=== PATIENT | female | born 1955 | race Caucasian/White ===

== ENCOUNTER 2023-04-29 16:21 | Outpatient (AMB) | payer OTHER, SELFPAY ==
[2023-04-29 16:23] VITALS: BP 112/80; PULSE 81; O2SAT 100; BMI 28.8
--- NOTE | 2023-04-29 16:23 | A.OFFPC_ITS ---
Vital Signs 04/29/23 16:23 Height 5 ft 5 in Weight 173 lb BMI 28.8 BP 112/80 Blood Pressure Location Lt brachial Position Sitting Pulse 81 Pulse Source Pulse Oximeter Temp Source Skin Pulse Oximetry (%) 100 Oxygen Delivery Method Room Air Intake Visit Reasons: PE Photograph Enlarger Required: No Allergies No Known Allergies Allergy (Verified 04/29/23 16:36) Medication List - Last Reconciled 04/29/23 by EAGLE Richardson aspirin 81 mg PO DAILY atorvastatin 40 mg PO DAILY hydroxyzine HCl 25 mg PO Q12H PRN lisinopril 30 mg PO DAILY triamcinolone acetonide 0.1% 1 appl topical BID PRN zolpidem 5 mg PO BEDTIME PRN Tobacco use date assessed: 04/29/23 Fall risk assessment: No Falls in past year Last assessed Fall Risk: 04/29/23 Dental Screening Dental Screen Date: 04/29/23 Did you have a dental visit in the last 12 months?: Yes Did you have a dental problem in the last 6 months where you did not have access to dental care?: No Was dental information given to patient?: Patient has dentist HPI PE HPI Details Patient is a 68-year-old female presents today for physical exam. Medical history significant for hypertension, hypercholesterolemia, insomnia, anxiety. Patient reports last colonoscopy in 2017 which was normal and was done at [facility], she is due for colonoscopy every 5 years, she will call for a colonoscopy. Patient reports that she received a letter for mammogram from [facility], she will make an appointment, she will also make an appointment for bone density screen. Patient reports that hydroxyzine is not helping with anxiety, she is interested in sertraline. She will be seeing therapist. Patient reports intermittent urinary incontinence, reports history of right total knee replacement couple months ago and followed by [facility], reports that urinary incontinence might be due to her not getting on time to the bathroom. She will speak with her gynecology in regards to this. Up-to-date with immunizations. 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 1. Little interest or pleasure in doing things: not at all 2. Feeling down, depressed, or hopeless: not at all 3. Trouble falling or staying asleep, or sleeping too much: not at all 4. Feeling tired or having little energy: not at all 5. Poor appetite or overeating: not at all 6. Feeling bad about yourself - or that you are a failure or have let yourself or your family down: not at all 7. Trouble concentrating on things, such as reading the newspaper or watching television: not at all 8. Moving or speaking so slowly that other people could have noticed. Or the opposite - being so fidgety or restless that you have been moving around a lot more than usual: not at all 9. Thoughts that you would be better off or of hurting yourself in some way: not at all Total score: 0 Depression Screening Interpretation: Negative 10078 - PHQ-9 Billing: Yes Source: Developed by Drs. Andrea Jerry, Aliza Banegas, Sarthak Campbell and colleagues, with an educational gucci from [employer]. Thrive Questionnaire Date Thrive assessed: 04/29/23 I am a: Patient What is your living situation today?: I have a steady place to live Within the past 12 months, did the food you bought not last and you didn't have the money to get more?: Never true Within the past 12 months, did you worry whether your food would run out before you got money to buy more?: Never true Do you have trouble paying for medicines?: No Do you have trouble getting transportation to medical appointments?: No Do you have trouble paying your heating and electricity bill?: No Do you have trouble taking care of your child, family member or friend?: No Do you have trouble with day-to-day activities such as bathing, preparing meals, shopping, managing finances, etc.?: No Are you currently unemployed and looking for a job?: No Are you interested in more education?: No Currently or been in a relationship where the following occur: no concerns reported AUDIT C Alcohol Use Questionnaire (AUDIT-C) 1. How often do you have a drink containing alcohol?: 4 or more times a week (wine ) 2. How many drinks containing alcohol do you have on a typical day when you are drinking?: 1 or 2 3. How often do you have six or more drinks on one occasion?: Never Total Score: 4 Score Reviewed/Action Taken: Yes EPIFANIO-7 AMB Questionnaire EPIFANIO-7 Date EPIFANIO - 7 assessed: 04/29/23 Feeling nervous, anxious, or on edge: 1 = Several days Not being able to stop or control worryin = Not at all Worrying too much about different things: 0 = Not at all Trouble relaxin = Not at all Being so restless that it is hard to sit still: 0 = Not at all Becoming easily annoyed or irritable: 0 = Not at all Feeling afraid as if something awful might happen: 0 = Not at all Total EPIFANIO-7 score (0-4 normal; 5-9 mild; 10-14 moderate; 15-21 severe): 1 Source: Developed by Drs. Andrea Jerry, Aliza Banegas, Sarthak Campbell and colleagues, with an educational gucci from [employer]. EPIFANIO-7 Assessment Billing EPIFANIO-7 Assessment Tool: EPIFANIO-7 Assessment 54056 Review of Systems Const Denies body aches, Denies chills, Denies fever(s) and Denies headache(s) Eyes Denies change in vision ENT Denies dizziness, Denies otalgia, Denies headache(s), Denies nasal discharge, Denies sinus pain and Denies sore throat Card Denies chest pain, Denies edema, Denies lightheadedness and Denies dyspnea Resp Denies chest congestion, Denies cough and Denies dyspnea GI Denies abdominal pain, Reports constipation (Intermittent), Denies diarrhea, Denies nausea and Denies vomiting Reports as per HPI and Denies dysuria Musc Denies myalgias Skin/Breast Denies lesions and Denies rash Neuro Denies dizziness and Denies headache(s) Physical exam (Primary Care) Vital Signs: Last Vital Signs Pulse 81 04/29/23 16:23 BP 112/80 04/29/23 16:23 Pulse Ox 100 04/29/23 16:23 Oxygen Delivery Method Room Air 04/29/23 16:23 BMI result Body Mass Index 28.8 Tobacco/Smoking Status: Tobacco use Status Tobacco use date assessed 04/29/23 04/29/23 16:31 Patient Tobacco Use Status Former Tobacco user 04/29/23 16:31 e-Cigarette/Vaping Use Never Used 04/29/23 16:31 PHQ-9: PHQ-9 Score PHQ-9: Total score 0 04/29/23 16:31 Depression Screening Interpretation: Negative Thrive Assessment: Date of Thrive Assessment Date Thrive assessed 04/29/23 04/29/23 16:31 Currently or been in a relationship where the following occur: no concerns reported Const General: cooperative and no acute distress Orientation/consciousness: patient oriented x3 HENMT Head: Yes normocephalic and Yes atraumatic Ears: TM's normal bilaterally Face and sinus: Yes sinuses nontender Mouth: oropharynx normal and moist mucous membranes Throat: Yes posterior oropharynx normal Eyes General: appearance normal, both eyes and all related structures Pupils: Equal, round and reactive pupils present EOM: EOMs intact bilaterally Neck Neck: Yes normal visual inspection, Yes full ROM and Yes no lymphadenopathy Thyroid: Thyroid normal Resp Effort & Inspection: normal respiratory effort and able to speak in complete sentences Auscultation: clear to auscultation bilaterally, no crackles, no rales, no rhonchi and no wheezes Cardio Rate: regular rate Rhythm: regular rhythm Heart sounds: S1 normal heart sound present, S2 normal heart sound present and no murmurs GI Palpation (GI): Soft to palpation, not firm, nontender, no guarding, not rigid and no hepatosplenomegaly Auscultation: normal bowel sounds Skin General skin exam: no rashes or lesions noted Neuro General: patient oriented x3 Cranial nerves: Yes Equal, round and reactive pupils present Gait exam (Neuro): Normal gait present Extrem General: Yes full ROM and No edema Assessment and Plan Assessment & Plan (1) Anxiety: Code(s): F41.9 - Anxiety disorder, unspecified Plan: Start sertraline 25 mg daily - adverse reactions reviewed with the patient and discussed when notify provider or go to the emergency department Patient agreed with the plan Follow-up in 6 weeks (2) Insomnia: Code(s): G47.00 - Insomnia, unspecified Plan: Zolpidem 5 mg at bedtime p.r.n. Sleep hygiene (3) Hypercholesterolemia: Code(s): E78.00 - Pure hypercholesterolemia, unspecified Plan: LDL 107 07/2022 Atorvastatin 40 mg daily Low-cholesterol diet (4) Essential hypertension: Code(s): I10 - Essential (primary) hypertension Plan: Goal BP equal or less than 140/90 Lisinopril 30 mg daily Low-sodium diet and healthy food choices (5) Physical exam: Comment: Reports due for colonoscopy this 2021. Due every 5 years d/t father hx of colon cancer. Last pap with Dr. Bell[facility] [place]. UTD with eye exam. Reports UTD COVID IZs, shingrix X2, flu. Code(s): Z00.00 - Encounter for general adult medical examination without abnormal findings (6) Screening for breast cancer: Code(s): Z12.39 - Encounter for other screening for malignant neoplasm of breast Plan: Patient received a letter from [facility] for a mammogram, she will call to make an appointment (7) Screening for colon cancer: Code(s): Z12.11 - Encounter for screening for malignant neoplasm of colon Plan: Patient will call [facility] for a colonoscopy-reports she has a phone number (8) Post-menopausal: Code(s): Z78.0 - Asymptomatic menopausal state Plan: Patient will call [facility] for bone density screen Orders: Orders Vitamin B12 and Folate Today Z00.00 - Encounter for general adult medical examination without abnormal findings Comprehensive [place]. Panel Fast Today I10 - Essential (primary) hypertension Lipid Panel Today E78.00 - Pure hypercholesterolemia, unspecified TSH reflex Free T4 Today I10 - Essential (primary) hypertension Vitamin D 25-OH Total Today Z00.00 - Encounter for general adult medical examination without abnormal findings Complete Blood Count Auto Diff Today I10 - Essential (primary) hypertension Medications: New sertraline 25 mg PO DAILY 30 tabs 2RF F41.9 - Anxiety disorder, unspecified Refilled zolpidem 5 mg PO BEDTIME PRN 30 tabs 0RF insomnia G47.00 - Insomnia, unspecified Discontinued hydroxyzine HCl Discontinued Reason: Patient no longer taking 25 mg PO Q12H PRN 14 tabs 0RF anxiety F41.9 - Anxiety disorder, unspecified Coding Level of Care Code Est Pt Prev Care >65y(92465) Diagnoses Anxiety F41.9 Insomnia G47.00 Hypercholesterolemia E78.00 Essential hypertension I10 Physical exam Z00.00 Screening for breast cancer Z12.39 Screening for colon cancer Z12.11 Post-menopausal Z78.0 Additional Codes EPIFANIO-7 Assessment Billing - EPIFANIO-7 Assessment Tool: EPIFANIO-7 Assessment 84744 ([id number])
== END 2023-04-29 17:07 | disposition home or self-care (01) ==
PROVIDERS: PCP Nurse Practitioner Family; Visit Provider Nurse Practitioner Family
DX: Z00.00 Encounter for general adult medical examination without abnormal findings (principal); F41.9 Anxiety disorder, unspecified; G47.00 Insomnia, unspecified; I10 Essential (primary) hypertension; E78.00 Pure hypercholesterolemia, unspecified; Z12.39 Encounter for other screening for malignant neoplasm of breast; Z12.11 Encounter for screening for malignant neoplasm of colon; Z78.0 Asymptomatic menopausal state
CPT/HCPCS: 99397

== ENCOUNTER 2023-06-08 16:46 | Outpatient (AMB) | payer OTHER, SELFPAY ==
--- NOTE | 2023-06-08 16:49 | A.OFFPC_ITS ---
Vital Signs 06/08/23 16:50 Height 5 ft 5 in Weight 177 lb BMI 29.5 BP 152/70 H Blood Pressure Location Lt brachial Position Sitting Pulse 65 Pulse Source Pulse Oximeter Pulse Oximetry (%) 100 Oxygen Delivery Method Room Air Intake Visit Reasons: F/u anxiety Allergies No Known Allergies Allergy (Verified 06/08/23 16:55) Medication List - Last Reconciled 06/08/23 by EAGLE Richardson aspirin 81 mg PO DAILY atorvastatin 40 mg PO DAILY lisinopril 30 mg PO DAILY sertraline 50 mg PO DAILY triamcinolone acetonide 0.1% 1 appl topical BID PRN zolpidem 5 mg PO BEDTIME PRN Tobacco use date assessed: 06/08/23 Fall risk assessment: No Falls in past year Last assessed Fall Risk: 06/08/23 Dental Screening Dental Screen Date: 06/08/23 Did you have a dental visit in the last 12 months?: Yes Did you have a dental problem in the last 6 months where you did not have access to dental care?: No Was dental information given to patient?: Patient has dentist HPI F/u anxiety HPI Details Patient is a 68-year-old female who presents today to follow-up on anxiety. Medical history significant for hypertension, hypercholesterolemia, vitamin-D deficiency, insomnia. At the last office visit patient was started on sertraline 25 mg daily, then she was seen by Psychiatry and sertraline was increased to 50 mg last week and she reports it will be increased to 100 mg in 2 weeks. Patient reports some improvement in her anxiety. Patient is followed by Psychiatry Dr. Cho. Patient reports that she will be seen therapist. Recent blood work results reviewed with the patient from 05/2023, vitamin-D 25.2, encouraged patient to start vitamin-D3 1000 units daily, she reports she has vitamin-D at home. In addition, patient reports left hip lump that she noticed 4 weeks ago, would like evaluation for this. 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 1. Little interest or pleasure in doing things: not at all 2. Feeling down, depressed, or hopeless: not at all 3. Trouble falling or staying asleep, or sleeping too much: not at all 4. Feeling tired or having little energy: not at all 5. Poor appetite or overeating: not at all 6. Feeling bad about yourself - or that you are a failure or have let yourself or your family down: not at all 7. Trouble concentrating on things, such as reading the newspaper or watching television: not at all 8. Moving or speaking so slowly that other people could have noticed. Or the op posite - being so fidgety or restless that you have been moving around a lot more than usual: not at all 9. Thoughts that you would be better off or of hurting yourself in some way: not at all Total score: 0 Depression Screening Interpretation: Negative 70688 - PHQ-9 Billing: Yes Source: Developed by Drs. Andrea Jerry, Aliza Banegas, Sarthak Campbell and colleagues, with an educational gucci from [employer]. Thrive Questionnaire Date Thrive assessed: 04/29/23 I am a: Patient What is your living situation today?: I have a steady place to live Within the past 12 months, did the food you bought not last and you didn't have the money to get more?: Never true Within the past 12 months, did you worry whether your food would run out before you got money to buy more?: Never true Do you have trouble paying for medicines?: No Do you have trouble getting transportation to medical appointments?: No Do you have trouble paying your heating and electricity bill?: No Do you have trouble taking care of your child, family member or friend?: No Do you have trouble with day-to-day activities such as bathing, preparing meals, shopping, managing finances, etc.?: No Are you currently unemployed and looking for a job?: No Are you interested in more education?: No Currently or been in a relationship where the following occur: no concerns reported EPIFANIO-7 AMB Questionnaire EPIFANIO-7 Date EPIFANIO - 7 assessed: 04/29/23 Feeling nervous, anxious, or on edge: 1 = Several days Not being able to stop or control worryin = Not at all Worrying too much about different things: 0 = Not at all Trouble relaxin = Not at all Being so restless that it is hard to sit still: 0 = Not at all Becoming easily annoyed or irritable: 0 = Not at all Feeling afraid as if something awful might happen: 0 = Not at all Total EPIFANIO-7 score (0-4 normal; 5-9 mild; 10-14 moderate; 15-21 severe): 1 Source: Developed by Drs. Andrea Jerry, Aliza Banegas, Sarthak Campbell and colleagues, with an educational gucci from [employer]. EPIFANIO-7 Assessment Billing EPIFANIO-7 Assessment Tool: EPIFANIO-7 Assessment 63758 Review of Systems Const Denies body aches, Denies chills, Denies fever(s) and Denies headache(s) Eyes Denies change in vision ENT Denies dizziness, Denies otalgia, Denies headache(s), Denies nasal discharge, Denies sinus pain and Denies sore throat Card Denies chest pain, Denies edema, Denies lightheadedness and Denies dyspnea Resp Denies cough, Denies dyspnea and Denies wheezing GI Denies abdominal pain Denies dysuria Musc Denies myalgias Skin/Breast Reports as per HPI and Denies rash Neuro Denies dizziness and Denies headache(s) Aller/Immun Denies wheezing Physical exam (Primary Care) Vital Signs: Last Vital Signs Pulse 65 06/08/23 16:50 BP 152/70 H 06/08/23 16:50 Pulse Ox 100 06/08/23 16:50 Oxygen Delivery Method Room Air 06/08/23 16:50 BMI result Body Mass Index 29.5 Tobacco/Smoking Status: Tobacco use Status Tobacco use date assessed 06/08/23 06/08/23 16:54 Patient Tobacco Use Status Former Tobacco user 06/08/23 16:54 e-Cigarette/Vaping Use Never Used 06/08/23 16:54 PHQ-9: PHQ-9 Score PHQ-9: Total score 0 06/08/23 16:54 Depression Screening Interpretation: Negative Thrive Assessment: Date of Thrive Assessment Date Thrive assessed 04/29/23 06/08/23 16:54 Currently or been in a relationship where the following occur: no concerns repo rted Const General: cooperative and no acute distress Orientation/consciousness: patient oriented x3 HENMT Head: Yes normocephalic and Yes atraumatic Eyes General: appearance normal, both eyes and all related structures Neck Neck: Yes normal visual inspection and Yes full ROM Resp Effort & Inspection: normal respiratory effort and able to speak in complete sentences Auscultation: clear to auscultation bilaterally, no crackles, no rales, no rhonchi and no wheezes Cardio Rate: regular rate Rhythm: regular rhythm Heart sounds: S1 normal heart sound present, S2 normal heart sound present and no murmurs GI Auscultation: normal bowel sounds Skin General skin exam: no rashes or lesions noted Full body images: 1. Left anterior hip nontender round lump about 1 cm hard to touch, skin is intact Neuro General: patient oriented x3 Gait exam (Neuro): Normal gait present Extrem General: Yes full ROM Assessment and Plan Assessment & Plan (1) Skin lump of leg: Code(s): R22.40 - Localized swelling, mass and lump, unspecified lower limb Plan: Left anterior hip nontender round lump about 1 cm hard to touch, skin is intact Will obtain ultrasound (2) Anxiety: Code(s): F41.9 - Anxiety disorder, unspecified Plan: Continue to follow-up with Psychiatry Dr. Cho Patient reports that she will be seeing therapist as well Currently on sertraline 50 mg daily, she reports that this will be increased to 100 mg in 2 weeks (3) Vitamin D deficiency: Code(s): E55.9 - Vitamin D deficiency, unspecified Plan: Vitamin-D 25.2 05/2023 Patient will start vitamin-D3 1000 units daily, she reports she has vitamin-D at home Plan Follow-up in 4 months or sooner as needed Orders: Orders US extremity nonvascular garcía Today R22.40 - Localized swelling, mass and lump, unspecified lower limb Medications: Changed From sertraline 25 mg PO DAILY 30 tabs 2RF F41.9 - Anxiety disorder, unspecified To sertraline 50 mg PO DAILY F41.9 - Anxiety disorder, unspecified Coding Level of Care Code Est Pt Level 3 (48616) Diagnoses Skin lump of leg R22.40 Anxiety F41.9 Vitamin D deficiency E55.9 Additional Codes EPIFANIO-7 Assessment Billing - EPIFANIO-7 Assessment Tool: EPIFANIO-7 Assessment 77039 ([id number])
[2023-06-08 16:50] VITALS: BP 152/70; PULSE 65; O2SAT 100; BMI 29.5
== END 2023-06-08 17:09 | disposition home or self-care (01) ==
PROVIDERS: PCP Nurse Practitioner Family; Visit Provider Nurse Practitioner Family
DX: R22.40 Localized swelling, mass and lump, unspecified lower limb (principal); F41.9 Anxiety disorder, unspecified; E55.9 Vitamin D deficiency, unspecified
CPT/HCPCS: 99213

== ENCOUNTER 2023-06-24 15:41 | Outpatient (REF) | payer OTHER, SELFPAY ==
--- NOTE | ~2023-06-24 | US_ITS ---
EXAMINATION: US EXTREMITY NONVASCULAR, SOFT TISSUES HIP, LEFT CLINICAL INFORMATION: Nontender, palpable lump at the anterolateral left hip. COMPARISON: None. TECHNIQUE: Using a linear transducer with grayscale and color modalities, ultrasound examination is performed of the anterolateral left hip soft tissues. FINDINGS: The cutaneous, subcutaneous, muscular and fascial planes are unremarkable. Corresponding with the palpable finding at the area of clinical concern, a 1.0 x 0.8 x 0.9 cm subdermal mixed echotexture, circumscribed collection is seen. This shows no associated color Doppler flow. No focal draining sinus tract is seen. No solid mass is seen. No foreign body is seen. There is no definite lymphadenopathy. US/US extremity nonvascular garcía IMPRESSION: A 1.0 cm subdermal complex cyst is seen in the anterolateral left hip soft tissues, corresponding with the palpable finding. The possibility of a sebaceous cyst is raised; the exact etiology is indeterminate. Recommend management on a clinical basis.
== END 2023-06-24 15:42 | disposition home or self-care (01) ==
LOC: HO.US 15:41
PROVIDERS: PCP Nurse Practitioner Family; Visit Provider Nurse Practitioner Family
DX: R22.40 Localized swelling, mass and lump, unspecified lower limb (principal)
CPT/HCPCS: 76882

== ENCOUNTER 2023-08-02 12:48 | Outpatient (REF) | payer OTHER, SELFPAY | END 2023-08-02 12:49 | disposition home or self-care (01) | LOC: HO.SH 12:48 | PROVIDERS: Visit Provider Nurse Practitioner Family | DX: Z01.118 Encounter for examination of ears and hearing with other abnormal findings (principal); H90.3 Sensorineural hearing loss, bilateral | CPT/HCPCS: 92557 ==

== ENCOUNTER 2023-09-28 16:35 | Outpatient (AMB) | payer OTHER, SELFPAY ==
[2023-09-28 16:39] VITALS: BP 158/84; PULSE 69; O2SAT 100; BMI 31.1
--- NOTE | 2023-09-28 16:39 | A.OFFPC_ITS ---
Vital Signs 09/28/23 16:39 09/28/23 17:11 Height 5 ft 5 in Weight 187 lb BMI 31.1 BP 158/84 H 150/78 H Blood Pressure Location Lt brachial Lt brachial Position Sitting Sitting Pulse 69 Pulse Source Pulse Oximeter Pulse Oximetry (%) 100 Oxygen Delivery Method Room Air Intake Visit Reasons: F/U on HTN, HLD Front Office Medical Assistant Required: No Orthotic And Prosthetic Technician: Not Required per policy Accompanied by: Self / Same As Patient Allergies No Known Allergies Allergy (Verified 09/28/23 17:03) Medication List - Last Reconciled 09/28/23 by EAGLE Richardson aspirin 81 mg PO DAILY atorvastatin 40 mg PO DAILY fluoxetine 20 mg PO DAILY lisinopril 30 mg PO DAILY triamcinolone acetonide 0.1% 1 appl topical BID PRN zolpidem 5 mg PO BEDTIME PRN Tobacco use date assessed: 06/08/23 Fall risk assessment: No Falls in past year Last assessed Fall Risk: 09/28/23 Dental Screening Dental Screen Date: 09/28/23 Did you have a dental visit in the last 12 months?: Yes Did you have a dental problem in the last 6 months where you did not have access to dental care?: No Was dental information given to patient?: Patient has dentist HPI F/U on HTN, HLD HPI Details Patient is a 68-year-old female who presents today for a routine follow-up. Medical history significant for hypertension, hypercholesterolemia, vitamin-D deficiency, insomnia. Patient reports that she is compliant with medications and denies side effects. Reports her left eye is red for the past 2 days, after shower started with red eye, no irritation, no pain, no discharge, no burning sensation, no vision changes. No shortness of breath or chest pain. 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 Andrea Jerry, Aliza Banegas, Sarthak Campbell and colleagues, with an educational gucci from [employer]. Review of Systems Const Denies body aches, Denies chills, Denies fever(s) and Denies headache(s) Eyes Reports as per HPI and Denies change in vision ENT Denies dizziness, Denies otalgia, Denies headache(s), Denies nasal discharge, Denies sinus pain and Denies sore throat Card Denies chest pain, Denies edema, Denies lightheadedness and Denies dyspnea Resp Denies cough, Denies dyspnea and Denies wheezing GI Denies abdominal pain Denies dysuria Musc Denies myalgias Skin/Breast Denies rash Neuro Denies dizziness and Denies headache(s) Aller/Immun Denies wheezing Physical exam (Primary Care) Vital Signs: Last Vital Signs Pulse 69 09/28/23 16:39 BP 150/78 H 09/28/23 17:11 Pulse Ox 100 09/28/23 16:39 Oxygen Delivery Method Room Air 09/28/23 16:39 BMI result Body Mass Index 31.1 Tobacco/Smoking Status: Tobacco use Status Tobacco use date assessed 06/08/23 09/28/23 16:40 Patient Tobacco Use Status Former Tobacco user 09/28/23 16:40 e-Cigarette/Vaping Use Never Used 09/28/23 16:40 Thrive Assessment: Date of Thrive Assessment Date Thrive assessed 04/29/23 09/28/23 16:40 Const General: cooperative and no acute distress Orientation/consciousness: patient oriented x3 HENMT Head: Yes normocephalic and Yes atraumatic Face and sinus: Yes sinuses nontender Mouth: oropharynx normal and moist mucous membranes Throat: Yes posterior oropharynx normal Eyes Other: Left conjunctival medial erythema, no discharge General: appearance normal, both eyes and all related structures Pupils: Equal, round and reactive pupils present EOM: EOMs intact bilaterally Neck Neck: Yes normal visual inspection and Yes full ROM Resp Effort & Inspection: normal respiratory effort and able to speak in complete sentences Auscultation: clear to auscultation bilaterally, no crackles, no rales, no rhonchi and no wheezes Cardio Rate: regular rate Rhythm: regular rhythm Heart sounds: S1 normal heart sound present and S2 normal heart sound present GI Auscultation: normal bowel sounds Skin General skin exam: no rashes or lesions noted Neuro General: patient oriented x3 Cranial nerves: Yes Equal, round and reactive pupils present Gait exam (Neuro): Normal gait present Extrem General: Yes full ROM and No edema Assessment and Plan Assessment & Plan (1) Anxiety: Code(s): F41.9 - Anxiety disorder, unspecified Plan: Continue to follow-up with Psychiatry Dr. Cho Continue fluoxetine (2) Insomnia: Code(s): G47.00 - Insomnia, unspecified Plan: Zolpidem 5 mg at bedtime p.r.n. Sleep hygiene (3) Hypercholesterolemia: Code(s): E78.00 - Pure hypercholesterolemia, unspecified Plan: LDL 113 05/2023 Atorvastatin 40 mg daily Low-cholesterol diet (4) Essential hypertension: Code(s): I10 - Essential (primary) hypertension Plan: Goal BP equal or less than 140/90 Lisinopril 30 mg daily Low-sodium diet and healthy food choices Encouraged patient to monitor blood pressures at home (5) Subconjunctival hemorrhage of left eye: Code(s): H11.32 - Conjunctival hemorrhage, left eye Plan: Suspect subconjunctival hemorrhage of left eye, will resolve on its own in couple weeks Signs and symptoms reviewed when to notify provider or go to the emergency department Patient agreed with the plan Plan Keep appointment as scheduled Orders: Orders Lipid Panel 09/28/23 E78.00 - Pure hypercholesterolemia, unspecified Vitamin B12 and Folate 09/28/23 E78.00 - Pure hypercholesterolemia, unspecified Comprehensive [place]. Panel Fast 09/28/23 E78.00 - Pure hypercholesterolemia, unspecified Coding Level of Care Code Est Pt Level 4 (10536) Diagnoses Anxiety F41.9 Insomnia G47.00 Hypercholesterolemia E78.00 Essential hypertension I10 Subconjunctival hemorrhage of left eye H11.32
[2023-09-28 17:11] VITALS: BP 150/78
== END 2023-09-28 17:19 | disposition home or self-care (01) ==
PROVIDERS: PCP Nurse Practitioner Family; Visit Provider Nurse Practitioner Family
DX: F41.9 Anxiety disorder, unspecified (principal); G47.00 Insomnia, unspecified; E78.00 Pure hypercholesterolemia, unspecified; I10 Essential (primary) hypertension; H11.32 Conjunctival hemorrhage, left eye
CPT/HCPCS: 99214

== ENCOUNTER 2023-12-07 07:56 | Outpatient (AMB) | payer OTHER, SELFPAY ==
--- NOTE | 2023-12-07 08:04 | A.OFFPC_ITS ---
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 [place] Allergies No Known Allergies Allergy (Verified 12/07/23 08:12) Medication List - Last Reconciled 12/07/23 by BRANDYN Boyce atorvastatin 40 mg PO DAILY cholecalciferol (vitamin D3) 50 mcg PO DAILY lisinopril 40 mg PO DAILY 14 days mecobalamin (vitamin B12) 1,000 mcg sublingual BEDTIME multivitamin 1 tab PO DAILY triamcinolone acetonide 0.1% 1 appl topical BID PRN venlafaxine ER 75 mg PO BEDTIME venlafaxine ER 37.5 mg PO BEDTIME zolpidem 5 mg PO BEDTIME PRN Tobacco use date assessed: 06/08/23 HPI HPI Comments History of Present Illness Details 68-year-old female with anxiety, vitami n-D deficiency, hyperlipidemia, hypertension, insomnia, rosacea, former smoker, urinary incontinence, B12 deficiency, sensorineural hearing loss bilat, PVD s/p R TKR 2022 Specialist Orthopedics GI Counselor/Psychiatry Dr Demetris Hernandez Child Nutrition Director Health maintenance Pap smear 01/15/2021 at [facility] within normal limits Colonoscopy due in 2021, Q 5 years positive family history of colon cancer in dad, scheduled December 2023 [facility] Vaccines up-to-date on shingles DEXA 06/30/2023 normal repeat June of 2025 Mammogram 06/30/2023 [facility] Here today to est care. Feels great Now on Effexor - managed by outside prescriber. Insomnia is also managed by outside prescriber Cont active w/ Ortho. s/p R TKR. Now having Left hip pain. Getting cortisone shots. Will start PT end of this month. Tolerate noncompliant of blood pressure medications as well as cholesterol medications Taking B12 and vitamin-D supplements as directed Hearing exam done. Has hearing aids ordered she just needs to pick them up [facility] Medical History (Updated 12/07/23 @ 08:49 by BRANDYN Boyce) COVID Encounter to establish care Surgical History History of total knee replacement (TKR) History of left hip replacement History of dental surgery History of back surgery History of hip replacement, total Social History Housing: House Alcohol intake: current Alcohol intake frequency: 0-2 drinks per day Alcohol type: wine Patient Tobacco Use Status: Former Tobacco user e-Cigarette/Vaping Use: Never Used Second Hand Smoke Exposure: No service: No Current occupational status: employed 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 1. Little interest or pleasure in doing things: not at all 2. Feeling down, depressed, or hopeless: not at all 3. Trouble falling or staying asleep, or sleeping too much: not at all 4. Feeling tired or having little energy: not at all 5. Poor appetite or overeating: not at all 6. Feeling bad about yourself - or that you are a failure or have let yourself or your family down: not at all 7. Trouble concentrating on things, such as reading the newspaper or watching television: not at all 8. Moving or speaking so slowly that other people could have noticed. Or the opposite - being so fidgety or restless that you have been moving around a lot more than usual: not at all 9. Thoughts that you would be better off or of hurting yourself in some way: not at all Total score: 0 Depression Screening Interpretation: Negative Depression Screening Done: Yes 68858 - PHQ-9 Billing: Yes Source: Developed by Drs. Andrea Jerry, Aliza Banegas, Sarthak Campbell and colleagues, with an educational gucci from [employer]. Thrive Questionnaire Date Thrive assessed: 04/29/23 I am a: Patient What is your living situation today?: I have a steady place to live Within the past 12 months, did the food you bought not last and you didn't have the money to get more?: Never true Within the past 12 months, did you worry whether your food would run out before you got money to buy more?: Never true Do you have trouble paying for medicines?: No Do you have trouble getting transportation to medical appointments?: No Do you have trouble paying your heating and electricity bill?: No Do you have trouble taking care of your child, family member or friend?: No Do you have trouble with day-to-day activities such as bathing, preparing meals, shopping, managing finances, etc.?: No Are you currently unemployed and looking for a job?: No Are you interested in more education?: No Please select the resources that you would like help with: None Currently or been in a relationship where the following occur: no concerns reported THRIVE Score: 0 AUDIT C Alcohol Use Questionnaire (AUDIT-C) 1. How often do you have a drink containing alcohol?: 4 or more times a week 2. How many drinks containing alcohol do you have on a typical day when you are drinking?: 1 or 2 3. How often do you have six or more drinks on one occasion?: Never Total Score: 4 Score Reviewed/Action Taken: Yes EPIFANIO-7 AMB Questionnaire EPIFANIO-7 Date EPIFANIO - 7 assessed: 04/29/23 Feeling nervous, anxious, or on edge: 0 = Not at all Not being able to stop or control worryin = Not at all Worrying too much about different things: 0 = Not at all Trouble relaxin = Not at all Being so restless that it is hard to sit still: 0 = Not at all Becoming easily annoyed or irritable: 0 = Not at all Feeling afraid as if something awful might happen: 0 = Not at all Total EPIFANIO-7 score (0-4 normal; 5-9 mild; 10-14 moderate; 15-21 severe): 0 Source: Developed by Drs. Andrea Jerry, Aliza Banegas, Sarthak Campbell and colleagues, with an educational gucci from [employer]. EPIFANIO-7 Assessment Billing EPIFANIO-7 Assessment Tool: EPIFANIO-7 Assessment 09713 Review of Systems Const All systems reviewed & are unremarkable except as noted in HPI and below Physical exam (Primary Care) Tobacco/Smoking Status: Tobacco use Status Tobacco use date assessed 06/08/23 09/28/23 16:40 Patient Tobacco Use Status Former Tobacco user 09/28/23 16:40 e-Cigarette/Vaping Use Never Used 09/28/23 16:40 Depression Screening Interpretation: Negative Thrive Assessment: Date of Thrive Assessment Date Thrive assessed 04/29/23 09/28/23 16:40 Currently or been in a relationship where the following occur: no concerns reported Const Other: Awake alert oriented Sclera is nonicteric bilat Mucous membranes moist No carotid bruit bilat Regular rate and rhythm Lung sounds clear to auscultation bilat Abdomen soft nontender, no hepatomegaly No edema bilateral lower extremities, decreased pedal pulses bilat, skin intact, hairless Mood and affect appropriate Assessment and Plan Assessment & Plan (1) EPIFANIO (generalized anxiety disorder): Comment: Managed well by outside prescriber. On Effexor. Code(s): F41.1 - Generalized anxiety disorder (2) Former smoker: Code(s): Z87.891 - Personal history of nicotine dependence (3) B12 deficiency: Comment: On sublingual B12 supplement. We will check labs today. Code(s): E53.8 - Deficiency of other specified B group vitamins (4) Urinary incontinence: Code(s): R32 - Unspecified urinary incontinence Qualifiers: Urinary Incontinence type: mixed stress and urge incontinence Qualified Code(s): N39.46 - Mixed incontinence (5) Sensorineural hearing loss: Comment: Audiogram done. Hearing aids ordered. 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 DEXA done June of 2023 and within normal limits. Repeat bone density every 2 years, next due June of 2025 Code(s): Z78.0 - Asymptomatic menopausal state (7) Insomnia: Comment: Managed by outside prescriber. On Ambien. Code(s): G47.00 - Insomnia, unspecified Qualifiers: Insomnia type: due to other mental disorder Qualified Code(s): F51.05 - Insomnia due to other mental disorder; F99 - Mental disorder, not otherwise specified (8) Vitamin D deficiency: Comment: On vitamin-D supplementation. We will check vitamin-D level today Code(s): E55.9 - Vitamin D deficiency, unspecified (9) Hypercholesterolemia: Comment: On atorvastatin 40. Managing well without side effects. Lipid panel ordered today. LDL goal less than 70 Code(s): E78.00 - Pure hypercholesterolemia, unspecified (10) Essential hypertension: Comment: Blood pressure at target of less than 130/80 on lisinopril 40 mg continue Code(s): I10 - Essential (primary) hypertension (11) PVD (peripheral vascular disease): Comment: Of bilateral lower extremities based on physical exam of decreased pedal pulses, hairless skin. On statin. Was on aspirin for greater than 10 years. Discussion had today and shared decision-making to discontinue after she completes her medication that she has on hand. Code(s): I73.9 - Peripheral vascular disease, unspecified Plan Total time spent caring for the patient today was 60 minutes. This includes time spent before the visit reviewing the chart, time spent during the visit, and time spent after the visit on documentation This note is constructed using voice recognition software. While every effort has been made to ensure accuracy in algebra teacher, still errors may have been included Sometimes, these errors may affect the content or meaning of the given sentence . Orders: Orders Lipid Panel Today E53.8 - Deficiency of other specified B group vitamins, E55.9 - Vitamin D deficiency, unspecified, E78.00 - Pure hypercholesterolemia, unspecified, I10 - Essential (primary) hypertension, Z78.0 - Asymptomatic menopausal state Vitamin B12 and Folate Today E53.8 - Deficiency of other specified B group vitamins, E55.9 - Vitamin D deficiency, unspecified, E78.00 - Pure hypercholesterolemia, unspecified, I10 - Essential (primary) hypertension, Z78.0 - Asymptomatic menopausal state Comprehensive [place]. Panel Fast Today E53.8 - Deficiency of other specified B group vitamins, E55.9 - Vitamin D deficiency, unspecified, E78.00 - Pure hypercholesterolemia, unspecified, I10 - Essential (primary) hypertension, Z78.0 - Asymptomatic menopausal state Microalbumin, Random (w Creat) Today E53.8 - Deficiency of other specified B group vitamins, E55.9 - Vitamin D deficiency, unspecified, E78.00 - Pure hypercholesterolemia, unspecified, I10 - Essential (primary) hypertension, Z78.0 - Asymptomatic menopausal state TSH reflex Free T4 Today E53.8 - Deficiency of other specified B group vitamins, E55.9 - Vitamin D deficiency, unspecified, E78.00 - Pure hypercholesterolemia, unspecified, I10 - Essential (primary) hypertension, Z78.0 - Asymptomatic menopausal state Vitamin D 1,25 dihydroxy Today E53.8 - Deficiency of other specified B group vitamins, E55.9 - Vitamin D deficiency, unspecified, E78.00 - Pure hypercholesterolemia, unspecified, I10 - Essential (primary) hypertension, Z78.0 - Asymptomatic menopausal state Coding Level of Care Code Est Pt Level 5 (46592) Diagnoses EPIFANIO (generalized anxiety disorder) F41.1 Former smoker Z87.891 B12 deficiency E53.8 Mixed stress and urge urinary incontinence N39.46 Urinary Incontinence type: mixed stress and urge incontinence Sensorineural hearing loss (SNHL) of both ears H90.3 Laterality: bilateral Post-menopausal Z78.0 Insomnia due to other mental disorder F51.05; F99 Insomnia type: due to other mental disorder Vitamin D deficiency E55.9 Hypercholesterolemia E78.00 Essential hypertension I10 PVD (peripheral vascular disease) I73.9 Additional Codes EPIFANIO-7 Assessment Billing - EPIFANIO-7 Assessment Tool: EPIFANIO-7 Assessment [id number] ([id number])
[2023-12-07 08:10] VITALS: BP 128/68; PULSE 72; O2SAT 99; BMI 30.2
== END 2023-12-07 08:51 | disposition home or self-care (01) ==
PROVIDERS: PCP Nurse Practitioner Family; Visit Provider Nurse Practitioner Family
DX: I73.9 Peripheral vascular disease, unspecified (principal); F41.1 Generalized anxiety disorder; Z87.891 Personal history of nicotine dependence; E53.8 Deficiency of other specified B group vitamins; N39.46 Mixed incontinence; H90.3 Sensorineural hearing loss, bilateral; Z78.0 Asymptomatic menopausal state; F51.05 Insomnia due to other mental disorder; F99 Mental disorder, not otherwise specified; E55.9 Vitamin D deficiency, unspecified; E78.00 Pure hypercholesterolemia, unspecified; I10 Essential (primary) hypertension
CPT/HCPCS: 99215

== ENCOUNTER 2023-12-07 08:45 | Outpatient (REF) | payer OTHER, SELFPAY ==
[2023-12-07 12:01] LABS: Cholesterol 207 mg/dL (<200); HDL Cholesterol 60 mg/dL (>40); LDL Cholesterol Calculated 121 mg/dL (<100); Triglycerides 130 mg/dL (<150)
[2023-12-07 12:16] LABS: Vitamin B12 591 pg/mL (200-900)
== END 2023-12-07 08:46 | disposition home or self-care (01) ==
LOC: HO.WFDLDS 08:45
PROVIDERS: Visit Provider Nurse Practitioner Family
DX: E53.8 Deficiency of other specified B group vitamins (principal); E55.9 Vitamin D deficiency, unspecified; I10 Essential (primary) hypertension; E78.00 Pure hypercholesterolemia, unspecified; Z78.0 Asymptomatic menopausal state
CPT/HCPCS: 36415; 80061; 82607; 82746

== ENCOUNTER 2024-01-14 07:31 | Day surgery (SDC) | payer OTHER, SELFPAY ==
--- NOTE | 2024-01-13 09:43 | P.CONAN_ITS ---
Documented by User: Azalia Brannon NP 01/13/24 09:44 HPI - Anesthesia Eval Consult details Narrative: 68yo F for Colonoscopy PMFSH Active Problems Active Problems: All Active Problems (Updated 12/07/23 @ 08:49 by EAGLE Boyce-) PVD (peripheral vascular disease) (Acute) Sensorineural hearing loss (Acute) Urinary incontinence (Acute) B12 deficiency (Acute) Former smoker (Acute) EPIFANIO (generalized anxiety disorder) (Acute) Post-menopausal (Acute) Screening for colon cancer (Acute) Screening for breast cancer (Acute) Physical exam (Acute) Pityriasis rosea (Acute) Insomnia (Acute) Vitamin D deficiency (Acute) Hypercholesterolemia (Acute) Essential hypertension (Acute) Past Medical History Medical History (Updated 01/13/24 @ 09:43 by Azalia Brannon NP) PVD (peripheral vascular disease) EPIFANIO (generalized anxiety disorder) Hypercholesterolemia Essential hypertension COVID Encounter to establish care Surgical History Surgical History History of total knee replacement (TKR) History of left hip replacement History of dental surgery History of back surgery History of hip replacement, total Social History Social History Housing: House Alcohol intake: current Alcohol intake frequency: 0-2 drinks per day Alcohol type: wine Patient Tobacco Use Status: Former Tobacco user e-Cigarette/Vaping Use: Never Used Second Hand Smoke Exposure: No Are you DNR?: No Advance Directives: No Advance Directives Information Provided: Yes service: No Current occupational status: employed 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 Cognitive needs: No Hearing needs: No Vision needs: Yes (glasses) Meds Allergies Allergy/AdvReac Type Severity Reaction Status Date / Time No Known Allergies Allergy Verified 12/07/23 08:12 Home Medications Medication Instructions Recorded Confirmed Last Taken Type cholecalciferol (vitamin D3) 50 50 mcg PO DAILY 12/07/23 12/07/23 Unknown History mcg (2,000 unit) capsule mecobalamin (vitamin B12) 1,000 1,000 mcg sublingual BEDTIME 12/07/23 12/07/23 Unknown History mcg disintegrating tablet,sublingual multivitamin 1 tab PO DAILY 12/07/23 12/07/23 Unknown History venlafaxine 37.5 mg 37.5 mg PO BEDTIME 12/07/23 12/07/23 Unknown History capsule,extended release 24 hr venlafaxine 75 mg capsule,extended 75 mg PO BEDTIME 12/07/23 12/07/23 Unknown History release 24 hr Assessment and Plan Assessment Anesthesia Assessment: Chart Reviewed Documented by User: Sloane Murdock MD 01/14/24 09:38 [facility] Past Medical History Medical History (Updated 01/13/24 @ 09:43 by Azalia Brannon NP) PVD (peripheral vascular disease) EPIFANIO (generalized anxiety disorder) Hypercholesterolemia Essential hypertension COVID Encounter to establish care Family History Family history of problems with anesthesia: No Surgical History Surgical History History of total knee replacement (TKR) History of left hip replacement History of dental surgery History of back surgery History of hip replacement, total History of Problems with Anesthesia: No Social History Social History Housing: House Alcohol intake: current Alcohol intake frequency: 0-2 drinks per day Alcohol type: wine Patient Tobacco Use Status: Former Tobacco user e-Cigarette/Vaping Use: Never Used Second Hand Smoke Exposure: No Are you DNR?: No Advance Directives: No Advance Directives Information Provided: Yes service: No Current occupational status: employed 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 Cognitive needs: No Hearing needs: No Vision needs: Yes (glasses) Meds Allergies Allergy/AdvReac Type Severity Reaction Status Date / Time No Known Allergies Allergy Verified 12/07/23 08:12 Home Medications Medication Instructions Recorded Confirmed Last Taken Type cholecalciferol (vitamin D3) 50 50 mcg PO DAILY 12/07/23 12/07/23 Unknown History mcg (2,000 unit) capsule mecobalamin (vitamin B12) 1,000 1,000 mcg sublingual BEDTIME 12/07/23 12/07/23 Unknown History mcg disintegrating tablet,sublingual multivitamin 1 tab PO DAILY 12/07/23 12/07/23 Unknown History venlafaxine 37.5 mg 37.5 mg PO BEDTIME 12/07/23 12/07/23 Unknown History capsule,extended release 24 hr venlafaxine 75 mg capsule,extended 75 mg PO BEDTIME 12/07/23 12/07/23 Unknown History release 24 hr Exam Airway Mallampati Class: II (implant front top left ) TM Dist: >3cm Neck ROM: Full Heart: rrr Lungs: cta Assessment and Plan Assessment Anesthesia Assessment: Anesthesia Plan Discussed Final Anesthetic Review Family History of Problems with Anesthesia: No History of Problems with Anesthesia: No NPO: Yes ASA Class: II Final Preanesthetic Review: No Changes in Pt Med Stat, Meds/Allgs Chart Reviewed and Consent Obtained/Reviewed Patient Risk: Low Procedure Risk: Low Anesthetic Plan Anesthetic Plan: MAC: Disposition: Standard PACU
[2024-01-14 08:00] VITALS: BP 148/60; PULSE 69; RESP 16; TEMP 36.5; O2SAT 99; BMI 30.3
[2024-01-14] MEDS: Lactated Ringers 1,000 ML 100 ML IVCONT (08:40)
--- NOTE | 2024-01-14 08:41 | MHC.SHP ---
Pre-Procedural Eval Section A - 24 Hr Update-Section A only Date of Service: 01/14/24 The patient is an INPATIENT: No The patient has been examined within 24 hours of the surgical procedure. The History & Physical has been completed within 30 days and I have reviewed it.: No Section B - Complete if H&P > 30 days Chief Complaint: Surveillance for colon polyps, FH of colon cancer Details of Present Illness: Pt denies recent change in bowel habits or rectal bleeding Relevant Family History (Specify if Yes): Yes Relevant Social History: Tobacco Use (former smoker) Present Medications: see Short Stay Collaborative assessment Medical History: Significant History (PVD, hypertension, generalized anxiety disorder) History of Previous Operations: Relevant previous surgery/procedure and date(s) (History of total knee replacement (TKR) History of left hip replacement History of dental surgery History of back surgery History of hip replacement, total) Allergies: Allergies Allergy/AdvReac Type Severity Reaction Status Date / Time No Known Allergies Allergy Verified 12/07/23 08:12 Review of Systems Sugical H&P ROS: Negative: Constitution, Cardiovascular, Respiratory and Gastrointestinal Exam Surgical H&P Exam: Normal: Heart, Normal: Lungs, Normal: Extremities and Normal: Abdomen Plan Diagnosis/Plan: Change (proceed with direct access colonoscopy) I have reviewed the history and physical and performed a pertinent physical examination on my patient. No changes have occurred unless specified. Time Spent With Patient Time: Total time managing care of this patient today ____ minutes.
--- NOTE | 2024-01-14 08:43 | W.PM.OPN ---
Operative Note Operative Note Date of Service: 01/14/24 Narrative: COLONOSCOPY TILL CECUM WITH BIOPSIES AND SNARE POLYPECTOMY Pre-op diagnosis: Direct access colonoscopy for surveillance for colon polyps (pt reports polyps were removed during her 1st colonoscopy 18 yrs ago and none since. Dad had colon cancer in his 60's). Post-op diagnosis:? Colon polyps, Diverticulosis, hemorrhoids Endoscopist:? Steve Frye MD Anesthesia:?MAC Consent: Indications for the procedure and potential complications of bleeding, perforation, reaction to medications and missed diagnosis were discussed with the patient and informed consent was obtained. Instrument: Olympus PCF H 190 L variable stiffness pediatric colonoscope Monitoring: Vital signs and clinical assessment, intermittent blood pressure monitoring, continuous EKG monitoring, Pulse oximetry and Carbon Dioxide monitoring were done throughout the procedure. Please see anesthesia flowsheet. Colon withdrawl time was 23 minutes. Procedure: The patient was placed in the left lateral decubitis position and pre-procedure medications were administered. After a digital rectal examination of the ano-rectum, the video colonoscope was inserted into the rectum and advanced through the colon to the cecum. The colonoscope was slowly withdrawn in a retrograde panoramic fashion and the colon mucosa was carefully examined including a retroflexed view of the rectum. Findings and interventions are described below. Procedure Difficulty: without difficulty, there was some spasm in the colon Findings: Terminal Ileum: Not evaluated Cecum: A 7-8 mm sessile polyp - removed with a cold snare Ascending Colon: A 4-5 mm sessile polyp - removed with a cold biopsy Transverse Colon: Normal Descending Colon: Moderate diverticulosis Sigmoid Colon: Severe diverticulosis with luminal narrowing Rectum: Normal Ano-rectum: Small internal hemorrhoids Colon preparation: Good after copious irrigation. [place] Bowel Preparation Scale Right colon; 2 Transverse colon: 2 Left colon; 2 (0 = Unprepared colon segment with mucosa not seen due to solid stool that cannot be cleared. 1 = Portion of mucosa of the colon segment seen, but other areas of the colon segment not well seen due to staining, residual stool and/or opaque liquid. 2 = Minor amount of residual staining, small fragments of stool and/or opaque liquid, but mucosa of colon segment seen well. 3 = Entire mucosa of colon segment seen well with no residual staining, small fragments of stool or opaque liquid) Impression and Post Procedure Diagnosis: Colonoscopy Findings: Two small polyps were removed Moderate to severe diverticulosis seen in the left colon Small hemorrhoids on retroflexed exam. Plan: I will send a letter with pathology results Repeat Colonoscopy in 5 years if polyps are adenomatous and 10 year if polyps are hyperplastic. Above findings were reviewed with the patient and relevant handouts were given and the discharge area.
[2024-01-14 10:23] VITALS: BP 137/63; PULSE 75; RESP 16; TEMP 37.1; O2SAT 100
[2024-01-14 10:38] VITALS: BP 163/68; PULSE 68; RESP 16; TEMP 36.4; O2SAT 99
== END 2024-01-14 11:10 | disposition home or self-care (01) ==
PROVIDERS: PCP Nurse Practitioner Family; Visit Provider Internal Medicine Gastroenterology
PROC: 0DJD8ZZ Inspection of Lower Intestinal Tract, Via Natural or Artificial Opening Endoscopic (ICD-10-PCS; CPT 45378; principal; 2024-01-14 09:40)
DX: Z12.11 Encounter for screening for malignant neoplasm of colon (principal); Z86.010 Personal history of colon polyps; Z80.0 Family history of malignant neoplasm of digestive organs; D12.0 Benign neoplasm of cecum; K63.5 Polyp of colon; K57.30 Diverticulosis of large intestine without perforation or abscess without bleeding; K64.8 Other hemorrhoids; I10 Essential (primary) hypertension; E78.00 Pure hypercholesterolemia, unspecified; I73.9 Peripheral vascular disease, unspecified; F41.9 Anxiety disorder, unspecified; E55.9 Vitamin D deficiency, unspecified; Z79.899 Other long term (current) drug therapy; Z98.890 Other specified postprocedural states; Z87.891 Personal history of nicotine dependence
CPT/HCPCS: 45385; 45380; 88305; J2704

== ENCOUNTER → 2024-01-14 07:31 | Outpatient (BNV) | payer OTHER, SELFPAY | PROVIDERS: PCP Nurse Practitioner Family; Visit Provider Internal Medicine Gastroenterology | DX: Z12.11 Encounter for screening for malignant neoplasm of colon (principal); Z86.010 Personal history of colon polyps; Z80.0 Family history of malignant neoplasm of digestive organs; D12.0 Benign neoplasm of cecum; K63.5 Polyp of colon; K57.30 Diverticulosis of large intestine without perforation or abscess without bleeding; K64.8 Other hemorrhoids | CPT/HCPCS: 45380; 45385 ==

== ENCOUNTER 2024-02-02 07:57 | Outpatient (AMB) | payer OTHER, SELFPAY ==
[2024-02-02 08:03] VITALS: BP 126/64; PULSE 78; O2SAT 99; BMI 30.8
--- NOTE | 2024-02-02 08:03 | A.OFFPC_ITS ---
Vital Signs 3 02/02/24 08:03 Height 5 ft 5 in Weight 185 lb BMI 30.8 BP 126/64 Blood Pressure Location Lt brachial Position Sitting Pulse 78 Pulse Source Pulse Oximeter Pulse Oximetry (%) 99 Oxygen Delivery Method Room Air Intake Visit Reasons: ? LUMP Allergies No Known Allergies Allergy (Verified 02/02/24 08:06) Medication List - Last Reconciled 02/02/24 by BRANDYN Boyce atorvastatin 40 mg PO DAILY cholecalciferol (vitamin D3) 50 mcg PO DAILY lisinopril 40 mg PO DAILY 90 days mecobalamin (vitamin B12) 1,000 mcg sublingual BEDTIME multivitamin 1 tab PO DAILY triamcinolone acetonide 0.1% 1 appl topical BID PRN venlafaxine ER 75 mg PO BEDTIME venlafaxine ER 37.5 mg PO BEDTIME zolpidem 5 mg PO BEDTIME PRN Tobacco use date assessed: 06/08/23 Dental Screening Dental Screen Date: 09/28/23 HPI HPI Comments 2 History of Present Illness0 Details 68-year-old female with anxiety, vitami n-D deficiency, hyperlipidemia, hypertension, insomnia, rosacea, former smoker, urinary incontinence, B12 deficiency, sensorineural hearing loss bilat, diverticulosis 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 States she is currently in PT for back pain. Therapist noted this lump. She has felt this prior. It has been there for some time. It is not painful. Unsure if it's changed. mentions: Bruising to RLE, saw Derm yesterday, told Minocycline (used for rosacea) was causing this; advised to stop. [facility] Medical History (Updated 02/02/24 @ 09:25 by BRANDYN Boyce) PVD (peripheral vascular disease) EPIFANIO (generalized anxiety disorder) Hypercholesterolemia Essential hypertension COVID Encounter to establish care Surgical History History of total knee replacement (TKR) History of left hip replacement History of dental surgery History of back surgery History of hip replacement, total Social History Housing: House Alcohol intake: current Alcohol intake frequency: 0-2 drinks per day Alcohol type: wine Patient Tobacco Use Status: Former Tobacco user e-Cigarette/Vaping Use: Never Used Second Hand Smoke Exposure: No service: No Current occupational status: employed 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 Andrea Jerry, Aliza Banegas, Sarthak Campbell and colleagues, with an educational gucci from [employer]. Review of Systems Const All systems reviewed & are unremarkable except as noted in HPI and below Physical exam (Primary Care) Vital Signs: Last Vital Signs Pulse 78 02/02/24 08:03 BP 126/64 02/02/24 08:03 Pulse Ox 99 02/02/24 08:03 Oxygen Delivery Method Room Air 02/02/24 08:03 Tobacco/Smoking Status: Tobacco use Status Tobacco use date assessed 06/08/23 02/02/24 08:06 Patient Tobacco Use Status Former Tobacco user 02/02/24 08:06 e-Cigarette/Vaping Use Never Used 02/02/24 08:06 Thrive Assessment: Date of Thrive Assessment Date Thrive assessed 04/29/23 02/02/24 08:06 Back/Spine/Pelvis Back/spine/pelvis image: 2 1. Round, mobile, nontender mass about the size of a golf ball. Overlying skin intact. 2. oval mobile mass, nontender, overlying skin intact and clear Assessment and Plan Assessment & Plan (1) Mass of buttock: Comment: bilat, R>L Plan: check US imaging & fu with results. Code(s): R22.2 - Localized swelling, mass and lump, trunk Plan Total time spent caring for the patient today was 30 minutes. This includes time spent before the visit reviewing the chart, time spent during the visit, and time spent after the visit on documentation This note is constructed using voice recognition software. While every effort has been made to ensure accuracy in compliance professional, still errors may have been included Sometimes, these errors may affect the content or meaning of the given sentence . Orders: Orders 2 US soft tiss head and/or neck Today R22.2 - Localized swelling, mass and lump, trunk Coding Level of Care Code Est Pt Level 4 (81872) Diagnoses Mass of buttock R22.2
== END 2024-02-02 08:19 | disposition home or self-care (01) ==
PROVIDERS: PCP Nurse Practitioner Family; Visit Provider Nurse Practitioner Family
DX: R22.2 Localized swelling, mass and lump, trunk (principal)
CPT/HCPCS: 99214

== ENCOUNTER 2024-02-25 09:43 | Outpatient (AMB) | payer OTHER, SELFPAY ==
[2024-02-25 09:54] VITALS: BP 128/74; PULSE 87; RESP 13; TEMP 36.6; O2SAT 97; BMI 31.2
--- NOTE | 2024-02-25 09:54 | MHC.PC.OV ---
Vital Signs 02/25/24 09:54 Height 5 ft 5 in Weight 187 lb 8 oz BMI 31.2 BP 128/74 Blood Pressure Location Rt brachial Position Sitting Respiration 13 Pulse 87 Pulse Source Pulse Oximeter Temp 97.8 F Temp Source Temporal Artery Scan Pulse Oximetry (%) 97 Oxygen Delivery Method Room Air Intake Visit Reasons: ozempic disc, bruising rt ankle and below knee Ortho Nurse Required: No Accompanied by: Self / Same As Patient Allergies No Known Allergies Allergy (Verified 02/25/24 09:59) Tobacco use date assessed: 02/25/24 Fall risk assessment: No Falls in past year Last assessed Fall Risk: 02/25/24 Dental Screening Dental Screen Date: 02/25/24 Did you have a dental visit in the last 12 months?: Yes Did you have a dental problem in the last 6 months where you did not have access to dental care?: No Was dental information given to patient?: Patient has dentist HPI HPI Comments History of Present Illness Details HERE TODAY TO FOLLOW UP ON DISCOLORATION OF RIGHT ANTERIOR LOWER EXTREMITY. IT STARTED AFTER USING A TOPICAL CREAM PRESCRIBED BY DERMATOLOGY. SHE WAS ADVISED TO STOP THIS. SHE DOES ADMIT THAT THE DISCOLORATION IS IMPROVED HOWEVER IT REMAINS AND SHE IS WORRIED BECAUSE SHE IS FLYING ON A PLANE TO [place] NEXT WEEK. SHE DENIES ANY VASCULAR SYMPTOMS. ALSO WONDERS ABOUT MEDICATION TO HELP HER LOSE WEIGHT. REPORTS THAT HER JOINTS ACHE AND THEREFORE SHE CAN NOT BE PHYSICALLY ACTIVE SHE WANTS TO. SHE ALSO STATES THAT HER JOINTS ACHE DUE TO EXCESSIVE WEIGHT. SHE DOES HER BEST TO WATCH HER DIET. [facility] Medical History (Updated 02/25/24 @ 16:[address] [facility]) PVD (peripheral vascular disease) EPIFANIO (generalized anxiety disorder) Hypercholesterolemia Essential hypertension COVID Encounter to establish care Surgical History History of total knee replacement (TKR) History of left hip replacement History of dental surgery History of back surgery History of hip replacement, total Social History Household Members: Spouse and Family Housing: House Are you a primary physician primary care sports medicine to a significant other at home: No Do you presently have visiting nurse or other home services: No Alcohol intake: current Alcohol intake frequency: 0-2 drinks per day Alcohol type: wine Patient Tobacco Use Status: Former Tobacco user e-Cigarette/Vaping Use: Never Used Second Hand Smoke Exposure: No service: No Current occupational status: employed 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 Andrea Jerry, Aliza Banegas, Sarthak Campbell and colleagues, with an educational gucci from [employer]. Review of Systems Const All systems reviewed & are unremarkable except as noted in HPI and below Physical exam (Primary Care) Vital Signs: Last Vital Signs Temp 97.8 F 02/25/24 09:54 Pulse 87 02/25/24 09:54 Resp 13 02/25/24 09:54 BP 128/74 02/25/24 09:54 Pulse Ox 97 02/25/24 09:54 Oxygen Delivery Method Room Air 02/25/24 09:54 BMI result Body Mass Index 31.2 BMI Assessment/Plan discussion: High BMI High, discussed plan: weight reduction Tobacco/Smoking Status: Tobacco use Status Tobacco use date assessed 02/25/24 02/25/24 10:03 Patient Tobacco Use Status Former Tobacco user 02/25/24 10:03 e-Cigarette/Vaping Use Never Used 02/25/24 10:03 Thrive Assessment: Date of Thrive Assessment Date Thrive assessed 04/29/23 02/25/24 10:03 Const Other: AWAKE ALERT ORIENTED NEUROVASCULARLY INTACT ANTERIOR RIGHT LOWER EXTREMITY WITH A VERY FAINT DISCOLORATION FROM HER ANKLE TO MID SOLANO. POSITIVE PEDAL PULSES POSITIVE CMS Assessment and Plan Assessment & Plan (1) Dusky discoloration of skin: Comment: WHICH WAS CAUSED FROM A TOPICAL CREAM. IT IS IMPROVING HOWEVER GIVEN SHE IS GOING TO GET ON AN AIRPLANE AN ULTRASOUND TO RULE OUT DVT WAS PERFORMED. THE ULTRASOUND WAS NEGATIVE FOR DVT. REASSURANCE AND EDUCATION WAS PROVIDED. NO FURTHER TREATMENT IS NECESSARY. Code(s): R23.8 - Other skin changes (2) Right leg swelling: Code(s): M79.89 - Other specified soft tissue disorders (3) Class 1 obesity with alveolar hypoventilation, serious comorbidity, and body mass index (BMI) of 31.0 to 31.9 in adult: Comment: BMI > 31 WITH HYPERTENSION AND HYPERLIPIDEMIA. START RYBELSUS 4 MG P.O. DAILY ADVISED TO TAKE WITH A SIP OF WATER 1ST THING IN THE MORNING. NO FOOD OR DRINK FOR 30 MINUTES AFTER TAKING MEDICATION. TITRATE TO EFFECT. PATIENT'S HISTORY WAS REVIEWED PRIOR TO STARTING A GLP 1. PATIENT DOES NOT HAVE MEDULLARY THYROID CARCINOMA, DOES NOT HAVE A FAMILY HISTORY OR PERSONAL HISTORY OF MULTIPLE ENDOCRINE NEOPLASIA SYNDROME TYPE 2. PATIENT IS AWARE THERE IS A DOSE RELATED AND DURATION DEPENDENT INCREASE IN THYROID C-CELL TUMOR INCIDENCE BASED ON RODENTS, BUT HUMAN RELEVANCE IS UNKNOWN. PATIENT WAS ADVISED OF POTENTIAL MEDULLARY THYROID CARCINOMA RISK AND THYROID TUMOR SYMPTOMS SUCH NECK MASS, DYSPHAGIA, DYSPNEA, PERSISTENT HOARSENESS. PATIENT CONSENTS TO KNOWLEDGE OF THE ABOVE AND WISHES TO PROCEED. Code(s): E66.2 - Morbid (severe) obesity with alveolar hypoventilation; Z68.31 - Body mass index [BMI] 31.0-31.9, adult Plan THIS NOTE IS CONSTRUCTED USING VOICE RECOGNITION SOFTWARE. WHILE EVERY EFFORT HAS BEEN MADE TO ENSURE ACCURACY IN FIELD ADJUSTER, STILL ERRORS MAY HAVE BEEN INCLUDED SOMETIMES, THESE ERRORS MAY AFFECT THE CONTENT OR MEANING OF THE GIVEN SENTENCE . TOTAL TIME SPENT CARING FOR THE PATIENT TODAY WAS 45 MINUTES. THIS INCLUDES TIME SPENT BEFORE THE VISIT REVIEWING THE CHART, TIME SPENT DURING THE VISIT, AND TIME SPENT AFTER THE VISIT ON DOCUMENTATION Orders: Orders US venous duplex LE RT Today M79.89 - Other specified soft tissue disorders, R23.8 - Other skin changes Medications: New semaglutide (Rybelsus) 3 mg PO DAILY 90 tabs 0RF 90 days Patient Instructions: RETURN TO OFFICE SCHEDULED TO FOLLOW UP ON ROUTINE CONDITIONS WELL WEIGHT LOSS USING RYBELSUS, SOONER IF NEEDED Coding Level of Care Code Est Pt Level 4 (49300) Complex EM visit Add On G2211 Diagnoses Dusky discoloration of skin R23.8 Right leg swelling M79.89 Class 1 obesity with alveolar hypoventilation, serious comorbidity, and body mass index (BMI) of 31.0 to 31.9 in adult E66.2; Z68.31
== END 2024-02-25 10:24 | disposition home or self-care (01) ==
PROVIDERS: PCP Nurse Practitioner Family; Visit Provider Nurse Practitioner Family
DX: R23.8 Other skin changes (principal); M79.89 Other specified soft tissue disorders; E66.2 Morbid (severe) obesity with alveolar hypoventilation; Z68.31 Body mass index [BMI] 31.0-31.9, adult
CPT/HCPCS: 99214; G2211

== ENCOUNTER 2024-02-25 13:21 | Outpatient (REF) | payer OTHER, SELFPAY ==
--- NOTE | ~2024-02-25 | US_ITS ---
EXAMINATION: US VENOUS ULTRASOUND WITH DOPPLER LOWER EXTREMITY, RIGHT CLINICAL INFORMATION: Edema. COMPARISON: None available. TECHNIQUE: Ultrasound of the deep veins is performed from the hip to the calf with compression sonography and color and pulse Doppler assessment. Spectral analysis with color-flow imaging is performed. FINDINGS: There is normal venous compression and respiratory variation and augmented flow. The visualized common femoral vein, superficial femoral vein, profunda femoral vein, popliteal vein, and the trifurcation region shows no evidence of deep venous thrombosis. There is no significant popliteal fossa cyst. If the patient's symptoms persist, followup ultrasound in 5 days 7 days might be of value to exclude proximal propagation from a non-visualized calf vein. US/US venous duplex LE RT IMPRESSION: No DVT demonstrated in the right lower extremity.
== END 2024-02-25 13:22 | disposition home or self-care (01) ==
LOC: HO.US 13:21
PROVIDERS: PCP Nurse Practitioner Family; Visit Provider Nurse Practitioner Family
DX: R23.8 Other skin changes (principal); M79.89 Other specified soft tissue disorders
CPT/HCPCS: 93971

== ENCOUNTER 2024-03-21 08:35 | Outpatient (AMB) | payer OTHER, SELFPAY ==
--- NOTE | 2024-03-21 08:37 | AM.OFFWIN_ITS ---
Intake Vital Signs 03/21/24 08:50 Height 5 ft 5 in Weight 186 lb 6 oz BMI 31.0 BP 98/64 Blood Pressure Location Rt brachial Position Sitting Respiration 14 Pulse 87 Pulse Source Pulse Oximeter Temp 98 F Temp Source Oral Pulse Oximetry (%) 96 Oxygen Delivery Method Room Air Intake Visit Reasons: congestion Intake Note: Congestion, left ear pain, throat scratchy Patient Tobacco Use Status: Former Tobacco user Allergies No Known Allergies Allergy (Verified 03/21/24 09:05) Medication List - Last Reconciled 03/21/24 by BRANDYN Boyce atorvastatin 40 mg PO DAILY cholecalciferol (vitamin D3) 50 mcg PO DAILY ivermectin 5 tabs every month lisinopril 40 mg PO DAILY 90 days mecobalamin (vitamin B12) 1,000 mcg sublingual BEDTIME multivitamin 1 tab PO DAILY ofloxacin 0.3% drps otic (ears) venlafaxine ER 75 mg PO BEDTIME venlafaxine ER 37.5 mg PO BEDTIME zolpidem 5 mg PO BEDTIME PRN Do you need a note to return to daycare/school/sports/work: No HPI HPI Comments History of Present Illness Details Here today with c/o URI sx: 03/04/24 stuffy nose and mild cold like s x while away. Traveled home via plane . now having left ear feeling blocked, cough, sore throat and head feels blocked Went Wednesday to walk in - told ear infection in L ear and given drops but not getting any better Also taking antihistamins BID which does not seem to be helping Denies fever, chills. Other notes Rybelsus denied by insurance wants something to aide in wt loss Micah trial wellbutrin xl 150mg po QD [facility] Medical History (Updated 03/21/24 @ 09:18 by BRANDYN Boyce) PVD (peripheral vascular disease) EPIFANIO (generalized anxiety disorder) Hypercholesterolemia Essential hypertension COVID Encounter to establish care Surgical History History of total knee replacement (TKR) History of left hip replacement History of dental surgery History of back surgery History of hip replacement, total Social History Household Members: Spouse and Family Both parents involved: No Caregiver staying overnight: No Housing: House Are you a primary care assistant to a significant other at home: No Do you presently have visiting nurse or other home services: No 75 years or older and lives alone: No Alcohol intake: current Alcohol intake frequency: 0-2 drinks per day Alcohol type: wine Patient Tobacco Use Status: Former Tobacco user e-Cigarette/Vaping Use: Never Used Second Hand Smoke Exposure: No service: No Current occupational status: employed 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 Cognitive needs: No Hearing needs: No Vision needs: Yes (glasses) Review of Systems Const All systems reviewed & are unremarkable except as noted in HPI and below Physical Exam Vital Signs: Last Vital Signs Temp 98 F 03/21/24 08:50 Pulse 87 03/21/24 08:50 Resp 14 03/21/24 08:50 BP 98/64 03/21/24 08:50 Pulse Ox 96 03/21/24 08:50 Oxygen Delivery Method Room Air 03/21/24 08:50 BMI result Body Mass Index 31.0 HEENT Other: Awake alert NAD Sclera and conjunctiva clear bilat Nares patent, turbinates within normal limits, no sinus tenderness with palpation bilat TM intact with fluid behind TM on the right, erythematous, bulging with loss of landmarks on the left MMM, pharynx WNL RRR LS CTAB Assessment & Plan Assessment & Plan (1) Otitis media: Code(s): H66.90 - Otitis media, unspecified, unspecified ear Qualifiers: Otitis media type: suppurative Chronicity: acute Laterality: left Spontaneous tympanic membrane rupture: without spontaneous rupture Recurrence: non-recurrent Qualified Code(s): H66.002 - Acute suppurative otitis media without spontaneous rupture of ear drum, left ear (2) Class 1 obesity with alveolar hypoventilation, serious comorbidity, and body mass index (BMI) of 31.0 to 31.9 in adult: Comment: BMI > 31 WITH HYPERTENSION AND HYPERLIPIDEMIA. Code(s): E66.2 - Morbid (severe) obesity with alveolar hypoventilation; Z68.31 - Body mass index [BMI] 31.0-31.9, adult Plan This note is constructed using voice recognition software. While every effort has been made to ensure accuracy in terminal makeup operator, still errors may have been included Sometimes, these errors may affect the content or meaning of the given sentence . Total time spent caring for the patient today was 30 minutes. This includes time spent before the visit reviewing the chart, time spent during the visit, and time spent after the visit on documentation Medications: New bupropion HCl XL (Wellbutrin XL) 150 mg PO QAM 90 tabs 0RF amoxicillin-pot clavulanate 875-125 mg 1 tab PO BID 7 days 14 tabs 0RF Patient Instructions: Use a nasal steroid spray (Flonase or Nasonex) NO nasal decongestant (Afrin or Sudafed or Vicks) Start Wellbutrin for wt loss when you are feeling better STOP taking ear drops, not needed Ok to cont antihistamines twice per day Coding Level of Care Code Est Pt Level 4 (44054) Diagnoses Non-recurrent acute suppurative otitis media of left ear without spontaneous rupture of tympanic membrane H66.002 Otitis media type: suppurative Chronicity: acute Laterality: left Spontaneous tympanic membrane rupture: without spontaneous rupture Recurrence: non-recurrent Class 1 obesity with alveolar hypoventilation, serious comorbidity, and body mass index (BMI) of 31.0 to 31.9 in adult E66.2; Z68.31
[2024-03-21 08:50] VITALS: BP 98/64; PULSE 87; RESP 14; TEMP 36.6; O2SAT 96; BMI 31.0
== END 2024-03-21 11:58 | disposition home or self-care (01) ==
PROVIDERS: PCP Nurse Practitioner Family; Visit Provider Nurse Practitioner Family
DX: H66.002 Acute suppurative otitis media without spontaneous rupture of ear drum, left ear (principal); E66.2 Morbid (severe) obesity with alveolar hypoventilation; Z68.31 Body mass index [BMI] 31.0-31.9, adult
CPT/HCPCS: 99214

== ENCOUNTER 2024-03-21 15:12 | Outpatient (REF) | payer OTHER, SELFPAY ==
--- NOTE | ~2024-03-21 | US_ITS ---
EXAMINATION: US PELVIS, LIMITED/FOLLOW UP CLINICAL INFORMATION: Soft tissue mass bilateral buttocks. COMPARISON: None available. TECHNIQUE: High frequency linear ultrasound transducer was used to examine the area of clinical concern. FINDINGS: There is a focal hypoechoic structure seen in the right upper buttock which is avascular measuring 1.0 x 0.3 x 0.6 cm. It has fairly similar echogenic characteristics when comparison is made to the surrounding fat. No abscess or fluid collection is seen. US/US pelvic limited IMPRESSION: Probable small lipoma.
== END 2024-03-21 15:13 | disposition home or self-care (01) ==
LOC: HO.US 15:12
PROVIDERS: PCP Nurse Practitioner Family; Visit Provider Nurse Practitioner Family
DX: R22.2 Localized swelling, mass and lump, trunk (principal)
CPT/HCPCS: 76857

== ENCOUNTER 2024-03-31 08:56 | Outpatient (AMB) | payer OTHER, SELFPAY ==
--- OUTSIDE RECORDS SUMMARY | 2024-03-31 08:57 | XMS_ITS | Continuity of Care Document ---
Author Organization [facility] Address [address] [place] [address]- Care Team Providers Care Consulting Hr Professional Name Role Phone Anthony VALENCIA, Brenna Berrios Primary Care Physician [place] [facility] [place] 04/15/23 - 05/15/[address] [id number] Attending Physician: Cipriano Burns Admitting Physician: Cipriano Burns Referring Physician: Admtr, Ar8 Allergies, Adverse Reactions, Alerts No Known Medication Allergies Immunizations Given and Recorded Vaccine Date Status Refusal Reason Influenza Vaccine (oldterm) 10/05/12 Given Medications acetaminophen 325 mg oral tablet 650 mg, By Mouth, Every 6 hours, May take OTC not to exceed 3000 mg/day, Refills 0, Maintenance, 01/30/22 8:50:00 EDT, Partial fill upon patient request if the prescription is for a schedule II opioid drug. Start Date: 01/30/22 Status: Ordered Aspirin Tablet 325 mg, By Mouth, 2 times a day, Refills 0, Maintenance, 01/30/22 8:50:00 EDT, Partial fill upon patient request if the prescription is for a schedule II opioid drug. Start Date: 01/30/22 Status: Ordered atorvastatin 40 mg oral tablet 1 tablet = 40 mg, By Mouth, Daily, NEEDS TO MAKE APPT FOR FURTHER REFILLS, # 30 tablet, 0 Refills, Maintenance, 12/19/13 10:19:22, Tablet, 1 tablet By Mouth Daily,Instr:NEEDS TO MAKE APPT FOR FURTHERREFILLS Start Date: 12/19/13 Status: Ordered celecoxib 200 mg oral capsule 1 capsule = 200 mg, By Mouth, Daily in AM, 0 Refills, Maintenance, 01/30/22 8:50:00 EDT, Capsule, Partial fill upon patient request if the prescription is for a schedule II opioid drug. Start Date: 01/30/22 Status: Ordered Colace Capsule 100 mg, 1, capsule, By Mouth, 2 times a day, Hold for loose stools, Refills 0, Maintenance, 01/30/22 8:50:00 EDT, Partial fill upon patient request if the prescription is for a schedule II opioid drug. Start Date: 01/30/22 Status: Ordered lisinopril 10 mg oral tablet 30 mg, 3, tablet, By Mouth, Daily, # 90 tablet, Refills 0, Maintenance, 01/29/22 9:29:00 EDT, Partial fill upon patient request if the prescription is for a schedule II opioid drug. Start Date: 01/29/22 Status: Ordered Maalox Plus Liquid 30 mL, By Mouth, Every 4 hours, PRN Other, Heartburn, 0 Refills, Maintenance, 01/30/22 8:50:00 EDT,Suspension, Partial fill upon patient request if the prescription is for a schedule II opioid drug. Start Date: 01/30/22 Status: Ordered minocycline 100 mg oral capsule 1 capsule = 100 mg, By Mouth, 2 times a day, # 30 capsule, 0 Refills, Maintenance, 01/16/22 9:16:00EDT, Capsule, Partial fill upon patient request if the prescription is for a schedule II opioid drug. Start Date: 01/16/22 Status: Ordered MiraLax Powder 1 pack/packet = 17 Gm, By Mouth, Daily, PRN Constipation, 0 Refills, Maintenance, 01/30/22 8:51:00 EDT, Powder, Partial fill upon patient request if the prescription is for a schedule II opioid drug. Start Date: 01/30/22 Status: Ordered MOM Liquid 30 mL, By Mouth, Daily, PRN Constipation, 0 Refills, Maintenance, 01/30/22 8:51:00 EDT, Suspension,Partial fill upon patient request if the prescription is for a schedule II opioid drug. Start Date: 01/30/22 Status: Ordered pantoprazole 40 mg oral delayed release tablet = 40 mg, By Mouth, Daily in AM, 0 Refills, Maintenance, 01/30/22 8:51:00 EDT, EC Tablet Start Date: 01/30/22 Status: Ordered senna 187 mg oral tablet 1 tablet = 8.6 mg, By Mouth, Daily at bedtime, PRN as needed for constipation, 0 Refills, Maintenance, 01/30/22 8:51:00 EDT, Tablet, Partial fill upon patient request if the prescription is for a schedule II opioid drug. Start Date: 01/30/22 Status: Ordered zolpidem 5 mg oral tablet 1 tablet = 5 mg, By Mouth, Daily at bedtime, 0 Refills, Maintenance, 04/03/16 12:41:04 Start Date: 04/03/16 Status: Ordered Problem List Condition Confirmation Course Effective Dates Status Health St atus Informant Adjustment insomnia Confirmed Active Anxiety Confirmed Active Arthritis Confirmed Active Dyslipidemia Confirmed Active Murmur Confirmed Active Hypertension Confirmed Active Depression with anxiety Confirmed Active Obese class I Confirmed Active Social History Social History Type Response Smoking Status Former smoker; Type: Cigarettes entered on: 08/08/15 Sex Patient Care team information Care Team Personnel Name: Omayra Rhodes RN Position: [facility] RN Member Role: Primary Care Nurse Name: Azalia Mann RN Position: S RN Member Role: Primary Care Nurse Name: Brenna Cruz NP Position: [facility] Outreach Member Role: PCP Address: Address: [address] [place] [address]- Name: Radha Renteria RN Position: [facility] RN Member Role: Primary Care Nurse Care Team Related Persons Name: STACIA CABELLO Address: home [address] [place] [address]
--- OUTSIDE RECORDS SUMMARY | 2024-03-31 08:57 | XMS_ITS | Continuity of Care Document ---
Author Organization [facility] Address [address] [place] [address]- Care Team Providers Care Banking Manager Name Role Phone Anthony VALENCIA, Brenna Berrios Primary Care Physician [place] [facility] [place] 12/11/22 - 01/15/[address] [address] Attending Physician: Brenna Cruz NP Admitting Physician: Anthony VALENCIA, Brenna Berrios Referring Physician: Raul Arevalo MD Allergies, Adverse Reactions, Alerts No Known Medication [...] Team Personnel Name: Omayra Rhodes RN Position: [facility] RN Member Role: Primary Care Nurse Name: Azalia Mann RN Position: [facility] RN Member Role: Primary Care Nurse Name: Brenna Cruz NP Position: [facility] Outreach Member Role: PCP Address: Address: [address] [place] [address]- Name: Radha Renteria RN Position: [facility] RN Member Role: Primary Care Nurse Care Team Related Persons Name: STACIA CABELLO Address: home [address] [place] [address]
--- OUTSIDE RECORDS SUMMARY | 2024-03-31 08:57 | XMS_ITS | Continuity of Care Document ---
Author Organization [facility] Address [address] [place] [address]- Care Team Providers Care Site Engineer Name Role Phone Anthony VALENCIA, Brenna Berrios Primary Care Physician [place] [facility] [place] 03/25/[address] [address] Attending Physician: Cipriano Burns Admitting Physician: Cipriano [...] Team Personnel Name: Omayra Rhodes RN Position: [facility] RN Member Role: Primary Care Nurse Name: Azalia Mann RN Position: S RN Member Role: Primary Care Nurse Name: Brenna Cruz NP Position: [facility] Outreach Member Role: PCP Address: Address: [address] [place] [address]- Name: Radha Renteria RN Position: [facility] RN Member Role: Primary Care Nurse Care Team Related Persons Name: STACIA CABELLO Address: home [address] [place] [id number]
--- OUTSIDE RECORDS SUMMARY | 2024-03-31 08:57 | XMS_ITS | Continuity of Care Document ---
Author Organization [facility] Address [address] [place] [address]- Care Team Providers Care Packing Room Inspector Name Role Phone Anthony VALENCIA, Brenna Berrios Primary Care Physician [place] [facility] [place] 07/02/22 - 08/01/[address] [address] Attending Physician: Cipriano Burns Admitting Physician: Cipriano Burns Referring Physician: AdmtrCipriano Allergies, Adverse Reactions, Alerts No Known Medication [...] Confirmation Course Effective Dates Status Health St at Informant Adjustment insomnia Confirmed Active Anxiety Confirmed Active Arthritis Confirmed Active Dyslipidemia Confirmed Active Murmur Confirmed Active Hypertension Confirmed Active Depression with anxiety Confirmed Active Obese class I Confirmed Active Social History Social History Type Response Smoking Status Former smoker; Type: Cigarettes entered on: 08/08/15 Sex Patient Care team information Personnel Name: Brenna Cruz NP Address: Address: [address] [place] [address]
--- OUTSIDE RECORDS SUMMARY | 2024-03-31 08:57 | XMS_ITS | Continuity of Care Document ---
Author Organization [facility] Address [address] [place] [address]- Care Team Providers Care Veneer Stock Grader Name Role Phone Anthony VALENCIA, Brenna Berrios Primary Care Physician Encounter [facility] [place] Date(s): 01/16/22 - 02/15/22 [facility] [address] [place], [place] [address] Attending Physician: Cipriano Burns Admitting Physician: Cipriano Burns Referring Physician: [id number] Allergies, Adverse Reactions, Alerts No Known Medication [...] Date: 04/03/16 Status: Ordered Problem List Condition Effective Dates Status Health Status Inform ant Adjustment insomnia(Confirmed) Active Anxiety(Confirmed) Active Arthritis(Confirmed) Active Dyslipidemia(Confirmed) Active Murmur(Confirmed) Active Hypertension(Confirmed) Active Depression with anxiety(Confirmed) Active Obese class I(Confirmed) Active Social History Social History Type Response Smoking Status Former smoker; Type: Cigarettes entered on: 08/08/15 Sex
--- OUTSIDE RECORDS SUMMARY | 2024-03-31 08:57 | XMS_ITS | Continuity of Care Document ---
Author Organization [facility] Address [address] [place] [address]- Care Team Providers Care Janitorial Tech Name Role Phone Anthony VALENCIA, Brenna Berrios Primary Care Physician [place] [facility] [place] 10/27/22 - 11/26/22 [facility] [address] [place], [place] [address] Attending Physician: Cipriano Burns Admitting Physician: [...] Care team information Care Team Personnel Name: Azalia Mann RN Position: [facility] RN Member Role: Primary Care Nurse Name: Brenna Cruz NP Position: [facility] Outreach Member Role: PCP Address: Address: [address] [place] [address]- Care Team Related Persons Name: STACIA CABELLO Address: home [address] [place] [phone]
--- OUTSIDE RECORDS SUMMARY | 2024-03-31 08:57 | XMS_ITS | Continuity of Care Document ---
Author Organization [facility] Address [address] [place] [address]- Care Team Providers Care Helper Electrical Name Role Phone Anthony VALENCIA, Brenna Berrios Primary Care Physician [id number] Date(s): 12/21/22 - 01/23/[address] [address] Attending Physician: Brenna Cruz NP Admitting Physician: [...] Team Personnel Name: Omayra Rhodes RN Position: S RN Member Role: Primary Care Nurse Name: Azalia Mann RN Position: S RN Member Role: Primary Care Nurse Name: Brenna Cruz NP Position: [facility] Outreach Member Role: PCP Address: Address: [address] [place] [address]- Name: Radha Renteria RN Position: S RN Member Role: Primary Care Nurse Care Team Related Persons Name: STACIA CABELLO Address: home [address] [place] [address]
--- OUTSIDE RECORDS SUMMARY | 2024-03-31 08:57 | XMS_ITS | Continuity of Care Document ---
Author Organization [facility] ter Address [address] [place] [address]- Care Team Providers Care Seedling Puller Name Role Phone Anthony VALENCIA, Brenna Berrios Primary Care Physician Encounter [facility] [place] Date(s): 01/29/22 - 02/28/[address] [address] Attending Physician: Not on Staff, Attending MD Admitting Physician: Not on Staff, Admitting MD Referring Physician: Not on Staff, Referring MD Allergies, Adverse Reactions, Alerts No Known [...]
--- OUTSIDE RECORDS SUMMARY | 2024-03-31 08:58 | XMS_ITS | Continuity of Care Document ---
Author Organization [facility] ter Address [address] [place] [address]- Care Team Providers Care Pond Scaler Name Role Phone Anthony VALENCIA, Brenna Berrios Primary Care Physician [place] [facility] [place] - 01/30/[address] [address] Discharge Disposition: A-Transfer VNA/Home Health Attending Physician: Raul Arevalo MD Admitting Physician: Raul Arevalo MD Referring Physician: Raul Arevalo MD Allergies, Adverse [...] opioid drug. Start Date: 01/30/22 Status: Ordered Acetaminophen Tablet 650 mg, Tablet, By Mouth, 01/30/22 13:08:00 EDT Start Date: 01/30/22 Stop Date: 01/30/22 Status: Completed Aspirin Tablet 325 mg, By Mouth, 2 [...] opioid drug. Start Date: 01/30/22 Status: Ordered oxyCODONE 5 mg oral tablet See Instructions, PRN, Take 1-2 tablets every 4 hours as needed for moderate to severe pain., # 60 tablet, Refills 0, Tot. Refills 0, Acute 02/04/22 8:00:00 EDT, Pain , Moderate, 01/30/22 8:49:00 EDT, Instructions Replace Required Details, Route to Ph... Start Date: 01/30/22 Stop Date: 02/04/22 Status: Ordered OxyCODONE IR Tablet 10 mg, Tablet, By Mouth, Every 4 hours, PRN for Pain , Moderate, Routine, 01/29/22 13:10:00 EDT Start Date: 01/29/22 Stop Date: 01/30/22 Status: Discontinued pantoprazole 40 mg oral delayed release tablet [...] opioid drug. Start Date: 01/30/22 Status: Ordered traMADol 50 mg oral tablet See Instructions, PRN Pain , Mild, Take 1-2 tablets every 6 hours as needed for mild pain. not to exceed 400 mg/day, # 56 tablet, 0 Refills, Acute 02/06/22 8:00:00 EDT, 01/30/22 8:48:00 EDT, Tablet, [facility], Partial fill upon patien... Start Date: 01/30/22 Stop Date: 02/06/22 Status: Ordered zolpidem 5 mg oral tablet 1 tablet = 5 mg, By Mouth, Daily at bedtime, 0 Refills, Maintenance, 04/03/16 12:41:04 Start Date: 04/03/16 Status: Ordered Problem List Condition Effective Dates Status Health Status Inform ant Adjustment insomnia(Confirmed) Active Anxiety(Confirmed) Active Arthritis(Confirmed) Active Dyslipidemia(Confirmed) Active Murmur(Confirmed) Active Hypertension(Confirmed) Active Depression with anxiety(Confirmed) Active Obese class I(Confirmed) Active Results Radiology Reports * Exam Date Time Procedure Performing Provider Status 01/29/22 11:03 PM Pelvis 1 or 2 Views Rebecca Manning h (Verified) Notes: (Pelvis 1 or 2 Views) Reason For Exam: Postop Prosthesis;Postop Prosthesis RESULT: Pelvis 1 or 2 Views Pelvis 1 or 2 Views Reason: Postop Prosthesis; Clinical Question(s): Status of Hip Prosthesis; Special Instructions: LEFT Hip - Do today at 2200 COMPARISON: 03/26/2012 FINDINGS: Status post bilateral hip arthroplasty. No radiographic evidence of complication. Postsurgical findings noted around the left hip. IMPRESSION: See above. WSN: [id number] Ordering Physician: Laine Salinas Dictated By: Deejay Field MD Dictated Date/Time: 01/29/22 11:09 p Reviewed By: Deejay Field MD Signed By: Deejay Field MD Signed Date/Time: 01/29/22 11:09 pm Transcribed By: NINA Transcribed Date/Time: 01/29/22 11:08 pm * Exam Date Time Procedure Performing Provider Status 01/29/22 1:54 PM C-Arm < 1 Hour Stacy Cook; Christie th (Verified) Notes: (C-Arm < 1 Hour) Reason For Exam: lt total hip replacement RESULT: C-Arm < 1 Hour AP pelvis 18 intraprocedural fluoroscopic images performed portably in the operating room on January 29, 2022 at 1600 hours. Comparison films are from March 26, 2012. HISTORY: Left hip replacement. FINDINGS: Intraprocedural fluoroscopy was utilized. The technologist time was less than 1 hour. Thefluoroscopic time was 10 seconds. Intraprocedural imaging shows placement of a total hip arthroplasty on the left. Alignment is anatomic. IMPRESSION: Status post left hip replacement with anatomic alignment. Examination [id number]. Thank you for allowing me to participate in the care of this patient. WSN: [id number] Ordering Physician: Raul Arevalo Dictated By: Mak Pham MD Dictated Date/Time: 01/29/22 4:02 pm Reviewed By: Mak Pham MD Signed By: Mak Pham MD Signed Date/Time: 01/29/22 4:02 pm Transcribed By: NINA Transcribed Date/Time: 01/29/22 4:02 pm * Exam Date Time Procedure Performing Provider Status 01/29/22 1:54 PM Pelvis 1 or 2 Views Quintinhuang Kasey h; Nay (Verified) Notes: (Pelvis 1 or 2 Views) Reason For Exam: arthroplasty left hip total anterior RESULT: Pelvis 1 or 2 Views AP pelvis 18 intraprocedural fluoroscopic images performed portably in the operating room on January 29, 2022 at 1600 hours. Comparison films are from March 26, 2012. HISTORY: Left hip replacement. FINDINGS: Intraprocedural fluoroscopy was utilized. The technologist time was less than 1 hour. Thefluoroscopic time was 10 seconds. Intraprocedural imaging shows placement of a total hip arthroplasty on the left. Alignment is anatomic. IMPRESSION: Status post left hip replacement with anatomic alignment. Examination [id number]. Thank you for allowing me to participate in the care of this patient. WSN: [id number] Ordering Physician: Raul Arevalo Dictated By: Mak Pham MD Dictated Date/Time: 01/29/22 4:02 pm Reviewed By: Mak Pham MD Signed By: Mak Pham MD Signed Date/Time: 01/29/22 4:02 pm Transcribed By: NINA Transcribed Date/Time: 01/29/22 4:02 pm Vital Signs Most recent to oldest [Reference Range]: 1 2 3 Height 165 cm (01/30/22 10:48 AM) 165 cm (01/30/22 6:48 AM) 165 cm (01/30/22 3:52 AM) Weight 87.6 kg (01/29/22 11:23 AM) 87.6 kg (01/29/22 8:38 AM) Oxygen Saturation [94-100 %] 98 % (01/30/22 10:48 AM) 97 % (01/30/22 6:48 AM) 100 % (01/30/22 3:52 AM) Pulse Rate [55-90 bpm] 67 bpm (01/30/22 10:48 AM) 68 bpm (01/30/22 6:48 AM) 71 bpm (01/30/22 3:52 AM) Body Mass Index [18.5-24.99] 32.18 *>HHI* (01/29/22 11:23 AM) 32.18 *>HHI* (01/29/22 8:38 AM) Blood Pressure [90-138/55-84 mm Hg] 104/48mm Hg (01/30/22 10:48 AM) 105/47mm Hg (01/30/22 6:48 AM) 109/58mm Hg (01/30/22 3:52 AM) Respiratory Rate [16-30 br/min] 18 br/min (01/30/22 2:09 PM) 18 br/min (01/30/22 2:09 PM) 16 br/min (01/30/22 1:09 PM) Temperature [96.8-100.4 DegF] 98.2 DegF (01/30/22 10:48 AM) 97.8 DegF (01/30/22 6:48 AM) 98 DegF (01/30/22 3:52 AM) Liters per Minute 3 L/min (01/29/22 5:34 PM) 3 L/min (01/29/22 4:45 PM) 2 L/min (01/29/22 4:15 PM) Mode of Delivery (Oxygen) Room air (01/30/22 10:48 AM) Room air (01/30/22 6:48 AM) Room air (01/30/22 3:52 AM) Blood pressure sites Arm, left (01/30/22 10:48 AM) Arm, left (01/30/22 6:48 AM) Arm, left (01/30/22 3:52 AM) Temperature Route Oral (01/30/22 10:48 AM) Oral (01/30/22 6:48 AM) Oral (01/30/22 3:52 AM) Dry Weight 87.6 kg (01/29/22 8:38 AM) Social History Social History Type Response Smoking Status Former smoker; Type: Cigarettes entered on: 08/08/15 Sex
--- OUTSIDE RECORDS SUMMARY | 2024-03-31 08:58 | XMS_ITS | Continuity of Care Document ---
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 Start Date: 01/30/22 Status: Ordered ondansetron 4 mg oral tablet, disintegrating = 4 mg, By Mouth, Every 6 hours, PRN Nausea & Vomiting, for 7 days, # 28 tablet, 0 Refills, Acute 12/11/22 9:24:00 EST, 12/04/22 9:24:00 EST, Tablet, [facility], Partial fill upon patient request if the prescription is for a schedule II... Start Date: 12/04/22 Stop Date: 12/11/22 Status: Ordered oxyCODONE 5 mg oral tablet See Instructions, PRN, Take 1-2 tablets every 4 hours as needed for moderate to severe pain., # 60 tablet, Refills 0, Tot. Refills 0, Acute 12/09/22 8:00:00 EST, Pain , Moderate, 12/04/22 9:33:00 EST, Instructions Replace Required Details, Route to Ph... Start Date: 12/04/22 Stop Date: 12/09/22 Status: Ordered pantoprazole 40 mg oral delayed [...] opioid drug. Start Date: 01/30/22 Status: Ordered Toradol Inj 15 mg, Injection, IV Push Slowly, Once, Routine, 12/04/22 11:00:00 EST, Stop date 12/04/22 11:00:00EST Start Date: 12/04/22 Stop Date: 12/04/22 Status: Completed traMADol 50 mg oral tablet See Instructions, PRN Pain , Mild, Take 1-2 tablets every 6 hours as needed for mild pain. not to exceed 400 mg/day, # 56 tablet, 0 Refills, Acute 12/11/22 8:00:00 EST, 12/04/22 9:33:00 EST, Tablet, [facility], Partial fill upon patien... Start Date: 12/04/22 Stop Date: 12/11/22 Status: Ordered Tramadol Tablet 50 mg, Tablet, By Mouth, Every 6 hours, PRN for Pain , Mild, Routine, 12/03/22 11:27:00 EST Start Date: 12/03/22 Stop Date: 12/05/22 Status: Discontinued zolpidem 5 mg oral tablet 1 tablet [...] Confirmed Active Obese class I Confirmed Active Results Radiology Reports * Exam Date Time Procedure Performing Provider Status 12/04/22 9:07 AM Knee 1 or 2 Views Right Harish Maxim e; Auth (Verified) Notes: (Knee 1 or 2 Views Right) Reason For Exam: Postop RESULT: Knee 1 or 2 Views Right Knee 1 or 2 Views Right, 2 views INDICATION: Postop right knee replacement. COMPARISON: None. FINDINGS: Right knee replacement with no evidence of hardware malfunction or malalignment. Mild degenerative changes of the femur and tibia. Moderate joint effusion, likely from recent surgery. Mild subcutaneous emphysema, consistent with recent surgery. IMPRESSION: Status post right knee replacement with mild subcutaneous emphysema and moderate joint effusion. Noevidence of hardware malfunction or malalignment. I have personally reviewed the images and I agree with this report. WSN: [id number] Ordering Physician: Sheri Tripp Dictated By: Dalton Mancera MD Dictated Date/Time: 12/04/22 10:17 a Reviewed By: Eben Malhotra MD, V Signed By: Eben Malhotra MD, V Signed Date/Time: 12/04/22 10:22 am Transcribed By: NINA Transcribed Date/Time: 12/04/22 10:10 am Vital Signs Most recent to oldest [Reference Range]: 1 2 3 Height 163 cm (12/04/22 11:09 AM) 163 cm (12/04/22 6:40 AM) 163 cm (12/04/22 3:52 AM) Weight 82 kg (12/03/22 9:18 AM) 82 kg (12/03/22 7:12 AM) Oxygen Saturation [94-100 %] 99 % (12/04/22 11:09 AM) 98 % (12/04/22 6:40 AM) 99 % (12/04/22 3:52 AM) Pulse Rate [55-90 bpm] 51 bpm *L* (12/04/22 11:09 AM) 65 bpm (12/04/22 6:40 AM) 74 bpm (12/04/22 3:52 AM) Body Mass Index [18.5-24.99 kg/m2] 30.86 kg/m2 *>HHI* (12/03/22 9:18 AM) 30.86 kg/m2 *>HHI* (12/03/22 7:12 AM) Blood Pressure [90-138/55-84 mm Hg] 120/70mm Hg (12/04/22 11:09 AM) 110/61mm Hg (12/04/22 6:40 AM) 116/53mm Hg (12/04/22 3:52 AM) Respiratory Rate [16-30 br/min] 18 br/min (12/04/22 1:27 PM) 16 br/min (12/04/22 11:09 AM) 18 br/min (12/04/22 11:08 AM) Temperature [96.8-100.4 DegF] 97.6 DegF (12/04/22 11:09 AM) 97.6 DegF (12/04/22 6:40 AM) 98.2 DegF (12/04/22 3:52 AM) Liters per Minute 2 L/min (12/03/22 12:15 PM) 6 L/min (12/03/22 12:00 PM) Mode of Delivery (Oxygen) Room air (12/04/22 11:09 AM) Room air (12/04/22 6:40 AM) Room air (12/04/22 3:52 AM) Blood pressure sites Arm, right (12/04/22 11:09 AM) Arm, left (12/04/22 6:40 AM) Arm, right (12/04/22 3:52 AM) Temperature Route Oral (12/04/22 11:09 AM) Oral (12/04/22 6:40 AM) Oral (12/04/22 3:52 AM) Dry Weight 83.5 kg (12/03/22 9:18 AM) 55 kg (12/03/22 7:12 AM) Dry Weight Obtained Via Standing scale (12/03/22 9:18 AM) Social History Social History Type Response Smoking Status Former smoker; Type: Cigarettes entered on: 08/08/15 Sex History and physical note * Event Display: History and Physical Hospital Authored Date: Note * Event Display: Adult Preadmission Health Questionnaire Authored Date: * Event Display: Cardiac Rhythm Strips Authored Date: * Re Garcia RN: PERFORM Event Display: Discharge/Transfer Note Hospital Authored Date: [id number] Nursing Discharge Note Entered On: 12/04/2022 14:57 EST Performed On: 12/04/2022 14:56 EST by Re Garcia RN Nursing Discharge Note 2 Discharge Time : 12/04/2022 14:58 EST Discharge Level of Care at Discharge : Homehealth/VNA Patient Left Unit Via : Wheelchair Patient Accompanied Off Unit with : Significant other DC Instructions Provided & Signed by Pt : Yes Patient Understands D/C Instructions : Yes Patient Instructions Discharge Signed : Yes Did Pt have Specialty Bed or Wound Vac : No Re Garcia RN - 12/04/2022 14:56 EST * Pauline Miles NP: SIGN, VERIFY, PERFORM Event Display: Discharge/Transfer Note Hospital Authored Date: [id number] Patient: GEORGI PHELPS Age: 67 years Sex: Female : 1955 Associated Diagnoses: None Author: Pauline Miles NP Discharge Summary Admission Date: December 03, 2022 Discharge Date: December 04, 2022 Admitting Diagnosis: Right knee osteoarthritis Discharge Diagnosis: Right knee osteoarthritis Final Diagnosis : Right knee osteoarthritis Procedure: Right total knee arthroplasty Surgeon: Dr. Raul Arevalo Past Medical History: 1. Osteoarthritis. 2. Insomnia. 3. Anxiety. 4. Depression. 5. Dyslipidemia. 6. Hypertension. 7. Obesity with a BMI of 31. 8. Rosacea. 9. Heart murmur. PAST SURGICAL HISTORY: 1. Left hip replacement in 01/[address] Arevalo. 2. [place] laminectomy [place] [address] Graves. 3. Right total hip arthroplasty [place] [address] Hanna at [facility]. 4. A back surgery at the age of 29. Orthopedics: The patient is status post right total knee arthroplasty. It is anticipated that she will be discharged home today pending PT, OT clearance. The patient is doing well from a surgical standpoint. Her incision is healing well. Neurovascular status is intact. Calves are supple and nontender. Making good progress with Physical Therapy and Occupational therapy. Supervision with ambulationwalking 30 feet , ambulating with a walker. ROM pending. Pain is well controlled on her current regimen, Acetaminophen 650 mg every 6 hours, Celebrex 200 mg daily, tramadol for mild pain, and oxycodone as needed for severe pain. Patient is tolerating this well. She will be sent home with a prescription for this medication. Prescription: Tramadol 50 mg tablet. Take 1-2 tablets every 6 hours as needed for pain x 7 days. # 56 tablet. Oxycodone IR 5mg tablet. Take 1-2 tablets every 4 hours as needed for pain x 5 days. # 60 tablet. Hospital course: Relatively uneventful medically. The patient had a little nausea overnight, but is feeling better this am. She will be sent home with Demetrius. Pain is controlled now. Patient is voiding spontaneously.+ bowel sounds. No other issues. No calf tenderness. Current Medication List: Acetaminophen: 650 mg, By Mouth, Every 6 hours, May take OTC not to exceed 3000 mg/day Al Hydroxide/Mg Hydroxide/Simethicone: 30 mL, By Mouth, Every 4 hours, PRN (Other), Heartburn Aspirin: 325 mg, By Mouth, 2 times a day Atorvastatin: 40 mg = 1 tablet, By Mouth, Daily, NEEDS TO MAKE APPT FOR FURTHER REFILLS Celecoxib: 200 mg = 1 capsule, By Mouth, Daily in AM Docusate: 100 mg = 1 capsule, By Mouth, 2 times a day, Hold for loose stools Lisinopril: 30 mg = 3 tablet, By Mouth, Daily Milk of Magnesia: 30 mL, By Mouth, Daily, PRN (Constipation) Minocycline: 100 mg = 1 capsule, By Mouth, 2 times a day Ondansetron: 4 mg, By Mouth, Every 6 hours, PRN (Nausea & Vomiting) Oxycodone: See Instructions, PRN (Pain , Moderate), Take 1-2 tablets every 4 hours as needed for moderate to severe pain. Pantoprazole: 40 mg, By Mouth, Daily in AM Polyethylene Glycol 3350: 17 Gm = 1 pack/packet, By Mouth, Daily, PRN (Constipation) Senna: 8.6 mg = 1 tablet, By Mouth, Daily at bedtime, PRN (as needed for constipation) Tramadol: See Instructions, PRN (Pain , Mild), Take 1-2 tablets every 6 hours as needed for mild pain. not to exceed 400 mg/day Zolpidem: 5 mg = 1 tablet, By Mouth, Daily at bedtime Allergies: Allergies (Active and Proposed Allergies Only) No Known Medication Allergies (Severity: Unknown severity, Onset: Unknown) Current Labs: Last 24 Hours Basic Metabolic Panel: Hematology: Sodium: 139 mmol/L (12/04/22) Hgb: 10.9 Gm/dL (12/04/22) Potassium (POC): 4.7 mmol/L (12/04/22) Hemoglobin A1C (Monitoring): ------ Phosphorus: ------ WBC: 10.1 k/mm3 (12/04/22) Magnesium: ------ Platelets: 179 k/mm3 (12/04/22) BUN (POC) POC Cartridge: 14 mg/dL (12/04/22) INR Level: ------ Creatinine-Blood: 0.6 mg/dL (12/04/22) Creatinine Clearance: ------ Additional - Last 24 Hours Abs. NRBC: 0.0 k/mm3 (12/04/22) Anion Gap: 11 (12/04/22) Bicarbonate Level: 25 mmol/L (12/04/22) BUN: BUN (12/04/22) Chloride: 103 mmol/L (12/04/22) Creatinine, Blood: Creatinine, Blood (12/04/22) Estimated GFR Creatinine: 99 ML/MIN/1.73 M2 (12/04/22) Hct: 33.5 % (12/04/22) MCH: 30.5 pg (12/04/22) MCHC: 32.5 g/dL (12/04/22) MCV: 93.8 femtoliters (12/04/22) MPV: 9.8 femtoliters (12/04/22) Nucleated RBC (Automated): 0.0 #/100 WBC'S (12/04/22) RBC: 3.57 m/mm3 (12/04/22) RDW-SD: 45.1 femtoliters (12/04/22) DVT prophylaxis ASA EC 325 mg p o bid x 30 days Disposition: Anticipates being discharged today to home. Follow up at [facility] on 12/16/2022 at 1:15pm , patient is aware of this. The patient has an Aquacel dressing in place. She may shower with it and the dressing can be discontinued on POD 14. Discharge Information Admission Date: 12/03/2022 Principal Discharge Diagnosis Discharge Plan Discharge Disposition Discharge: home with VNA. Home Health Face to Face I certify that this patient is under my care and that I or an allowed non- physician practitioner working with me, had a [id number] encounter with the patient on this date: 12/04/2022. The encounter with the patient was in whole, or in part, for the following medical condition, whichis the primary reason for home health care: Osteoarthritis of right knee. Physical Therapy: Functional mobility training, Home exercise program to strengthen, increase ROM, Falls prevention training. Homebound due to: Inability to leave home without assistance/supervision, Inability to ambulate without assistance, Pain, decreased strength, and endurance. Physician Signature: Mickey HOWARD, Raul Krishnamurthy * Radha BECERRA, Re A: PERFORM Event Display: Patient Education/Instruction Authored Date: [id number] Inpatient Adult Discharge Instructions [place] [id number] Name: GEORGI PHELPS : 1955 Visit: 12/03/2022 06:58:00 Current Date: 12/04/2022 12:34 Account: [id number] Inpatient Adult Discharge Instructions We would like to thank you for allowing us to assist you with your healthcare needs. The following includes patient education materials and information regarding your injury/illness. Our entire staffstrives to provide an excellent experience for our patients and their families. PLEASE ENSURE YOU FOLLOW-UP PER THE INSTRUCTIONS BELOW! ?? YOUR OPINION IS IMPORTANT TO US! Please complete the survey you may receive by mail or email. Your feedback will be used to make improvements to the healthcare experiences of our patients and their families. Surveys are administered by [employer] ?? If further treatment with your primary care physician or another doctor is recommended, it is important for you to keep the appointment. Call your primary care physician or return to the Emergency Department immediately if your condition worsens, fails to improve, or new symptoms develop. If you need to find a doctor, you can call [facility] for a referral at [phone] or toll free at [phone] or log in to [email or web address].. ?? You can view and manage your care through the patient portal or by using a health care layne of your choosing. [employer] is a website that allows you to securely view your medical information including your hospital discharge summary, office visit summaries, medications and follow-up visits. You can also request appointments, renew medications, and request access to your medical information using a health care layne of your choosing, or just ask a question. You can enroll at [email or web address] or register during your next office visit. You have been discharged from [facility], Patient Care Unit: SW7. If you have any questions regarding these instructions after you leave, please call us and we will be happy to assist you. [facility] Your Care Team Attending Physician Raul Arevalo MD Discharging Providers Pauline Miles NP Reason for Admission OA RIGHT KNEE 23OVN Your Diagnosis Osteoarthritis of right knee Tests Performed Below is a partial list of the tests performed during your hospitalization. You may have had other tests and procedures not included in this list. Please discuss all test results with your provider. XR Knee 1 or 2 Views Right Primary Care Provider Brenna Cruz NP Advance Directive Health Care Proxy on File Yes - Health Care Proxy Discharge Vitals Temperature: 97.6 DegF Height: 163 cm Pulse Rate:??51 bpm??Low Weight: 82 kg Respiratory Rate: 16 br/min Body Mass Index:??30.86 kg/m2??Critical Systolic Blood Pressure: 120 mm Hg Body surface area: 1.93 Diastolic Blood Pressure: 70 mm Hg ?? Oxygen Saturation: 99 % ?? Studies Pending All tests and labs ordered during this hospital stay have been completed unless listed below. Please discuss all pending results with your provider listed above in these instructions. ?? BUN CBC Creatinine Electrolytes What to do next Instructions From Your Doctor Discharge Orders You Need to Schedule the Following Appointments Follow Up with??Raul Brothers When?? Why: Appointments at [facility]: ?? December 16, 2022 at 1:15pm ?? January 15, 2023 at 2:00PM Where: [address] [facility] [place] [address]- Business (1) Follow Up with??Brenna Cruz When??In 0 days Where: [address] [place] [address]- Business (1) Follow Up with??[facility] When??Within 1 to 2 weeks Where: Discharge Medications GEORGI PHELPS :1955 Visit Date:12/03/2022 Medications: Please continue your medications until treatment is completed or stopped by your provider. Medications not listed below should be discontinued. Discuss any questions related to medications with your provider. What How Much When Instructions Next Dose New Ondansetron (ondansetron 4 mg oral tablet, disintegrating) 4 Milligram Oral Every 6 hours as needed for Nausea & Vomiting Duration: 7 Days Pickup at [facility] 3 You may take if nauseated New Oxycodone (oxyCODONE 5 mg oral tablet) See instructions Take 1-2 tablets every 4 hours as needed for moderate to severe pain. ?? Pickup at [facility] 3 You may take for moderate to severe pain but do NOT take if taking tramadol New Tramadol (traMADol 50 mg oral tablet) See instructions Take 1-2 tablets every 6 hours as needed for mild pain. not to exceed 400 mg/ day ?? Pickup at [facility] 3 12/04/22 at 6:00PM if needed for mild to moderate pain.?? Do NOT take if taking oxycodone. Unchanged Acetaminophen (acetaminophen 325 mg oral tablet) 650 Milligram Oral Every 6 hours May take OTC not to exceed 3000 mg/ day ?? (you may take OTC for pain) 12/04/22 at 6:00PM Unchanged Aspirin (Aspirin Tablet) 325 Milligram Oral Twice a day (take twice a day for 30 days to prevent blood clots) 12/04 at 8:00PM Unchanged Atorvastatin (atorvastatin 40 mg oral tablet) 1 tab(s) Oral Daily NEEDS TO MAKE APPT FOR FURTHER REFILLS ?? 12/05/22 as usual. Unchanged Celecoxib (celecoxib 200 mg oral capsule) 1 capsule Oral Daily in the morning 12/05/22 at 9:00AM Unchanged Docusate (Colace Capsule) 100 Milligram Oral Twice a day Hold for loose stools ?? (stool softner) 12/04/22 at 8:00PM Unchanged Lisinopril (lisinopril 10 mg oral tablet) 3 tab(s) Oral Daily 12/05/22 as usual. Unchanged Milk of Magnesia (MOM Liquid) 30 Milliliter Oral Daily as needed for Constipation may take OTC if needed for constipation. Unchanged Minocycline (minocycline 100 mg oral capsule) 1 capsule Oral Twice a day 12/05/22 as usual Unchanged Pantoprazole (pantoprazole 40 mg oral delayed release tablet) 40 Milligram Oral Daily in the morning (to prevent gastric reflux) 12/05 at 9:00AM Unchanged Polyethylene Glycol 3350 (MiraLax Powder) 17 gram Oral Daily as needed for Constipation may take OTC if needed Unchanged Senna (senna 187 mg oral tablet) 1 tab(s) Oral Daily at Bedtime as needed for as needed for constipation may take OTC if needed Unchanged Zolpidem (zolpidem 5 mg oral tablet) 1 tab(s) Oral Daily at Bedtime Pharmacy Information [facility]: [address], [place] [id number] [phone] Test Results Below is a partial list of the most recent Laboratory test results done prior to this discharge. You may have had other tests and procedures not included in this list. Please discuss all test resultswith your provider. Allergies (NKA means No Known Allergies) No Known Medication Allergies Problems Active Problems??(8) Adjustment insomnia?? Anxiety?? Arthritis?? Depression with anxiety?? Dyslipidemia?? Hypertension?? Murmur?? Obese class I?? Education Materials Below is the list of Educational Leaflet Providered with your Discharge Instructions. Total Knee Replacement Discharge Instructions?? Valuables and Belongings I fully understand and agree that [facility] accepts no responsibility for all my personal property including clothing, toilet articles, radios, jewelry, dentures, hearing aids, rings, money, or any other property that is in my possession or is brought to me after admission. I understand certain valuables may be placed in a hospital safe for a short period of time. I understand that the hospital is not liable for loss or damage due to accident, fire, or other natural occurrence while said property is in the safe. I accept full responsibility for any personal property that I keep with me, and will not hold the hospital responsible in case of loss or disappearance. I acknowledge that i have been encouraged to send valuables and belongings home. ?? Review of Valuable and Belonging List: With patient Date for Pt to Sign Valuables/Belongings: 12/03/22 07:24:00 ?? Other Discharge Information ? Case Management Discharge Plan?? Discharge Plan?? Discharge Agency Information?? Discharge Level of Care at Discharge: Homehealth/VNA Name of Agency #1: [facility] ?? Agency Dispute Resolution Specialist #1: [phone] ?? Service Categories #1: Physical Therapy ?? Service Comments #1: [facility] will contact you to set up a visit time after discharge. Please call [phone] if you don't hear from them. ?? Pulmonary Rehab Status?? Pulmonary Rehab Discharge Status?? Respiratory Rate: 16 br/min ? Common Emergency Awareness Tips IS IT A STROKE? Act FAST and Check for these signs: FACE Does the face look uneven? ARM Does one arm drift down? SPEECH Does their speech sound strange? TIME Call at any sign of stroke ?? Heart Attack Signs Chest discomfort: Most heart attacks involve discomfort in the center of the chest and lasts more than a few minutes, or goes away and comes back. It can feel like uncomfortable pressure, squeezing, fullness or pain. Discomfort in upper body: Symptoms can include pain or discomfort in one or both arms, back, neck, jaw or stomach. Shortness of breath: With or without discomfort. Other signs: Breaking out in a cold sweat, nausea, or lightheaded. Remember, MINUTES DO MATTER. If you experience any of these heart attack warning signs, call to get immediate medical attention! ?? Smoking can increase your chances of developing chronic health problems and can cause harmful effects to other family members in your house. If you smoke, you are strongly encouraged to quit. Please call [facility] at [phone] or [phone]™ Audio ([phone]) or log in to [email or web address] for referrals to smoking cessation programs. ?? The National Suicide Prevention Hotline is available 10/05 if you or someone you know needs to find a reason to keep living. By calling 1-096-074[employer] (4934) you'll be connected to a skilled, trained counselor at a crisis center in your area. INPATIENT DISCHARGE INSTRUCTIONS SIGNATURE PAGE [facility]:[id number] Location:[facility] Registration Date and Time:12/03/2022 06:58 EST Primary Care Physician: Anthony VALENCIA, Brnena Berrios, I GEORGI PHELPS, have received the above patient education materials/instructions and have verbalized understanding. If ambulance or transport services are being used I further acknowledge being givena choice of service. ?? If you need to contact me, please call me at this number: . Patient/Indigo Mixer Name: Patient/Indigo Mixer Signature: Relationship to Patient: Witness Name/Signature: Date: * Re Garcia RN: PERFORM, SIGN, VERIFY Event Display: Patient Education Handout Authored Date: * Re Garcia RN: PERFORM Event Display: Patient Education Leaflets Authored Date: Total Knee Replacement Discharge Instructions ?? 667 Total Knee Replacement Discharge Instructions ??? Please read and review your Total Knee Replacement Book for detailed information ??? Your appetite may be decreased but try to maintain a good balanced diet ?? Ice and elevation ?Ice is important to help keep swelling down. ?Keep elevated as much as possible. ?Ice the knee 4 times a day for 20 minutes each time. Be sure not to put the ice/ice pack directly on your skin. Use a dish towel or something similar between the ice and your skin. ??? Moving ? Get up and walk frequently. ??? Do 20 ankle pumps every hour. ??? Complete your exercises 4times a day, bending and straightening your knee ??? Begin exercises the evening you go home ??? Moving is especially important. This helps to prevent blood clots. Take short frequent walks. ? Wear your knee brace when walking until your surgeon or physical therapist tells you to stop. ??? You may sleep with or without the brace and sleep anyway you are comfortable. ??? Place a pillow underthe ankle/lower leg when lying down to help with extension of your knee. ??? Do not put a pillow under your knee ??? Continue to move your foot up and down, this exercise helps to prevent blood clotsand to help reduce swelling in your knee ??? No driving until approved by your surgeon ?? Incision ?Your incision is closed with absorbable stitches and surgical glue. ?The dressing iswaterproof. You may shower the next day. ??? You may develop some discoloration around your incision (yellowish or bruising) ??? Your dressing will stay on for 1-2 weeks ?You cannot go in a bath, pool, ocean, pond, medeiros or jacuzzi for 6 weeks. This is to reduce your risk of infection ? You may have some numbness around the incision. This is normal and will improve with time. Some patients have numbness that does not completely go away. ?? When to call the Surgeon?CALL [phone] ?If you have shortness of breath or chest pain, call 911 or go to the nearest emergency department. ??? If you have drainage and/or redness around your wound. ?If you have a fever greater than 101.5 (38.5 degrees Celsius). ?If you have persistent calf pain or swelling (This couldbe a blood clot). ??? If your pain is worsening. ? If you have any difficulty with urination or burning with urination ? Hospital Progress note * Re Garcia RN: PERFORM, SIGN, VERIFY, MODIFY, SIGN, MODIFY, SIGN Event Display: Progress Note Hospital Authored Date: Patient: GEORGI PHELPS Age: 67 years Sex: Female : 1955 Associated Diagnoses: None Author: Re Garcia RN Findings Problem Related to Alteration in Comfort : Alteration in Comfort/new 12/04/2022 10:00 EST Alteration in Comfort Related to Surgery, Other: right TKR - POD#0 Dr. Arevalo Goals & Outcomes: Comfort Pt will report acceptable level of comfort & pain control, Pt will state importance of adhering to pain strategy regime, Pt will demonstrate necessary skills to manage pain, Non-verbal indicators will indicate comfort/pain control Interventions Implemented: Comfort Assess pain using appropriate pain scale/tools, Assess aggravating factors & prevent them accordingly, Assess alleviating factors & promote them accordingly Goals/Interventions, Comfort Yes Comfort, Problem Start 12/03/2022 21:36 Reviewed plan with, Comfort Patient Patient Progression, Comfort Pt progressing according to plan Comfort, Problem Ongoing Yes . Alteration in Musculoskeletal : Alteration in Musculoskeletal Func/new 12/04/2022 10:00 EST Alteration in Musculoskeletal Related to Mobility, Orthopedic Procedure, Total joint replacement Goals & Outcomes, Musculoskeletal Affected extremity will maintain color/motion/sensation, Pt will be free from complications of immobility, Pt will demonstrate ability to participate in ADL's, Pt will report acceptable level of comfort/pain relief Interventions, Musculoskeletal Monitor patients ambulation status, monitor Color/Motion/Sensation, Assist with repositioning, Encourage deep breathing & coughing exercises, Notify MD immediately if tissue perfusion deteriorates, Obtain assistive devices as needed, Teach & Encourage use of Incentive spirometer, Teach Pt/caregiver on ADL's & adaptive equipment, Teach Pt/caregiver on exercises, Teach pt/caregiver on use of pain scale, Teach Pt/caregiver complications of immobility, Teach Pt/caregiver techniques to increase mobility, Teach Pt/caregiver on safety precautions BH Goals/Interventions, Musculoskeletal Yes Musculoskeletal, Problem Start 12/03/2022 7:10 Reviewed Plan with, Musculoskeletal Patient Patient Progression, Musculoskeletal Pt progressing according to plan . Narrative/Incidental Pt. alert/oriented times 3. Pt. denies dizziness. Abd. soft/nontender, +BS, +nausea, medicated withzofran, decadron and scope patch, pending effects. Lung sounds clear. IS being used with good effort. Pt. voiding in BR.. Evaluation P: Alteration in musculoskeletal system/comfort I: See above for updated careplan E: POD#[address] Arevalo. Aquacel d/i to right knee. Pt. with +plantar/dorsiflexion and strong pedal pulses to RLE. Pt. ambulating with walker with steady gait. Pt. worked with PT/OT this am but needing to go back to afternoon therapist to review stairs. Pt. on ASA post-op for DVT prophylaxis. Compression boots on. Pt. with c/o 5/10 pain to right knee, medicated with oxycodone 10mg but pt. thinks oxycodone is making her nauseated. Pt. medicated with zofran for nausea without much effects. RN updated Pauline Miles NP regarding pt.'s nausea. Pt. medicated with toradol, scope patch and decadron, pending effects. Will trial pt. on tramadol after discussing with pt. and TESTING COORDINATOR as pt. stated pain is only a 3-4/10 at present time, see MAR. Plan for d/c to home once cleared with therapy and pt.'s nausea is resolved.. * Radha BECERRA, Re A: PERFORM Event Display: Progress Note Hospital Authored Date: [id number] Pt. stated that she does have any nausea and is tolerating tramadol 50mg for 3/10 pain. Pt. workingwith PT and plan for d/c to home once cleared by therapist. * Myra BECERRA, Radha: PERFORM, SIGN, VERIFY, MODIFY, SIGN Event Display: Progress Note Hospital Authored Date: Patient: GEORGI PHELPS Age: 67 years Sex: Female : 1955 Associated Diagnoses: None Author: Myra BECERRA, Radha Findings Problem Related to Alteration in Comfort : Alteration in Comfort/new 12/03/2022 21:00 EST Alteration in Comfort Related to Surgery, Other: right TKR - POD#0 Dr. Arevalo Goals & Outcomes: Comfort Pt will report acceptable level of comfort & pain control, Pt will state importance of adhering to pain strategy regime, Pt will demonstrate necessary skills to manage pain, Non-verbal indicators will indicate comfort/pain control Interventions Implemented: Comfort Assess pain using appropriate pain scale/tools, Assess aggravating factors & prevent them accordingly, Assess alleviating factors & promote them accordingly. Alteration in Musculoskeletal : Alteration in Musculoskeletal Func/new 12/03/2022 21:00 EST Alteration in Musculoskeletal Related to Mobility, Orthopedic Procedure, Total joint replacement Goals & Outcomes, Musculoskeletal Affected extremity will maintain color/motion/sensation, Pt will be free from complications of immobility, Pt will demonstrate ability to participate in ADL's, Pt will report acceptable level of comfort/pain relief Interventions, Musculoskeletal Monitor patients ambulation status, monitor Color/Motion/Sensation, Assist with repositioning, Encourage deep breathing & coughing exercises, Notify MD immediately if tissue perfusion deteriorates, Obtain assistive devices as needed, Teach & Encourage use of Incentive spirometer, Teach Pt/caregiver on ADL's & adaptive equipment, Teach Pt/caregiver on exercises, Teach pt/caregiver on use of pain scale, Teach Pt/caregiver complications of immobility, Teach Pt/caregiver techniques to increase mobility, Teach Pt/caregiver on safety precautions, Incision care as ordered, [place] Pt/caregiver to Total Knee Replacement protocol . Nursing Data Vital Signs : VITAL SIGNS SECTION 12/04/2022 0:00 EST Temperature 98.3 DegF Temperature Route Oral Pulse Rate 60 bpm Respiratory Rate 18 br/min Systolic Blood Pressure 123 mm Hg Diastolic Blood Pressure 59 mm Hg Blood pressure sites Arm, right Mean Arterial Pressure 80 mm Hg Pulse Pressure 64 mm Hg Oxygen Saturation 100 % Mode of Delivery (Oxygen) Room air 12/03/2022 23:50 EST Respiratory Rate 18 br/min 12/03/2022 20:52 EST Respiratory Rate 18 br/min 12/03/2022 19:52 EST Respiratory Rate 18 br/min 12/03/2022 19:43 EST Temperature 97.7 DegF Temperature Route Oral Pulse Rate 71 bpm Respiratory Rate 18 br/min Systolic Blood Pressure 125 mm Hg Diastolic Blood Pressure 68 mm Hg Blood pressure sites Arm, right Mean Arterial Pressure 87 mm Hg Pulse Pressure 57 mm Hg Oxygen Saturation 98 % Mode of Delivery (Oxygen) Room air . Evaluation P: Alteration in Comfort Alteration in Musculoskeletal Function I: See Above Care Plans for Interventions E: Ms. Georgi Phelps, 67 year old female, A&O x 3, 1 assist with walker for ambulation, pt. ambulated 1x during shift. Pt. POD#0 - Right TKR - Dr. Arevalo. Pt. accepting fluids and voiding appropriately, CYU. LBM: 12/03, abdomen round, SNT, +BS. Pt. reported feeling nausea and received maalox at 18:30 with no effect, administered 4mg zofran with positive effect. Right leg wrapped in JOANIE wrap with splint, dressing CDI, +PP left foot, right foot wiggles toes, +CMS, +D/P flexion, ice in place onright knee, knee immobilizer in place and compression boots on bilateral legs. Pt. endorsed 6/10 pain and received scheduled 650mg tylenol and 10mg oxycodone at 20:00 and 00:00 with positive effect. Pt. received 2 doses of Cefazolin and was compliant with all scheduled HS medications; pleasant and cooperative with care. See CIS for further assessments, labs, vitals and I&O's. All safety measures in place: bed in lowest position, wheels locked, non-slip socks on bilateral feet and call denis within reach. Frequent purposeful rounding done. Will continue to monitor plan of cares.. * Idalia Pettit RN: MODIFY, SIGN, PERFORM, SIGN, VERIFY Event Display: Progress Note Hospital Authored Date: [id number] Patient: GEORGI PHELPS Age: 67 years Sex: Female : 1955 Associated Diagnoses: None Author: Wilver BECERRA, Idalia Findings Problem Related to Alteration in Musculoskeletal : Alteration in Musculoskeletal Func/new 12/03/2022 7:00 EST Alteration in Musculoskeletal Related to Mobility, Orthopedic Procedure, Total joint replacement Goals & Outcomes, Musculoskeletal Affected extremity will maintain color/motion/sensation, Pt will be free from complications of immobility, Pt will demonstrate ability to participate in ADL's, Pt will report acceptable level of comfort/pain relief Interventions, Musculoskeletal Monitor patients ambulation status, monitor Color/Motion/Sensation, Assist with repositioning, Teach & Encourage use of Incentive spirometer, Teach pt/caregiver on use of pain scale Goals/Interventions, Musculoskeletal Yes Musculoskeletal, Problem Start 12/03/2022 7:10 Reviewed Plan with, Musculoskeletal Patient Patient Progression, Musculoskeletal Plan Initiation . Nursing Data Vital Signs : VITAL SIGNS SECTION 12/03/2022 15:33 EST Early Warning Score 2.00 12/03/2022 15:33 EST Temperature 97.8 DegF Temperature Route Oral Pulse Rate 75 bpm Respiratory Rate 18 br/min Systolic Blood Pressure 132 mm Hg Diastolic Blood Pressure 61 mm Hg Blood pressure sites Arm, right Mean Arterial Pressure 85 mm Hg Pulse Pressure 71 mm Hg Oxygen Saturation 98 % Mode of Delivery (Oxygen) Room air . Narrative/Incidental Pt arived from PACU via bed s/p R TKR with Dr. Arevalo. Pt A+O x3. Pt c/o pain 5/10 upon arrival from PACU. Pt educated on plan to start oral pain medication as soon as possible to aid in post-op pain management. Pt verbalizes understanding, oxycodone 5 mg. administered x1 shortly after arrival. LS clear bilaterally. IS provided and pt educated on proper use. Pt accurately demonstrates, encouraged to use 10x per hour. Pt denies any SOB or chest pain. Pt has +BS, last BM 12/03. Pt attempted to void upon arrival, stating she needs to pee. Pt got lightheaded and dizzy at the edge, but refusing to use a bedpan. Will attempt to get OOB and utilize commode again shortly. R knee with aquacel dsg and joanie wrap covering C/D/I. +DF +PF +CMS +PP RLE. Immobilizer in place and ice present for comfort. IVF running per current order. Pt denies any nausea/vomitting-regular diet initiated. C-boots and plan for aspirin 325 mg. BID for DVT prophylaxis. Pt educated on safety and fall precautions, positively oriented to room sw710. All aspects of plan of care reviewed, pt will attempt to get OOB with PT shortly.. Discharge Information Case Management Discharge Plan : Case Management Discharge Plan Data 12/03/2022 11:51 EST Discharge Level of Care at Discharge Homehealth/[facility]NA Name of Agency #1 [facility] Dispute Resolution Specialist # Service Categories #1 Physical Therapy Service Comments #1 [facility] will contact you to set up a visit time after discharge. Please call [phone] if you don't hear from them. XR Knee - right 1 or 2 Views * [facility] , CIS S: TRANSCRIBE Dalton Mancera MD: SIGN Eben Malhotra MD, V: VERIFY Event Display: Result: Authored Date: [id number] Knee 1 or 2 Views Right, 2 views INDICATION: Postop right knee replacement. COMPARISON: None. FINDINGS: Right knee replacement with no evidence of hardware malfunction or malalignment. Mild degenerative changes of the femur and tibia. Moderate joint effusion, likely from recent surgery. Mild subcutaneous emphysema, consistent with recent surgery. IMPRESSION: Status post right knee replacement with mild subcutaneous emphysema and moderate joint effusion. Noevidence of hardware malfunction or malalignment. I have personally reviewed the images and I agree with this report. WSN: [id number] Ordering Physician: Sheri Tripp Dictated By: Dalton Mancera MD Dictated Date/Time: 12/04/22 10:17 a Reviewed By: Eben Malhotra MD, V Signed By: Eben Malhotra MD, V Signed Date/Time: 12/04/22 10:22 am Transcribed By: NINA Transcribed Date/Time: 12/04/22 10:10 am Patient Care team information Care Team Personnel Name: Omayra Rhodes RN Position: S RN Member Role: Primary Care Nurse Name: Azalia Mann RN Position: S RN Member Role: Primary Care Nurse Name: Brenna Cruz NP Position: [facility] Outreach Member Role: PCP Address: Address: [address] [place] [id number]- Name: Myra BECERRA, Radha Position: [facility] RN Member Role: Primary Care Nurse Care Team Related Persons Name: STACIA PHELPS Address: [address] [address]
--- OUTSIDE RECORDS SUMMARY | 2024-03-31 08:58 | XMS_ITS | Continuity of Care Document ---
Author Organization [facility] ter Address [address] [place] [id number]- Care Team Providers Care Church History Professor Name Role Phone Anthony VALENCIA, Brenna Berrios Primary Care Physician Encounter [facility] [place] Date(s): 01/16/22 - 02/15/[address] [address] Attending Physician: Cipriano Burns Admitting Physician: AdmCipriano munoz Referring Physician: Admtr, Ar8 Allergies, Adverse Reactions, [...]
--- OUTSIDE RECORDS SUMMARY | 2024-03-31 08:58 | XMS_ITS | Continuity of Care Document ---
Author Organization [facility] ter Address [address] [place] [id number]- Care Team Providers Care Staff Developer Name Role Phone Anthony VALENCIA, Brnena Berrios Primary Care Physician Encounter [facility] [place] Date(s): 11/03/22 - 12/03/[address] [address] Attending Physician: Cipriano Burns Admitting [...] Team Personnel Name: Omayra Rhodes RN Position: [facility] RN Member Role: Primary Care Nurse Name: Azalia Mann RN Position: S RN Member Role: Primary Care Nurse Name: Brenna Cruz NP Position: [facility] Outreach Member Role: PCP Address: Address: [address] [place] [id number]- Name: Radha Renteria RN Position: [facility] RN Member Role: Primary Care Nurse Care Team Related Persons Name: STACIA CABELLO Address: home [address] [place] [address]
[2024-03-31 09:06] VITALS: BP 136/80; PULSE 80; TEMP 36.6; O2SAT 98
--- NOTE | 2024-03-31 09:06 | MHC.OFFWIV ---
Intake Vital Signs 03/31/24 09:06 Height 5 ft 5 in Weight 180 lb BMI 30.0 BP 136/80 Blood Pressure Location Lt brachial Position Sitting Pulse 80 Pulse Source Pulse Oximeter Temp 98 F Pulse Oximetry (%) 98 Oxygen Delivery Method Room Air Intake Visit Reasons: Left ear blockage Patient Tobacco Use Status: Former Tobacco user Allergies No Known Allergies Allergy (Verified 03/31/24 09:08) Medication List - Last Reconciled 03/31/24 by BRANDYN Boyce atorvastatin 40 mg PO DAILY bupropion HCl XL (Wellbutrin XL) 150 mg PO QAM cholecalciferol (vitamin D3) 50 mcg PO DAILY ivermectin 5 tabs every month lisinopril 40 mg PO DAILY 90 days mecobalamin (vitamin B12) 1,000 mcg sublingual BEDTIME multivitamin 1 tab PO DAILY venlafaxine ER 75 mg PO BEDTIME venlafaxine ER 37.5 mg PO BEDTIME zolpidem 5 mg PO BEDTIME PRN HPI HPI Comments History of Present Illness Details Here today w/ cont c/o L ear feeling blocked at last OV she was Rxs augmentin for 7 days completed this therapy feels better but feels like cannot hear out of left ear and throat is scratchy left side of face feels stuffed up No at home remedies Cont to take antihistamine BID Cont to use flonase -- admits to forgetting to use in the AM so only taking at HS Awake alert NAD Sclera and conjunctiva clear bilat Nares patent, turbinates within normal limits, no sinus tenderness with palpation bilat TM intact & clear on right, improved erythema & bulging on the left w/ some clearing MMM, pharynx + PND RRR LS CTAB PFSH Medical History (Updated 03/31/24 @ 09:19 by BRANDYN Boyce) PVD (peripheral vascular disease) EPIFANIO (generalized anxiety disorder) Hypercholesterolemia Essential hypertension COVID Encounter to establish care Surgical History History of total knee replacement (TKR) History of left hip replacement History of dental surgery History of back surgery History of hip replacement, total Social History Household Members: Spouse and Family Both parents involved: No Caregiver staying overnight: No Housing: House Are you a primary childcare administrator to a significant other at home: No Do you presently have visiting nurse or other home services: No 75 years or older and lives alone: No Alcohol intake: current Alcohol intake frequency: 0-2 drinks per day Alcohol type: wine Patient Tobacco Use Status: Former Tobacco user e-Cigarette/Vaping Use: Never Used Second Hand Smoke Exposure: No service: No Current occupational status: employed 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 (2) Eustachian tube dysfunction: Code(s): H69.90 - Unspecified Eustachian tube disorder, unspecified ear Qualifiers: Laterality: left Qualified Code(s): H69.92 - Unspecified Eustachian tube disorder, left ear Plan: . Plan . Patient Instructions: Plan: Try insufflation Cont flonase twice per day Stop sudafed or psuedofed Ok to use OTC Zyrtec Supportive care, this can last up to 3 months If develop fever, chills, worsening ear pain or worsening of sx, please return as this is not expected. Coding Level of Care Code Est Pt Level 3 (35706) Diagnoses Seasonal allergies J30.2 Dysfunction of left eustachian tube H69.92 Laterality: left
== END 2024-03-31 09:25 | disposition home or self-care (01) ==
PROVIDERS: PCP Nurse Practitioner Family; Visit Provider Nurse Practitioner Family
DX: J30.2 Other seasonal allergic rhinitis (principal); H69.92 Unspecified Eustachian tube disorder, left ear
CPT/HCPCS: 99213

== ENCOUNTER 2024-05-19 07:55 | Outpatient (AMB) | payer OTHER, SELFPAY ==
[2024-05-19 08:11] VITALS: BP 118/66; PULSE 77; O2SAT 99
--- NOTE | 2024-05-19 08:11 | MHC.OFFWIV ---
Intake Vital Signs 05/19/24 08:11 BP 118/66 Blood Pressure Location Rt brachial Position Sitting Pulse 77 Pulse Source Pulse Oximeter Pulse Oximetry (%) 99 Oxygen Delivery Method Room Air Intake Visit Reasons: Check left ear Intake Note: Patient is here for an ear recheck. 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 Required: No Accompanied by: Self / Same As Patient Allergies No Known Allergies Allergy (Verified 05/19/24 08:22) Medication List - Last Reconciled 05/19/24 by MONTSE BoyceP- atorvastatin 40 mg PO DAILY bupropion HCl XL (Wellbutrin XL) 150 mg PO QAM cholecalciferol (vitamin D3) 50 mcg PO DAILY ivermectin 5 tabs every month lisinopril 40 mg PO DAILY 90 days mecobalamin (vitamin B12) 1,000 mcg sublingual BEDTIME multivitamin 1 tab PO DAILY venlafaxine ER 75 mg PO BEDTIME venlafaxine ER 37.5 mg PO BEDTIME zolpidem 5 mg PO BEDTIME PRN Do you need a note to return to daycare/school/sports/work: No HPI HPI Comments History of Present Illness Details 69-year-old female with anxiety, vitamin-D deficiency, hyperlipidemia, hypertension, insomnia, rosacea, former smoker, urinary incontinence, B12 deficiency, sensorineural hearing loss bilat, diverticulosis, lipoma R buttocks Here today for re-evaluation of her left ear. She was seen March 21 and prescribed Augmentin for 7 days. She returned to the walk-in clinic on the with continued sensation of a blocked left ear. At that time it was thought that she had Eustachian tube dysfunction along with seasonal allergies. She was advised to continue her Flonase, stopped her Sudafed, try [id number] Zyrtec, perform self insufflation. Educated this can last up to 3 months. Has been taking antihistamine. Just wants to make sure its alright. Wants to make sure the ear is better before restarting her hearing aides. Denies any pain, drainage. taking flonase and doing self insufflation as directed, Also needs a refill on wellbutrin, taking 300mg, self increased from 150mg, having + wt loss. no side effects. exam: Awake alert NAD Sclera and conjunctiva clear bilat TM intact bilat with small crescent of congestion, no erythema or bulging on the left MMM, pharynx wnl Plan: wellbutrin xl 300mg po qd resolving etd, cont flonase, antihistamine & self insufflation, start hearing aide [facility] Medical History (Updated 05/19/24 @ 08:36 by Jordyn Zuluaga [facility]) PVD (peripheral vascular disease) EPIFANIO (generalized anxiety disorder) Hypercholesterolemia Essential hypertension COVID Encounter to establish care Surgical History History of total knee replacement (TKR) History of left hip replacement History of dental surgery History of back surgery History of hip replacement, total Social History Household Members: Spouse and Family Both parents involved: No Caregiver staying overnight: No Housing: House Are you a primary care associate to a significant other at home: No Do you presently have visiting nurse or other home services: No 75 years or older and lives alone: No Alcohol intake: current Alcohol intake frequency: 0-2 drinks per day Alcohol type: wine Patient Tobacco Use Status: Former Tobacco user e-Cigarette/Vaping Use: Never Used Second Hand Smoke Exposure: No service: No Current occupational status: employed 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 (2) Seasonal allergies: Code(s): J30.2 - Other seasonal allergic rhinitis Plan: . (3) Sensorineural hearing loss: Comment: Audiogram done. Hearing aids Code(s): H90.5 - Unspecified sensorineural hearing loss Qualifiers: Laterality: bilateral Qualified Code(s): H90.3 - Sensorineural hearing loss, bilateral Plan: . (4) Class 1 obesity with body mass index (BMI) of 31.0 to 31.9 in adult: Code(s): E66.9 - Obesity, unspecified; Z68.31 - Body mass index [BMI] 31.0-31.9, adult Qualifiers: Obesity type: due to excess calories Serious obesity comorbidity presence: with serious comorbidity Qualified Code(s): E66.09 - Other obesity due to excess calories; Z68.31 - Body mass index [BMI] 31.0-31.9, adult Plan: . Medications: New bupropion HCl XL (Wellbutrin XL) 300 mg PO QAM 90 tabs 1RF Discontinued bupropion HCl XL (Wellbutrin XL) Discontinued Reason: Doctor's Order 150 mg PO QAM 90 tabs 0RF Coding Level of Care Code Est Pt Level 4 (24529) Diagnoses Dysfunction of left eustachian tube H69.92 Laterality: left Seasonal allergies J30.2 Sensorineural hearing loss (SNHL) of both ears H90.3 Laterality: bilateral Class 1 obesity due to excess calories with serious comorbidity and body mass index (BMI) of 31.0 to 31.9 in adult E66.09; Z68.31 Obesity type: due to excess calories Serious obesity comorbidity presence: with serious comorbidity
== END 2024-05-19 08:33 | disposition home or self-care (01) ==
PROVIDERS: PCP Nurse Practitioner Family; Visit Provider Nurse Practitioner Family
DX: H69.92 Unspecified Eustachian tube disorder, left ear (principal); J30.2 Other seasonal allergic rhinitis; H90.3 Sensorineural hearing loss, bilateral; E66.09 Other obesity due to excess calories; Z68.31 Body mass index [BMI] 31.0-31.9, adult
CPT/HCPCS: 99214

== ENCOUNTER 2024-06-30 08:03 | Outpatient (AMB) | payer OTHER, SELFPAY ==
--- NOTE | 2024-06-30 08:19 | MHC.PC.OV ---
Vital Signs 06/30/24 08:22 Height 5 ft 5 in Weight 175 lb 6 oz BMI 29.2 BP 112/60 Blood Pressure Location Lt brachial Position Sitting Respiration 14 Pulse 68 Pulse Source Pulse Oximeter Pulse Oximetry (%) 98 Oxygen Delivery Method Room Air Intake Visit Reasons: f/u chronic conditions Intake Note: routine follow up Allergies No Known Allergies Allergy (Verified 06/30/24 08:34) Medication List - Last Reconciled 06/30/24 by Jordyn Zuluaga, [employer]- atorvastatin 40 mg PO DAILY bupropion HCl XL (Wellbutrin XL) 300 mg PO QAM cholecalciferol (vitamin D3) 50 mcg PO DAILY ivermectin 5 tabs every month lisinopril 40 mg PO DAILY 90 days mecobalamin (vitamin B12) 1,000 mcg sublingual BEDTIME multivitamin 1 tab PO DAILY venlafaxine ER 75 mg PO BEDTIME venlafaxine ER 37.5 mg PO BEDTIME zolpidem 5 mg PO BEDTIME PRN Tobacco use date assessed: 02/25/24 Dental Screening Dental Screen Date: 02/25/24 HPI HPI Comments History of Present Illness Details 69-year-old female with anxiety, vitamin-D deficiency, hyperlipidemia, hypertension, insomnia, rosacea, former smoker, urinary incontinence, B12 deficiency, sensorineural hearing loss bilat, diverticulosis, lipoma R buttocks, PVD Specialist 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 Tolerating compliant of all of her medication therapies. Active with her care team. In regards to her seasonal allergies and chronic Eustachian tube dysfunction, If forgets to take antihistamine, left ear cont to feel like it gets clogged, cont to have a lot of junk in throat. The PND is better w/ antihistamine use. Cont to use flonase. Cont to lose wt, tolerating Wellbutrin. Mood stable. HTN well controlled,no chest pain or sob, swelling in lower ext. Vit D def, taking 2000 IU daily Ambien every night for sleep, works well PCV vaccines reviewed. Otherwise up-to-date on vaccinations No hospital visits, ED visits, Falls. Exam: Awake alert oriented Sclera is nonicteric bilat Nares with clear drainage R, turbinates WNL TM intact, mild clouding bilat Mucous membranes moist Pharynx WNL No carotid bruit bilat Regular rate and rhythm Lung sounds clear to auscultation bilat Abdomen soft nontender, no hepatomegaly No edema bilateral lower extremities, decreased pedal pulses bilat, skin intact, hairless Mood and affect appropriate Plan: Check fasting labs Will need to consider Vit D dosing after labs are resulted Continue all medications as currently prescribed Check with the pharmacy to see if you are due for any of the pneumococcal vaccines; flu and COVID vaccinations also recommended Consider allergy testing and shots. If he would like to pursue this please let me know if a referral is needed I would be happy to place 1. Other than that please continue your Flonase and antihistamine as this seems to be helping Return to the office in 4-6 months for routine follow up, sooner as needed This note is constructed using voice recognition software. While every effort has been made to ensure accuracy in booth usher, still errors may have been included Sometimes, these errors may affect the content or meaning of the given sentence . Total time spent caring for the patient today was 30 minutes. This includes time spent before the visit reviewing the chart, time spent during the visit, and time spent after the visit on documentation [facility] Medical History (Updated 06/30/24 @ 13:52 by Jordyn Zuluaga, [facility]) PVD (peripheral vascular disease) EPIFANIO (generalized anxiety disorder) Hypercholesterolemia Essential hypertension COVID Encounter to establish care Surgical History History of total knee replacement (TKR) History of left hip replacement History of dental surgery History of back surgery History of hip replacement, total Social History Household Members: Spouse and Family Both parents involved: No Caregiver staying overnight: No Housing: House Are you a primary residential child care counselor to a significant other at home: No Do you presently have visiting nurse or other home services: No 75 years or older and lives alone: No Alcohol intake: current Alcohol intake frequency: 0-2 drinks per day Alcohol type: wine Patient Tobacco Use Status: Former Tobacco user e-Cigarette/Vaping Use: Never Used Second Hand Smoke Exposure: No service: No Current occupational status: employed 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 Andrea Jerry, Aliza Banegas, Sarthak Campbell and colleagues, with an educational gucci from [employer]. Physical exam (Primary Care) Vital Signs: Last Vital Signs Pulse 68 06/30/24 08:22 Resp 14 06/30/24 08:22 BP 112/60 06/30/24 08:22 Pulse Ox 98 06/30/24 08:22 Oxygen Delivery Method Room Air 06/30/24 08:22 BMI result Body Mass Index 29.2 BMI Assessment/Plan discussion: High BMI High, discussed plan: lifestyle Tobacco/Smoking Status: Tobacco use Status Tobacco use date assessed 02/25/24 06/30/24 08:23 Patient Tobacco Use Status Former Tobacco user 06/30/24 08:23 e-Cigarette/Vaping Use Never Used 06/30/24 08:23 Thrive Assessment: Date of Thrive Assessment Date Thrive assessed 04/29/23 06/30/24 08:23 Assessment and Plan Assessment & Plan (1) Essential hypertension: Comment: Blood pressure at target of less than 130/80 on lisinopril 40 mg continue Code(s): I10 - Essential (primary) hypertension (2) Hypercholesterolemia: Comment: On atorvastatin 40. Managing well without side effects. Lipid panel ordered today. LDL goal less than 70 Code(s): E78.00 - Pure hypercholesterolemia, unspecified (3) Vitamin D deficiency: Comment: On vitamin-D supplementation. We will check vitamin-D level today Code(s): E55.9 - Vitamin D deficiency, unspecified (4) B12 deficiency: Comment: On sublingual B12 supplement. We will check labs today. Code(s): E53.8 - Deficiency of other specified B group vitamins (5) Eustachian tube dysfunction: Code(s): H69.90 - Unspecified Eustachian tube disorder, unspecified ear Qualifiers: Laterality: left Qualified Code(s): H69.92 - Unspecified Eustachian tube disorder, left ear (6) Seasonal allergies: Code(s): J30.2 - Other seasonal allergic rhinitis (7) EPIFANIO (generalized anxiety disorder): Comment: Managed well by outside prescriber. On Effexor. Code(s): F41.1 - Generalized anxiety disorder (8) PVD (peripheral vascular disease): Comment: Of bilateral lower extremities based on physical exam of decreased pedal pulses, hairless skin. On statin. Was on aspirin for greater than 10 years. Discussion had today and shared decision-making to discontinue after she completes her medication that she has on hand. Code(s): I73.9 - Peripheral vascular disease, unspecified (9) Overweight (BMI 25.0-29.9): Code(s): E66.3 - Overweight Orders: Orders Comprehensive [place]. Panel Fast Today E53.8 - Deficiency of other specified B group vitamins, E55.9 - Vitamin D deficiency, unspecified, E78.00 - Pure hypercholesterolemia, unspecified, I10 - Essential (primary) hypertension Lipid Panel Today E53.8 - Deficiency of other specified B group vitamins, E55.9 - Vitamin D deficiency, unspecified, E78.00 - Pure hypercholesterolemia, unspecified, I10 - Essential (primary) hypertension Vitamin B12 and Folate Today E53.8 - Deficiency of other specified B group vitamins, E55.9 - Vitamin D deficiency, unspecified, E78.00 - Pure hypercholesterolemia, unspecified, I10 - Essential (primary) hypertension TSH reflex Free T4 Today E53.8 - Deficiency of other specified B group vitamins, E55.9 - Vitamin D deficiency, unspecified, E78.00 - Pure hypercholesterolemia, unspecified, I10 - Essential (primary) hypertension Hemoglobin A1c Today E53.8 - Deficiency of other specified B group vitamins, E55.9 - Vitamin D deficiency, unspecified, E78.00 - Pure hypercholesterolemia, unspecified, I10 - Essential (primary) hypertension Vitamin D 25-OH Total Today E53.8 - Deficiency of other specified B group vitamins, E55.9 - Vitamin D deficiency, unspecified, E78.00 - Pure hypercholesterolemia, unspecified, I10 - Essential (primary) hypertension Coding Level of Care Code Est Pt Level 4 (97320) Complex EM visit Add On G2211 Diagnoses Essential hypertension I10 Hypercholesterolemia E78.00 Vitamin D deficiency E55.9 B12 deficiency E53.8 Dysfunction of left eustachian tube H69.92 Laterality: left Seasonal allergies J30.2 EPIFANIO (generalized anxiety disorder) F41.1 PVD (peripheral vascular disease) I73.9 Overweight (BMI 25.0-29.9) E66.3
[2024-06-30 08:22] VITALS: BP 112/60; PULSE 68; RESP 14; O2SAT 98; BMI 29.2
== END 2024-06-30 10:04 | disposition home or self-care (01) ==
PROVIDERS: PCP Nurse Practitioner Family; Visit Provider Nurse Practitioner Family
DX: I10 Essential (primary) hypertension (principal); E78.00 Pure hypercholesterolemia, unspecified; E55.9 Vitamin D deficiency, unspecified; I73.9 Peripheral vascular disease, unspecified; E53.8 Deficiency of other specified B group vitamins; H69.92 Unspecified Eustachian tube disorder, left ear; J30.2 Other seasonal allergic rhinitis; F41.1 Generalized anxiety disorder; E66.3 Overweight
CPT/HCPCS: 99214

== ENCOUNTER 2024-10-23 08:57 | Outpatient (AMB) | payer OTHER, SELFPAY ==
--- NOTE | 2024-10-23 08:58 | A.OFFPC_ITS ---
Vital Signs 10/23/24 09:02 Height 5 ft 5 in Weight 162 lb BMI 27.0 BP 112/64 Blood Pressure Location Rt brachial Position Sitting Respiration 12 Pulse 71 Pulse Source Pulse Oximeter Pulse Oximetry (%) 97 Oxygen Delivery Method Room Air Intake Visit Reasons: Pt. is having problems with her memory Intake Note: Patient complaining of feeling forgetful lately. Production Sampler Required: No Allergies No Known Allergies Allergy (Verified 10/23/24 09:07) Medication List - Last Reconciled 10/23/24 by EAGLE Boyce-BC atorvastatin 40 mg PO DAILY bupropion HCl XL (Wellbutrin XL) 300 mg PO QAM cholecalciferol (vitamin D3) 50 mcg PO DAILY lisinopril 40 mg PO DAILY mecobalamin (vitamin B12) 1,000 mcg sublingual BEDTIME multivitamin 1 tab PO DAILY venlafaxine ER 75 mg PO BEDTIME venlafaxine ER 37.5 mg PO BEDTIME zolpidem 5 mg PO BEDTIME PRN Tobacco use date assessed: 02/25/24 Fall risk assessment: No Falls in past year Last assessed Fall Risk: 10/23/24 Dental Screening Dental Screen Date: 02/25/24 HPI HPI Comments History of Present Illness Details 69-year-old female with anxiety, vitami n-D deficiency, hyperlipidemia, hypertension, insomnia, rosacea, former smoker, urinary incontinence, B12 deficiency, sensorineural hearing loss bilat, diverticulosis, lipoma R buttocks Sis Specialist 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 She reports experiencing increased forgetfulness over the past couple of months. Specifically, she notes difficulty remembering tasks at work after initially planning them. The patient denies losing items such as car keys, becoming lost while driving, or forgetting familiar names. There is no mention of others noticing her memory issues, indicating it to be a personal concern. She has not undergone any previous diagnostic workup for these symptoms but agreed for baseline laboratory tests to evaluate metabolic causes. There is no history of head trauma or falls related to the memory concerns, and no urinary changes were discussed. HtN well controlled on current meds on statin for cholesterol, updated labs required. mood is stable on current meds. Health Maintenance - Immunization review for volunteer work at [facility], confirming up-to-date tetanus, shingles, and COVID vaccinations; required blood test for varicella immunity and MMR discussed. 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 Review of Systems Intentional wt loss; on wellbutrin. - Neurological: Reports memory issues; D enies losing items, becoming lost. - Genitourinary: Denies urinary changes. Drinks 2 glasses wine every night Physical Exam Awake alert NAD Pupils respond to light, normal eye exam findings. RRR LS CTAB Neurological- slight difficulty with heel-to-toe walking otherwise normal neuro exam, Able to count backwards, repeat month names in reverse, recall names after delay; Strength testing in upper and lower extremities normal. Plan - Conduct laboratory tests to assess vit tierney levels, thyroid function, and metabolic profile to investigate memory concerns. - Schedule and manage blood tests for va ricella, MMR immunity, and any additional immunity required for volunteer clearance. - Encourage the use and proper programmi ng of hearing aids to mitigate potential effects on memory. - Plan a follow-up to discuss laboratory results and further evaluation for cognitive function based on initial screening outcomes cont all meds Patient was informed and verbally consented to the use of an ambient scribefor clinic note documentation during this visit. Discussion Notes I discussed with the patient the potential metabolic causes of her memory impairment, including vitamin B12 deficiency, thyroid function, and the impact of uncorrected hearing difficulties. We reviewed the necessary blood tests required for varicella and MMR immunity for her volunteering position. I emphasized the importance of having her hearing aids programmed correctly, as hearing difficulties may contribute to perceived memory issues. Risks and benefits of the diagnostic workup were covered, and she consents to proceed with the testing. I advised her to either bring the results to the next appointment or upload them through the patient portal. Complete follow-up arrangements will be made after the results are obtained. Patient Instructions - Complete the blood tests to check for vitamin B12, metabolic profile, and immunity status. - Ensure hearing aids are correctly prog rammed for optimal use. - Obtain and submit all test results eit her in person or through the patient portal. - Follow a healthy lifestyle, including good sleep hygiene, to support memory. - Continue with routine daily activities and report any significant changes in memory or cognitive function. - Schedule a follow-up appointment to darlene hutchins lab results and further evaluation. cont all meds This note is constructed using voice recognition software. While every effort has been made to ensure accuracy in brush worker, still errors may have been included Sometimes, these errors may affect the content or meaning of the given sentence . Total time spent caring for the patient today was 40 minutes. This includes time spent before the visit reviewing the chart, time spent during the visit, and time spent after the visit on documentation [facility] Medical History (Updated 10/24/24 @ 15:11 by Jordyn Zuluaga [facility]) PVD (peripheral vascular disease) EPIFANIO (generalized anxiety disorder) Hypercholesterolemia Essential hypertension COVID Encounter to establish care Surgical History History of total knee replacement (TKR) History of left hip replacement History of dental surgery History of back surgery History of hip replacement, total Social History Household Members: Spouse and Family Both parents involved: No Caregiver staying overnight: No Housing: House Are you a primary patient care representative to a significant other at home: No Do you presently have visiting nurse or other home services: No 75 years or older and lives alone: No Alcohol intake: current Alcohol intake frequency: 0-2 drinks per day Alcohol type: wine Patient Tobacco Use Status: Former Tobacco user e-Cigarette/Vaping Use: Never Used Second Hand Smoke Exposure: No service: No Current occupational status: employed 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 1. Little interest or pleasure in doing things: not at all 2. Feeling down, depressed, or hopeless: not at all 3. Trouble falling or staying asleep, or sleeping too much: not at all 4. Feeling tired or having little energy: not at all 5. Poor appetite or overeating: not at all 6. Feeling bad about yourself - or that you are a failure or have let yourself or your family down: not at all 7. Trouble concentrating on things, such as reading the newspaper or watching television: not at all 8. Moving or speaking so slowly that other people could have noticed. Or the opposite - being so fidgety or restless that you have been moving around a lot more than usual: not at all 9. Thoughts that you would be better off or of hurting yourself in some way: not at all Total score: 0 Depression Screening Interpretation: Negative Depression Screening Done: Yes 13864 - PHQ-9 Billing: Yes Source: Developed by Drs. Andrea Jerry, Aliza Banegas, Sarthak Campbell and colleagues, with an educational gucci from [employer] Thrive Questionnaire Date Thrive assessed: 10/23/24 I am a: Patient What is your living situation today?: I have a steady place to live Within the past 12 months, did the food you bought not last and you didn't have the money to get more?: Never true Within the past 12 months, did you worry whether your food would run out before you got money to buy more?: Never true Do you have trouble paying for medicines?: No Do you have trouble getting transportation to medical appointments?: No Do you have trouble paying your heating and electricity bill?: No Do you have trouble taking care of your child, family member or friend?: No Do you have trouble with day-to-day activities such as bathing, preparing meals, shopping, managing finances, etc.?: No Are you currently unemployed and looking for a job?: No Are you interested in more education?: No Please select the resources that you would like help with: None Currently or been in a relationship where the following occur: No concerns reported THRIVE Score: 0 AUDIT C Alcohol Use Questionnaire (AUDIT-C) 1. How often do you have a drink containing alcohol?: 2-3 times a week 2. How many drinks containing alcohol do you have on a typical day when you are drinking?: 1 or 2 3. How often do you have six or more drinks on one occasion?: Weekly Total Score: 6 Score Reviewed/Action Taken: Yes EPIFANIO-7 AMB Questionnaire EPIFANIO-7 Date EPIFANIO - 7 assessed: 10/23/24 Feeling nervous, anxious, or on edge: 0 = Not at all Not being able to stop or control worryin = Not at all Worrying too much about different things: 0 = Not at all Trouble relaxin = Not at all Being so restless that it is hard to sit still: 0 = Not at all Becoming easily annoyed or irritable: 0 = Not at all Feeling afraid as if something awful might happen: 0 = Not at all Total EPIFANIO-7 score (0-4 normal; 5-9 mild; 10-14 moderate; 15-21 severe): 0 Source: Developed by Drs. Andrea Jerry, Aliza Banegas, Sarthak Campbell and colleagues, with an educational gucci from [employer] EPIFANIO-7 Assessment Billing EPIFANIO-7 Assessment Tool: EPIFANIO-7 Assessment 91651 Physical exam (Primary Care) Vital Signs: Last Vital Signs Pulse 71 10/23/24 09:02 Resp 12 10/23/24 09:02 BP 112/64 10/23/24 09:02 Pulse Ox 97 10/23/24 09:02 Oxygen Delivery Method Room Air 10/23/24 09:02 BMI result Body Mass Index 27.0 Tobacco/Smoking Status: Tobacco use Status Tobacco use date assessed 02/25/24 10/23/24 09:05 Patient Tobacco Use Status Former Tobacco user 10/23/24 09:05 e-Cigarette/Vaping Use Never Used 10/23/24 09:05 PHQ-9: PHQ-9 Score PHQ-9: Total score 0 10/23/24 09:07 Depression Screening Interpretation: Negative Thrive Assessment: Date of Thrive Assessment Date Thrive assessed 10/23/24 10/23/24 09:05 Currently or been in a relationship where the following occur: No concerns reported Coding Level of Care Code Est Pt Level 5 (44749) Complex EM visit Add On G2211 Diagnoses Subjective memory complaints R41.89 B12 deficiency E53.8 Essential hypertension I10 Hypercholesterolemia E78.00 Post-menopausal Z78.0 EPIFANIO (generalized anxiety disorder) F41.1 Sensorineural hearing loss (SNHL) of both ears H90.3 Laterality: bilateral Additional Codes EPIFANIO-7 Assessment Billing - EPIFANIO-7 Assessment Tool: EPIFANIO-7 Assessment 05606 ([id number]) PHQ-9 - 96975 - PHQ-9 Billing: Yes ([id number]) Assessment & Plan Assessment & Plan (1) Subjective memory complaints: Code(s): R41.89 - Other symptoms and signs involving cognitive functions and awareness Category: Medical (2) B12 deficiency: Comment: was On sublingual B12 supplement but stopped, We will check labs today. Code(s): E53.8 - Deficiency of other specified B group vitamins Category: Medical (3) Essential hypertension: Comment: Blood pressure at target of less than 130/80 on lisinopril 40 mg continue Code(s): I10 - Essential (primary) hypertension Category: Medical (4) Hypercholesterolemia: Comment: On atorvastatin 40. Managing well without side effects. Lipid panel ordered today. LDL goal less than 70 Code(s): E78.00 - Pure hypercholesterolemia, unspecified Category: Medical (5) Post-menopausal: Comment: Vitamin-D level ordered today. DEXA done June of 2023 and within normal limits. Repeat bone density every 2 years, next due June of 2025 Code(s): Z78.0 - Asymptomatic menopausal state Category: Medical (6) EPIFANIO (generalized anxiety disorder): Comment: Managed well by outside prescriber. On Effexor. Code(s): F41.1 - Generalized anxiety disorder Category: Medical (7) Sensorineural hearing loss: Comment: Audiogram done. Hearing aids Code(s): H90.5 - Unspecified sensorineural hearing loss Category: Medical Qualifiers: Laterality: bilateral Qualified Code(s): H90.3 - Sensorineural hearing loss, bilateral Plan . Orders: Orders Comprehensive [place]. Panel Fast 10/23/24 E53.8 - Deficiency of other specified B group vitamins, E78.00 - Pure hypercholesterolemia, unspecified, I10 - Essential (primary) hypertension, Z78.0 - Asymptomatic menopausal state Microalbumin, Random (w Creat) 10/23/24 E53.8 - Deficiency of other specified B group vitamins, E78.00 - Pure hypercholesterolemia, unspecified, I10 - Essential (primary) hypertension, Z78.0 - Asymptomatic menopausal state UA and rflx microscopic 10/23/24 E53.8 - Deficiency of other specified B group vitamins, E78.00 - Pure hypercholesterolemia, unspecified, I10 - Essential (primary) hypertension, Z78.0 - Asymptomatic menopausal state Complete Blood Count no Diff 10/23/24 E53.8 - Deficiency of other specified B group vitamins, E78.00 - Pure hypercholesterolemia, unspecified, I10 - Essential (primary) hypertension, Z78.0 - Asymptomatic menopausal state Hemoglobin A1c 10/23/24 E53.8 - Deficiency of other specified B group vitamins, E78.00 - Pure hypercholesterolemia, unspecified, I10 - Essential (primary) hypertension, Z78.0 - Asymptomatic menopausal state Lipid Panel 10/23/24 E53.8 - Deficiency of other specified B group vitamins, E78.00 - Pure hypercholesterolemia, unspecified, I10 - Essential (primary) hypertension, Z78.0 - Asymptomatic menopausal state TSH reflex Free T4 10/23/24 E53.8 - Deficiency of other specified B group vitamins, E78.00 - Pure hypercholesterolemia, unspecified, I10 - Essential (primary) hypertension, Z78.0 - Asymptomatic menopausal state Vitamin B12 and Folate 10/23/24 E53.8 - Deficiency of other specified B group vitamins, E78.00 - Pure hypercholesterolemia, unspecified, I10 - Essential (primary) hypertension, Z78.0 - Asymptomatic menopausal state Vitamin D 25-OH Total 10/23/24 E53.8 - Deficiency of other specified B group vitamins, E78.00 - Pure hypercholesterolemia, unspecified, I10 - Essential (primary) hypertension, Z78.0 - Asymptomatic menopausal state Medications: Refilled bupropion HCl XL (Wellbutrin XL) 300 mg PO QAM 90 tabs 1RF
[2024-10-23 09:02] VITALS: BP 112/64; PULSE 71; RESP 12; O2SAT 97; BMI 27.0
== END 2024-10-23 09:35 | disposition home or self-care (01) ==
PROVIDERS: PCP Nurse Practitioner Family; Visit Provider Nurse Practitioner Family
DX: R41.89 Other symptoms and signs involving cognitive functions and awareness (principal); E53.8 Deficiency of other specified B group vitamins; I10 Essential (primary) hypertension; E78.00 Pure hypercholesterolemia, unspecified; Z78.0 Asymptomatic menopausal state; F41.1 Generalized anxiety disorder; H90.3 Sensorineural hearing loss, bilateral

== ENCOUNTER → 2024-10-23 08:57 | Outpatient (BNVA) | payer OTHER, SELFPAY | PROVIDERS: PCP Nurse Practitioner Family; Visit Provider Nurse Practitioner Family | DX: R41.89 Other symptoms and signs involving cognitive functions and awareness (principal); E53.8 Deficiency of other specified B group vitamins; I10 Essential (primary) hypertension; E78.00 Pure hypercholesterolemia, unspecified; F41.1 Generalized anxiety disorder; H90.3 Sensorineural hearing loss, bilateral; Z78.0 Asymptomatic menopausal state; Z79.899 Other long term (current) drug therapy | CPT/HCPCS: 96127 ==

== ENCOUNTER 2025-04-12 11:56 | Outpatient (AMB) | payer OTHER, SELFPAY ==
--- NOTE | 2025-04-12 12:00 | MHC.PC.OV ---
Vital Signs 04/12/25 12:04 Height 5 ft 5 in Weight 160 lb 4 oz BMI 26.7 BP 118/70 Blood Pressure Location Rt brachial Position Sitting Respiration 12 Pulse 70 Pulse Source Pulse Oximeter Temp 97.2 F Temp Source Oral Pulse Oximetry (%) 99 Oxygen Delivery Method Room Air Intake Visit Reasons: Annual PE Intake Note: CPE Airplane Cleaner Required: No Allergies No Known Allergies Allergy (Verified 04/12/25 12:20) Medication List - Last Reconciled 04/12/25 by Jordyn Zuluaga, RVDA MASTER CERTIFIED RV TECHNICIAN- atorvastatin 40 mg PO DAILY bupropion HCl XL (Wellbutrin XL) 300 mg PO QAM cholecalciferol (vitamin D3) 50 mcg PO DAILY lisinopril 40 mg PO DAILY mecobalamin (vitamin B12) 1,000 mcg sublingual BEDTIME multivitamin 1 tab PO DAILY venlafaxine ER 75 mg PO BEDTIME venlafaxine ER 37.5 mg PO BEDTIME zolpidem 5 mg PO BEDTIME PRN Tobacco use date assessed: 04/12/25 Fall risk assessment: No Falls in past year Last assessed Fall Risk: 04/12/25 Dental Screening Dental Screen Date: 04/12/25 Did you have a dental visit in the last 12 months?: Yes Did you have a dental problem in the last 6 months where you did not have access to dental care?: No Was dental information given to patient?: Patient has dentist HPI HPI Comments History of Present Illness Details 70-year-old female with anxiety, vitamin-D deficiency, hyperlipidemia, hypertension, insomnia, rosacea, former smoker, urinary incontinence, B12 deficiency, sensorineural hearing loss bilat, diverticulosis, lipoma R buttocks Surgery: No changes Fhx: brother age 72 in sleep of [place] Social: No changes, , 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 Tdap 2021 Here today for CPE - Presenting with essential hypertension, hyperlipidemia, vitamin D deficiency under medication. - History of major depressive disorder, anxiety, and chronic insomnia managed pharmacologically. - Previous obesity being managed with Wellbutrin, showing weight reduction. - Memory concerns and recent bereavement, attributing symptoms of forgetfulness and distraction. - Long-standing heart murmur with no recent medical evaluation. - Bone density rescheduled in June, no new surgical procedures. HLD on statin LDL > 100 10/2024 Memory - no worse, no better; not taking b12, b12 was normal 10/2024 Reports hx of cardiac murmur, unsure about previous testing or when/where it was done Wonders if this should be evaled HTN at goal on ACEI Optho wears glasses Bilat shoulders bothering her; carrying dog up and down stairs Would like ears looked at. Wearing hearing aides Vit d def on supplement levels wNL Family History - Family history of heart disease, with concerns following the sudden of a brother from a heart condition at age 72. Social History - Recently retired, seeking engagements in volunteer activities to stay occupied. - Noted interest in weight management and physical activity with plans to maintain an active lifestyle. Health Maintenance - Upcoming mammogram and Pap smear as discussed. - Routine cholesterol and kidney function tests in October, indicating slightly elevated LDL at 108. - Discontinuation of B12 supplementation per recent lab results showing normal levels. - Advocated for continued weight management and physical activity. Review of Systems - Cardiovascular: Reports a history of heart murmur. - Neurological: Reports memory concerns. - Psychiatric: Reports anxiety, depression, and insomnia. - Musculoskeletal: Reports carrying heavy items affecting shoulders. Physical Exam General: Well developed, well nourished, in no acute distress. Appears stated age. Head: Normocephalic, atraumatic. Eyes: Pupils are equal, round and reactive to light and accommodation. Conjunctivae are clear. Vision grossly normal. Ears: TMs clear AU, EACS WNL. Nose: Patent, without discharge. Neck: Supple, no adenopathy or thyromegaly. No murmur heard in the neck. Breast: Edu on SBE Lungs: Clear to auscultation bilaterally. No rales, rhonchi or wheeze noted. Good air flow in all puentes. Heart: Regular rate and rhythm. 2/6 murmur. No murmurs heard in the neck. Abdomen: Bowel sounds present in all quadrants. The abdomen is soft, nontender, with no masses or organomegaly noted. No hernias are noted. : Deferred. Reviewed recommendations for routine DIRECTOR MARKETING. Pulses: Peripheral pulses are equal and palpable bilaterally. Extremities: No clubbing, cyanosis nor edema is noted. Neurologic: Gait and station normal. Cranial Nerves 2-12 intact. Motor strength grossly symmetrical and intact. No sensory loss. Balance normal. Skin: No rashes, ulcers, or lesions noted. Turgor is good. Skin color is good. Hair and nails are without abnormalities. Psych: Normal eye contact, affect and mood appropriate, and normal interactions. Patient is alert and appropriate to context. Reports grieving process and some memory concerns, but no significant cognitive deficits noted. Results 10/2024 - Labs: - Slightly elevated LDL at 108. - Normal B12 levels post-discontinuation of supplement. - Tests and Diagnostics: - No recent heart murmur evaluation records in the system. Discussion Notes During the visit, we discussed the patient's comprehensive health concerns. I reviewed and explained the current status of her lab results, particularly her cholesterol levels, and the normal B12 levels after absorbing dietary sources. We talked about her ongoing medication regimen and adjustments, including increasing Wellbutrin for weight management. We examined memory concerns and discussed how grief and ADHD could contribute to perceived forgetfulness. I counseled her on planning continued screenings, such as mammograms and bone density evaluation. We reviewed her heart murmur, planning for potential diagnostics to assess its significance. Additionally, her lifestyle and social health aspects were considered, encouraging volunteer work and physical activity as part of her retired life. Assessment and Plan 1. Essential Hypertension - Continue lisinopril 40 mg daily; monitor BP. 2. Hyperlipidemia - Continue atorvastatin 40 mg daily; advise on diet and exercise. 3. Major Depressive and Anxiety Disorders - Maintain venlafaxine dose; communicate with therapist. 4. Chronic Insomnia - Continue zolpidem 5 mg as needed. 5. Obesity - Increase Wellbutrin to 450 mg; update prescription. 6. Heart Murmur - Investigate previous echo results; potential cardiology review. 7. Memory Concerns - Monitor; continue with therapeutic counseling. Patient Instructions - Keep taking lisinopril, atorvastatin, and Wellbutrin daily as directed. - Ensure mammogram and bone density tests are scheduled. - Discuss heart murmur echo results with doctor when ready. - Increase Wellbutrin to 450 mg with new prescription. - Stay active and maintain regular physical activity. - Report new symptoms or concerns immediately. RTO 6 months routine fu, sooner PRN Consent Patient was informed and verbally consented to the use of an ambient scribe for clinic note documentation during this visit. An additional 30 minutes was spent addressing the problem(s) noted at todays visit. This includes time spent before the visit reviewing the chart, time spent during the visit, and time spent after the visit on documentation reviewing laboratory results, diagnostic imaging, medications, performing a medically necessary evaluation, counseling on diagnoses, care coordination, ordering appropriate tests, ordering appropriate medications, review of tests performed by other providers, reporting test results with the patient, communication with other healthcare providers. [facility] Medical History (Updated 04/12/25 @ 15:17 by Jordyn Zuluaga, [facility]) COVID Encounter to establish care Essential hypertension EPIAFNIO (generalized anxiety disorder) Hypercholesterolemia PVD (peripheral vascular disease) Surgical History History of back surgery History of dental surgery History of hip replacement, total History of left hip replacement History of total knee replacement (TKR) Social History Household Members: Spouse and Family Both parents involved: No Caregiver staying overnight: No Housing: House Are you a primary health care coach to a significant other at home: No Do you presently have visiting nurse or other home services: No 75 years or older and lives alone: No Alcohol intake: current Alcohol intake frequency: 0-2 drinks per day Alcohol type: wine Patient Tobacco Use Status: Former Tobacco user e-Cigarette/Vaping Use: Never Used Second Hand Smoke Exposure: No service: No Current occupational status: employed 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 1. Little interest or pleasure in doing things: not at all 2. Feeling down, depressed, or hopeless: not at all 3. Trouble falling or staying asleep, or sleeping too much: not at all 4. Feeling tired or having little energy: not at all 5. Poor appetite or overeating: not at all 6. Feeling bad about yourself - or that you are a failure or have let yourself or your family down: not at all 7. Trouble concentrating on things, such as reading the newspaper or watching television: not at all 8. Moving or speaking so slowly that other people could have noticed. Or the opposite - being so fidgety or restless that you have been moving around a lot more than usual: not at all 9. Thoughts that you would be better off or of hurting yourself in some way: not at all Total score: 0 Depression Screening Interpretation: Negative Depression Screening Done: Yes 45717 - PHQ-9 Billing: Yes Source: Developed by Drs. Andrea Jerry, Aliza Banegas, Sarthak Campbell and colleagues, with an educational gucci from [employer]. Thrive Questionnaire Date Thrive assessed: 04/12/25 I am a: Patient What is your living situation today?: I have a steady place to live Within the past 12 months, did the food you bought not last and you didn't have the money to get more?: Never true Within the past 12 months, did you worry whether your food would run out before you got money to buy more?: Never true Do you have trouble paying for medicines?: No Do you have trouble getting transportation to medical appointments?: No Do you have trouble paying your heating and electricity bill?: No Do you have trouble taking care of your child, family member or friend?: No Do you have trouble with day-to-day activities such as bathing, preparing meals, shopping, managing finances, etc.?: No Are you currently unemployed and looking for a job?: No Are you interested in more education?: No Please select the resources that you would like help with: None Currently or been in a relationship where the following occur: No concerns reported THRIVE Score: 0 EPIFANIO-7 AMB Questionnaire EPIFANIO-7 Date EPIFANIO - 7 assessed: 04/12/25 Feeling nervous, anxious, or on edge: 0 = Not at all Not being able to stop or control worryin = Not at all Worrying too much about different things: 0 = Not at all Trouble relaxin = Not at all Being so restless that it is hard to sit still: 0 = Not at all Becoming easily annoyed or irritable: 0 = Not at all Feeling afraid as if something awful might happen: 0 = Not at all Total EPIFANIO-7 score (0-4 normal; 5-9 mild; 10-14 moderate; 15-21 severe): 0 Source: Developed by Drs. Andrea Jerry, Aliza Banegas, Sarthak Campbell and colleagues, with an educational gucci from [employer]. EPIFANIO-7 Assessment Billing EPIFANIO-7 Assessment Tool: EPIFANIO-7 Assessment 23199 Physical exam (Primary Care) Vital Signs: Last Vital Signs Temp 97.2 F 04/12/25 12:04 Pulse 70 04/12/25 12:04 Resp 12 04/12/25 12:04 BP 118/70 04/12/25 12:04 Pulse Ox 99 04/12/25 12:04 Oxygen Delivery Method Room Air 04/12/25 12:04 BMI result Body Mass Index 26.7 Tobacco/Smoking Status: Tobacco use Status Tobacco use date assessed 04/12/25 04/12/25 12:03 Patient Tobacco Use Status Former Tobacco user 04/12/25 12:03 e-Cigarette/Vaping Use Never Used 04/12/25 12:03 PHQ-9: PHQ-9 Score PHQ-9: Total score 0 04/12/25 12:22 Depression Screening Interpretation: Negative Thrive Assessment: Date of Thrive Assessment Date Thrive assessed 04/12/25 04/12/25 12:03 Currently or been in a relationship where the following occur: No concerns reported Coding Level of Care Code Est Pt Level 4 (76815) Est Pt Prev Care >65y(17333) Diagnoses Physical exam Z00.00 EPIFANIO (generalized anxiety disorder) F41.1 Essential hypertension I10 PVD (peripheral vascular disease) I73.9 Hypercholesterolemia E78.00 Vitamin D deficiency E55.9 Sensorineural hearing loss (SNHL) of both ears H90.3 Laterality: bilateral Subjective memory complaints R41.89 Insomnia due to other mental disorder F51.05; F99 Insomnia type: due to other mental disorder Additional Codes EPIFANIO-7 Assessment Billing - EPIFANIO-7 Assessment Tool: EPIFANIO-7 Assessment 66357 ([id number]) PHQ-9 - 89228 - PHQ-9 Billing: Yes ([id number]) Assessment & Plan Assessment & Plan (1) Physical exam: Onset Date: ~04/12/25 Comment: Reports due for colonoscopy this 2021. Due every 5 years d/t father hx of colon cancer. Last pap with Dr. Bellamy [facility] at [place]. UTD with eye exam. Reports UTD COVID IZs, shingrix X2, flu. Code(s): Z00.00 - Encounter for general adult medical examination without abnormal findings Category: Medical (2) EPIFANIO (generalized anxiety disorder): Comment: Managed well by outside prescriber. On Effexor. Code(s): F41.1 - Generalized anxiety disorder Category: Medical (3) Essential hypertension: Comment: Blood pressure at target of less than 130/80 on lisinopril 40 mg continue Code(s): I10 - Essential (primary) hypertension Category: Medical (4) PVD (peripheral vascular disease): Comment: Of bilateral lower extremities based on physical exam of decreased pedal pulses, hairless skin. On statin. Was on aspirin for greater than 10 years. Discussion had today and shared decision-making to discontinue after she completes her medication that she has on hand. Code(s): I73.9 - Peripheral vascular disease, unspecified Category: Medical (5) Hypercholesterolemia: Comment: On atorvastatin 40. Managing well without side effects. Lipid panel ordered today. LDL goal less than 70 Code(s): E78.00 - Pure hypercholesterolemia, unspecified Category: Medical (6) Vitamin D deficiency: Comment: On vitamin-D supplementation. Code(s): E55.9 - Vitamin D deficiency, unspecified Category: Medical (7) Sensorineural hearing loss: Comment: Audiogram done. Hearing aids Code(s): H90.5 - Unspecified sensorineural hearing loss Category: Medical Qualifiers: Laterality: bilateral Qualified Code(s): H90.3 - Sensorineural hearing loss, bilateral (8) Subjective memory complaints: Code(s): R41.89 - Other symptoms and signs involving cognitive functions and awareness Category: Medical (9) Insomnia: Comment: Managed by outside prescriber. On Ambien. Code(s): G47.00 - Insomnia, unspecified Category: Medical Qualifiers: Insomnia type: due to other mental disorder Qualified Code(s): F51.05 - Insomnia due to other mental disorder; F99 - Mental disorder, not otherwise specified Plan . Medications: New bupropion HCl XL (Wellbutrin XL) 150 mg PO QAM 90 tabs 2RF Refilled bupropion HCl XL (Wellbutrin XL) 300 mg PO QAM 90 tabs 1RF atorvastatin 40 mg PO DAILY 90 tabs 1RF Patient Instructions: Health screenings for women You should visit your health care provider from time to time, even if you are healthy. The purpose of these visits is to: Screen for medical issues Assess your risk for future medical problems Encourage a healthy lifestyle Update vaccinations and other preventive care services Help you get to know your provider in case of an illness Information Even if you feel fine, you should still see your provider for regular checkups. These visits can help you avoid problems in the future. For example, the only way to find out if you have high blood pressure is to have it checked regularly. High blood sugar and high cholesterol levels also may not have any symptoms in the early stages. A simple blood test can check for these conditions. There are specific times when you should see your provider or receive specific health screenings. The [place] Preventive Services Task Force publishes a list of recommended screenings. Below are screening guidelines for women ages 18 to 39. BLOOD PRESSURE SCREENING Your blood pressure should be checked at least once every 3 to 5 years if: Your blood pressure is in the normal range (top number less than 120 mm Hg and bottom number less than 80 mm Hg) You don't have risk factors for high blood pressure Ask your provider if you need your blood pressure checked more often if: The top number is 120 to 129 mm Hg or the bottom number is 70 to 79 mm Hg You have diabetes, heart disease, kidney problems, are overweight, or have certain other health conditions You have a first-degree relative with high blood pressure You are Black You had high blood pressure during a If the top number is 130 mm Hg or greater or the bottom number is 80 mm Hg or greater, this is considered stage 1 hypertension. Schedule an appointment with your provider to learn how you can reduce your blood pressure. Watch for blood pressure screenings in your area. Ask your provider if you can stop in to have your blood pressure checked. BREAST CANCER SCREENING Experts do not agree about the benefits of breast self-exams in finding breast cancer or saving lives. Talk to your provider about what is best for you. A screening mammogram is not recommended for most women under age 40. Your provider may discuss and recommend mammograms, MRI scans, or ultrasounds if you have an increased risk for breast cancer, such as: A mother or sister who had breast cancer at a young age (most often starting screening earlier than the age the close relative was diagnosed) You carry a high-risk genetic marker CERVICAL CANCER SCREENING Cervical cancer screening should start at age 21 years unless your provider advises otherwise. After the first test: Women ages 21 through 29 should have a Pap test every 3 years. Exoprts do not agree on whether HPV testing is recommended for this age group. Women ages 30 through 65 should be screened with either a Pap test every 3 years or the HPV test every 5 years or both tests every 5 years (called cotesting ). Women who have been treated for precancer (cervical dysplasia) should continue to have Pap tests for 20 years after treatment or until age 65, whichever is longer. If you have had your uterus and cervix removed (total hysterectomy), and you have not been diagnosed with cervical cancer or precancer (high grade cervical neoplasia), you do not need cervical cancer screening. CHOLESTEROL SCREENING Cholesterol screening should begin at: Age 45 for women with no known risk factors for coronary heart disease Age 20 for women with known risk factors for coronary heart disease Repeat cholesterol screening should take place: Every 5 years for women with normal cholesterol levels More often if changes occur in lifestyle (including weight gain and diet) More often if you have diabetes, heart disease, kidney problems, or certain other conditions DIABETES SCREENING You should be screened for diabetes starting at age 35 and then repeated every 3 years if you have no risk factors for diabetes. Screening may need to start earlier and be repeated more often if you have other risk factors for diabetes, such as: You have a first degree relative with diabetes. You are overweight or have obesity. You have high blood pressure, prediabetes, or a history of heart disease. Screening for diabetes should be done if you are planning to become and you are overweight and have other risk factors such as high blood pressure. DENTAL EXAM Go to the dentist once or twice every year for an exam and cleaning. Your dentist will evaluate if you need more frequent visits. EYE EXAM Have an eye exam every 5 to 10 years before age 40. If you have vision problems, have an eye exam every 2 years or more often if recommended by your provider. You should have an eye exam that includes an examination of your retina (back of your eye) at least every year if you have diabetes. IMMUNIZATIONS Commonly needed vaccines include: Flu shot: get one every year. COVID-19 vaccine: ask your provider what is best for you. Tetanus-diphtheria and acellular pertussis (Tdap) vaccine: have one at or after age 19 as one of your tetanus-diphtheria vaccines if you did not receive it as an adolescent. Tetanus-diphtheria: have a booster (or Tdap) every 10 years. Varicella vaccine: receive 2 doses if you never had chickenpox or the varicella vaccine. Hepatitis B vaccine: receive 2, 3, or 4 doses, depending on your exact circumstances. Measles, mumps, and rubella (MMR) vaccine: receive 1 to 2 doses if you are not already immune to MMR. Your provider can tell you if you are immune. Ask your provider about the human papillomavirus (HPV) vaccine if: You have not received the HPV vaccine in the past You have not completed the full vaccine series (you should catch up on this shot) Ask your provider if you should receive other immunizations if you have certain health problems that increase your risk for some diseases such as pneumonia. INFECTIOUS DISEASE SCREENING Women who are sexually active should be screened for chlamydia and gonorrhea up until age 25. Women 25 years and older should be screened for chlamydia and gonorrhea if at high risk. Screening for hepatitis C: All adults ages 18 to 79 should get a one-time test for hepatitis C. people should be screened at every . Screening for human immunodeficiency virus (HIV): All people ages 15 to 65 should get a one-time test for HIV. Depending on your lifestyle and medical history, you may also need to be screened for infections such as syphilis and HIV, as well as other infections. PHYSICAL EXAM All adults should visit their provider from time to time, even if they are healthy. The purpose of these visits is to: Screen for disease Assess your risk of future medical problems Encourage a healthy lifestyle Update your vaccinations and other preventive care services Maintain a relationship with a provider in case of an illness Your height, weight, and BMI should be checked at every exam. During your exam, your provider may ask you about: Depression and anxiety Diet and exercise Alcohol and tobacco use Safety issues, such as using seat belts, smoke detectors, and intimate partner violence Your medicines and risk for interactions SKIN SELF-EXAM Your provider may check your skin for signs of skin cancer, especially if you're at high risk, such as if you: Have had skin cancer before Have close relatives with skin cancer Have a weakened immune system OTHER SCREENING Talk with your provider about colon cancer screening if you have a strong family history of colon cancer or polyps, or if you have had inflammatory bowel disease or polyps yourself. Routine bone density screening of women under 40 is not recommended.
[2025-04-12 12:04] VITALS: BP 118/70; PULSE 70; RESP 12; TEMP 36.2; O2SAT 99; BMI 26.7
--- OUTSIDE RECORDS SUMMARY | 2025-04-12 14:20 | XMS_ITS | Patient Health Record ---
Author Organization [facility] Address [address] [place] [address] Care Team Providers Care Vice President Quality Name Role Phone MD MORENO HOWARD Primary Care Provider Kate Virgen Unavailable [phone] Allergies No Known Allergies Reason For Referral No Information Medications Medication SIG (Take, Route, Frequency, Duration) Notes Start Date End Date Status Atorvastatin Calcium 40 MG TAKE 1 TABLET BY MOUTH EVERYDAY AT BEDTIME Oral; Duration: 90 Active Doxycycline 40 MG TAKE 1 CAPSULE BY [facility] EVERY DAY IN THE MORNING Oral; Duration: 90 Active Zolpidem Tartrate 5 MG (Schedule IV Drug ) TAKE 1 TABLET BY MOUTH ONCE A DAY (AT BEDTIME) NEEDED FOR 30 DAYS Oral; Duration: 30 Active Lisinopril 30 MG 1 tablet Orally Once a day Aries-MJ 01/21/2012 Active Social History Alcohol Screen (Audit-C) Question Answer Notes Did you have a drink contain ing alcohol in the past year? Yes How often did you have a dri nk containing alcohol in the past year? 4 or more times a week (4 points) How many drinks did you have on a typical day when you were drinking in the past year? 1 or 2 drinks (0 point) Points 4 Interpretation Positive Problems Problem Type SNOMED Code ICD Code Onset Dates Problem Status W/U Status Risk Notes Problem Postmenopausal atrophic vaginitis (37349511) Postmenopausal atrophic vaginitis (N95.2) Active confirmed Problem Essential hypertension (51641985) Essential (primary) hypertension (I10) Active confirmed Problem Depressive disorder (42059135) Depressive disorder, not elsewhere classified (311) Active confirmed Diag Problem Chronic pain (53361689) Other chronic pain (338.29) Active confirmed Major Problem Acute bronchitis (19154144) Acute bronchitis (466.0) Active confirmed Diag Problem Menopausal symptom (55800178) Symptomatic menopausal or female climacteric states (627.2) Active confirmed Major Problem Backache (402451736) Unspecified backache (724.5) Active confirmed Major Problem Cervicalgia (24393907) Cervicalgia (723.1) Active confirmed Diag Problem Gynecological examination normal (798215704384018) Routine gynecological examination (V72.31) Active confirmed Major Problem Screening for malignant neoplasm of colon (448946735) Special screening for malignant neoplasms, colon (V76.51) Active confirmed Major Plan Of Treatment Pending Test Test Name Order Date MAMMOGRAM, SCREENING 09/11/2015 MAMMOGRAM, SCREENING 01/15/2021 BONE DENSITY 01/15/2021 MM Digital Mammo Screening 09/11/2015 MM Digital Mammo Screening 01/15/2021 Insurance Providers Payer Name Payer Address Payer Phone Subscriber Number Group Number Insured Name Patient Relationship to Insured Coverage Start Date Coverage End Date [facility] [address] [place] [address] [id number] STACIA CABELLO Spouse - patient is the spouse of the insured Medical (General) History Medical History History ICD Code Major depressive disorder, single episod e, unspecified F32.9 Cervicalgia M54.2 Other dorsalgia M54.89 Menopausal and female climacteric states N95.1 Postmenopausal atrophic vaginitis N95.2 Essential (primary) hypertension I10 Surgical History Surgery Date(Month/Year) Colonoscopy Right Breast Lumpectomy Hip Surgery 2016 Back Surgery 2016 Hospitalization History Reason Date(Month/Year) 2 Vaginal Deliveries See Surgical Hx
== END 2025-04-12 12:56 | disposition home or self-care (01) ==
LOC: HO.HMCFM 11:57
PROVIDERS: PCP Nurse Practitioner Family; Visit Provider Nurse Practitioner Family
DX: Z00.00 Encounter for general adult medical examination without abnormal findings (principal); I10 Essential (primary) hypertension; F41.1 Generalized anxiety disorder; I73.9 Peripheral vascular disease, unspecified; E78.00 Pure hypercholesterolemia, unspecified; E55.9 Vitamin D deficiency, unspecified; H90.3 Sensorineural hearing loss, bilateral; R41.89 Other symptoms and signs involving cognitive functions and awareness; F51.05 Insomnia due to other mental disorder; F99 Mental disorder, not otherwise specified

== ENCOUNTER → 2025-04-12 11:56 | Outpatient (BNVA) | payer OTHER, SELFPAY | PROVIDERS: PCP Nurse Practitioner Family; Visit Provider Nurse Practitioner Family | DX: Z00.00 Encounter for general adult medical examination without abnormal findings (principal); F41.1 Generalized anxiety disorder; E55.9 Vitamin D deficiency, unspecified; E78.5 Hyperlipidemia, unspecified; I10 Essential (primary) hypertension; G47.00 Insomnia, unspecified; R32 Unspecified urinary incontinence; K57.90 Diverticulosis of intestine, part unspecified, without perforation or abscess without bleeding; F32.9 Major depressive disorder, single episode, unspecified; F51.04 Psychophysiologic insomnia; E66.9 Obesity, unspecified; R01.1 Cardiac murmur, unspecified; I73.9 Peripheral vascular disease, unspecified; E78.00 Pure hypercholesterolemia, unspecified; H90.3 Sensorineural hearing loss, bilateral; R41.89 Other symptoms and signs involving cognitive functions and awareness; F51.05 Insomnia due to other mental disorder; Z87.891 Personal history of nicotine dependence | CPT/HCPCS: 96127 ==

== ENCOUNTER 2025-08-27 14:09 | Outpatient (AMB) | payer OTHER, SELFPAY ==
--- NOTE | 2025-08-27 14:09 | AM.OFFVISNUR ---
Intake Visit Reasons: flu shot Allergies No Known Allergies Allergy (Verified 04/12/25 12:20) Office Procedures Flu Questionnaire Does the patient have a severe egg allergy?: No Does the patient have severe life threatening allergies?: No Does the patient have a fever or illness today?: No Has the patient ever had Guillain-Floyd Syndrome?: No Has the patient ever had any past reaction to a flu shot?: No Immunizations Fluarix [id number] (PF) 45 mcg (15 mcg x 3)/0.5 mL IM syringe Performing Provider: MONTSE BoycePMitul Performing Location: [facility] Administered by: Luis Brown RN on 08/27/25 14:09 Dose Route Admin Location Dispensed Lot Number Expiration Date [facility] Engineering Specialist Technician 0.5 mL IM Left Deltoid 0.5 mL [id number] 04/16/26 31580-327-34 [employer] VIS Given Date VIS Provided VIS Publication Date 08/27/25 Single Vaccine 24 Eligibility Eligibility Date Funding Source Not [facility] Eligible 08/27/25 Private Assessment & Plan Assessment & Plan Orders: Orders Influenza [id number] Immunization Today Z23 - Encounter for immunization Coding
--- OUTSIDE RECORDS SUMMARY | 2025-08-27 16:29 | XMS_ITS | Encounter Summary ---
Author Organization [facility] Address [address] [place] [address] Phone Care Team Providers Care Ambulette Driver Name Role Phone Nicola Tello MD Primary Care Provider [phone] Encounter Details Date Type Department Care Team (Late st Contact Info) Description 12/22/2017 Ancillary Orders [facility] Orthopedics & Sports Medicine [address] [place] [address] Sandra Degroot PA-C [address] [place] [address] Orthopedics & Sports Medicine, [facility] [place] [address] [email or web address] Social History Tobacco Use Types Packs/Day Years Used Date Smoking Tobacco: Never Assessed Comments Unknown Sex and Gender Information Value Date Recorded Sex Assigned at Not on file Legal Sex Female 9:56 PM EDT Gender Identity Not on file Sexual Orientation Not on file documented as of this encounter Plan of Treatment Not on file documented as of this encounter Visit Diagnoses Not on filedocumented in this encounter Care Teams Ambulette Driver Relationship Specialty Start Date End Date Nicola Tello MD [address] [place] [address] [email or web address] PCP - General 10/21/17 documented as of this encounter Additional Source Comments The information contained in this document represents components of the legal health record. It is not the complete legal health record.[facility]
--- OUTSIDE RECORDS SUMMARY | 2025-08-27 16:29 | XMS_ITS | Encounter Summary ---
Author Organization [facility] Address [address] [place] [address] Phone Care Team Providers Care Strategic Client Executive Name Role Phone Nicola Tello MD Primary Care Provider [phone] Encounter Details Date Type Department Care Team (Late st Contact Info) Description 12/22/2017 Ancillary Orders [address] [address] Sandra Degroot PA-C [address] [place] [address] Orthopedics & Sports Medicine, [place] [address] [email or web address] Right hip pain Social History Tobacco Use Types Packs/Day Years Used Date Smoking Tobacco: Never Assessed Comments Unknown Sex and Gender Information Value Date Recorded Sex Assigned at Not on file Legal Sex Female 9:56 PM EDT Gender Identity Not on file Sexual Orientation Not on file documented as of this encounter Plan of Treatment Not on file documented as of this encounter Results * XR HIP 2 VW RIGHT PLUS PELVIS (12/24/2017 8:25 AM EST) Narrative Judith Hull - 12/24/2017 8:25 AM EST This image report has been auto-finalized and has not been read by a Radiologist. Interpretation has been included in the provider encounter note for this date of service. Sandra Degroot PA-C IMG XR PELVIS Final Re sult documented in this encounter Visit Diagnoses Diagnosis Right hip pain Pain in joint, pelvic region and thigh Right hip pain Pain in joint, pelvic region and thigh documented in this encounter Care Teams Strategic Client Executive Relationship Specialty Start Date End Date Nicola Tello MD [address] [place] [address] [email or web address] PCP - General 10/21/17 documented as of this encounter Additional Source Comments The information contained in this document represents components of the legal health record. It is not the complete legal health record.[facility]
--- OUTSIDE RECORDS SUMMARY | 2025-08-27 16:29 | XMS_ITS | Clinical Summary ---
Author Organization [facility] Address [address] [place] [address] Phone Care Team Providers Care Locker Operator Name Role Phone ChrisJordyn Lagos EAGLE Primary Care Provider Encounters Date Type Department Care Team Description 06/26/2025 10:11 AM EDT - 06/26/2025 11:59 PM EDT Hospital Encounter [facility] [address] [place] [address] Encounter for screening mammogram for malignant neoplasm of breast Discharge Disposition: Home or Self Care from Last 3 Months Surgical History Surgery Date Site/Laterality Comments STEREOTACTIC CORE BIOPSY Medical History Medical History Date Comments Cholesterol blood decreased DX:C holesterol blood decreased Hypertension DX:Hypertension Social History Tobacco Use Types Packs/Day Years Used Date Smoking Tobacco: Never Smokeless Tobacco: Never Comments No Sex and Gender Information Value Date Recorded Sex Assigned at Not on file Legal Sex Female 6:36 AM EST Gender Identity Not on file Sexual Orientation Not on file Obstetrics History Para Term AB IAB SAB Ectopic Multiple Livin g Live Births 2 Last Filed Vital Signs Vital Sign Reading Time Taken Comments Blood Pressure - - Pulse - - Temperature - - Respiratory Rate - - Oxygen Saturation - - Inhaled Oxygen Concentration - - Weight 70.3 kg (155 lb) 06/26/2025 10:19 AM EDT Height 152.4 cm (5') 06/26/2025 10:19 AM EDT Body Mass Index 30.27 06/26/2025 10:19 AM EDT Plan of Treatment Health Maintenance Due Date Last Done Comments Colorectal Cancer Screening: Colonoscopy 1955 Cholesterol Screening (Lipid Panel) 09/26/2022 Falls Risk Assessment 09/26/2022 Hepatitis C Screening 09/26/2022 Social Influencers of Health Screening 09/26/2022 Hypertension/CHF/CAD Annual BMP Blood Test 10/08/2022 Depression Screening 10/18/2024 COVID-19 Vaccine ( season) 2025 10/03/2023, 08/15/2022, 07/30/2021, Additional history exists Influenza Vaccine (#1) 2025 5, 10/03/2023, 08/19/2022, Additional history exists Breast Cancer Screening 06/26/2027 06/26/20 25, 06/22/2023, 06/18/2022, Additional history exists DTaP,Tdap,and Td Vaccines (2 - Td or Tdap) 08/19/2032 08/19/2022 Osteoporosis Screening (Bone Density Screening) 06/22/2033 06/22/2023, 02/06/2021 Zoster Vaccines Completed 09/09/2020, 06/14/2020 Pneumococcal Vaccine: 50+ Years Completed 08/15/2022 RSV Immunization Adult Patients Completed 10/03/2023 HIB Vaccines Aged Out No longer eligi ble based on patient's age to complete this topic HPV Vaccines Aged Out No longer eligi ble based on patient's age to complete this topic Hepatitis A Vaccines Aged Out No long er eligible based on patient's age to complete this topic Hepatitis B Vaccines Aged Out No long er eligible based on patient's age to complete this topic IPV Vaccines Aged Out No longer eligi ble based on patient's age to complete this topic MMR Vaccines Aged Out No longer eligi ble based on patient's age to complete this topic Meningococcal ACWY Vaccine Aged Out N o longer eligible based on patient's age to complete this topic Meningococcal B Vaccine Aged Out No l onger eligible based on patient's age to complete this topic RSV Immunization Patients Under 20 months Aged Out No longer eligible based on patient's age to complete this topic Varicella Vaccines Aged Out No longer eligible based on patient's age to complete this topic Procedures Procedure Name Priority Date/Time Associated Diagnosis Comments MG MAMMO DIGITAL SCREENING W UDAY BILAT Routine 06/26/2025 10:28 AM EDT Encounter for screening mammogram for malignant neoplasm of breast PRIYANK DEXA AXIAL SKELETON Routine 06/22/2023 3:40 PM EDT Encounter for screening for osteoporosis from Last 3 Months or Most Recently Relevant to Health Maintenance Results * MG Mammo Digital Screening w Uday bilat (06/26/2025 10:28 AM EDT) Anatomical Region Laterality Modality Breast Bilateral Mammography 06/26/2025 10:4 9 AM EDT Impressions 06/26/2025 10:52 AM EDT No mammographic evidence of malignancy. A negative mammogram in the presence of a clinically suspicious palpable abnormality does not preclude the possibility of malignancy or alter the indications for biopsy. PQRI CPT II 3341F Code 74392, 29184 PQRI 225 CPT II 7025F TISSUE DENSITY: The breasts are almost entirely fatty. (BI-RADS Category A) IMPRESSION: Benign. BI-RADS CATEGORY: 1 - NEGATIVE RECOMMENDATION: Screening bilateral mammogram is recommended in 1 year. Mammo Location: [facility], [address] [place] [address] -------- FINAL REPORT -------- Dictated By: Cleveland Lundberg Dictated Date: 06/26/2025 10:49 ET Assigned Physician: Cleveland Lundberg Reviewed and Electronically Signed By: Cleveland Lundberg Signed Date: 06/26/2025 10:52 ET Workstation ID: [id number] Transcribed By: Self Edit Transcribed Date: 06/26/2025 10:49 ET Narrative 06/26/2025 10:52 AM EDT CLINICAL: The patient is a 70 years Female presenting for routine screening mammography. COMPARISON: Most recently 06/22/2023 and most remotely 11/11/2015. TECHNIQUE: Full-field digital mammography of the breasts bilaterally consisting of tomosynthesis in MLO and CC projection is performed in the [employer] 2000-D unit. Computer aided detection utilizing the iCAD system was utilized. FINDINGS: The breasts are again seen to be largely fatty replaced. There is no cluster of microcalcifications, mass, or area of architectural distortion. There is no skin thickening or nipple retraction. Procedure Note Cleveland Lundberg MD - 06/26/2025 CLINICAL: The patient is a 70 years Female presenting for routinescreening mammography. COMPARISON: Most recently 06/22/2023 and most remotely 11/11/2015. TECHNIQUE: Full-field digital mammography of the breasts bilaterallyconsisting of tomosynthesis in MLO and CC projection is performed in the[employer] 2000-D unit. Computer aided detection utilizing the [employer] was utilized. FINDINGS: The breasts are again seen to be largely fatty replaced. Thereis no cluster of microcalcifications, mass, or area of architecturaldistortion. There is no skin thickening or nipple retraction. IMPRESSION: No mammographic evidence of malignancy. A negative mammogram in the presence of a clinically suspicious palpableabnormality does not preclude the possibility of malignancy or alter theindications for biopsy. PQRI CPT II 3341F Code 14033, 73884 PQRI 225 CPT II 7025F TISSUE DENSITY: The breasts are almost entirely fatty. (BI-RADS CategoryA) IMPRESSION: Benign. BI-RADS CATEGORY: 1 - NEGATIVE RECOMMENDATION: Screening bilateral mammogram is recommended in 1 year. Mammo Location: [facility], [address] [place] [address] -------- FINAL REPORT -------- Dictated By: Cleveland Lundberg Dictated Date: 06/26/2025 10:49 ET Assigned Physician: Cleveland Lundberg Reviewed and Electronically Signed By: Cleveland Lundberg Signed Date: 06/26/2025 10:52 ET Workstation ID: [id number] Transcribed By: Self Edit Transcribed Date: 06/26/2025 10:49 ET us Jordyn Zuluaga PROTECTION MGR IMG BI PROCEDURES Final Res ult * PRIYANK DEXA AXIAL SKELETON (06/22/2023 3:40 PM EDT) Anatomical Region Laterality Modality Mammography 06/22/2023 10:3 8 AM EDT Narrative 06/22/2023 3:40 PM EDT [facility] Diagnostic Imaging Department [address] [place] [address] Patient: GEORGI PHELPS Vandana /Age/Sex: 1955 - 68 - F Unit#: [id number] Location/Status: SPDIMAM/REG CLI Mnemonic/Ordering Site: MAMDEXAAX/SPMAM Ordering Physician: AZ ZALDIVAR Priyank Dexa Axial Skeleton - 06/22/23 - 3490 Report Status:Signed History: Low estrogen state due to menopause. Bilateral hip replacements. Comparison: 02/06/21 Findings: Bone densitometry is performed utilizing dual energy x-ray absorptiometry (DXA) in the [employer] unit. The lumbar spine is evaluated in the AP projection. The results indicate normal bone mineral density, with a lumbar spine T-score of 1.5. The Z score is 2.6, indicating bone mineral density well above the range of normal for age. There has been no statistically significant change. The detailed DEXA report will be mailed to the referring physician's office. IMPRESSION: Normal bone mineral density based on lumbar spine only analysis. No significant change. [id number] Dictating Physician: JESSICA WELCH MD Electronically Signed by: JESSICA WELCH MD Dic Date/Time: 06/22/23 153 Sign date/Time: 06/22/23 1540 Procedure Note Jessica Welch MD - 11/23/2023 [facility] Diagnostic Imaging Department [address] [place] [address] Patient: GEORGI PHELPS /Age/Sex: 1955 - 68 - F Unit#: [id number] Location/Status: SPDIMAM/REG CLI Mnemonic/Ordering Site: MAMDEXAAX/SPMAM Ordering Physician: AZ ZALDIVAR Priyank Dexa Axial Skeleton - 06/22/23 - 2719 Report Status:Signed History: Low estrogen state due to menopause. Bilateral hipreplacements. Comparison: 02/06/21 Findings: Bone densitometry is performed utilizing dual energy x-ray absorptiometry(DXA) in the [employer] unit. The lumbar spine is evaluated in the APprojection. The results indicate normal bone mineral density, with a lumbar spineT-score of 1.5. The Z score is 2.6, indicating bone mineral density well above therange of normal for age. There has been no statistically significant change. The detailed DEXAreport will be mailed to the referring physician's office. IMPRESSION: Normal bone mineral density based on lumbar spine only analysis. Nosignificant change. [id number] Dictating Physician: JESSICA WELCH MD Electronically Signed by: JESSICA WELCH MD Dic Date/Time: 06/22/23 1539 Sign date/Time: 06/22/23 1540 Az Zaldivar ELECTRIC BLASTING CAP ASSEMBLER IMG BI PROCEDURES Final Result from Last 3 Months or Most Recently Relevant to Health Maintenance Insurance MEDICARE [facility] Care Teams Locker Operator Relationship Specialty Start Date End Date Jordyn Zuluaga FNP [address] [place] [address] [place] [phone] PCP - General Nurse Practitioner 06/26/25
--- OUTSIDE RECORDS SUMMARY | 2025-08-27 16:29 | XMS_ITS | Clinical Summary ---
Author Organization [facility] Address [address] [place] [address] Phone Care Team Providers Care Tax Analyst Name Role Phone Nicola Tello MD Primary Care Provider [phone] Allergies No known active allergies Medications zolpidem (AMBIEN) 5 MG tablet every evening. 06/29/2016 Active atorvastatin (LIPITOR) 40 MG tablet daily. 05/29/2016 Active lisinopril (PRINIVIL,ZESTRI L) 20 MG tablet daily. 06/29/2016 Act fausto aspirin 325 MG tablet Take 325 mg by mouth daily. Active doxycycline hyclate (VIBRAMYCIN) 50 MG capsule TAKE 1 CAP BY MOUTH 2 TIMES DAILY FOR 90 DAYS. 4 02/02/2018 Active Active Problems Problem Noted Date Diagnosed Date Right hip pain 02/24/2018 Family History Medical History Relation Comments No Known Problems Brother No Known Problems Father No Known Problems Maternal Aunt No Known Problems Maternal Grandfather No Known Problems Maternal Grandmother No Known Problems Maternal Uncle No Known Problems Mother No Known Problems Paternal Aunt No Known Problems Paternal Grandfather No Known Problems Paternal Grandmother No Known Problems Paternal Uncle No Known Problems Sister Relation Status Comments Brother Father Maternal Aunt Maternal Grandfather Maternal Grandmother Maternal Uncle Mother Paternal Aunt Paternal Grandfather Paternal Grandmother Paternal Uncle Sister Social History Tobacco Use Types Packs/Day Years Used Date Smoking Tobacco: Never Smokeless Tobacco: Never Alcohol Use Standard Drinks/Week Comments Yes 0 (1 standard drink = 0.6 oz pur e alcohol) Education Answer Date Recorded Are you interested in more education? Not on ojhnnie e 02/12/2023 Are you concerned about learning? Not on file 02/12/2023 No 02/12/2023 No 02/12/2023 Digital Access Answer Date Recorded No 03/13/2023 No 03/13/2023 Reliable internet access at home? Not on file 03/13/2023 Device with a working camera? Not on file Comments Unknown Sex and Gender Information Value Date Recorded Sex Assigned at Not on file Legal Sex Female 9:56 PM EDT Gender Identity Not on file Sexual Orientation Not on file Last Filed Vital Signs Vital Sign Reading Time Taken Comments Blood Pressure 171/72 09/02/2016 4:23 AM EST Pulse 71 09/02/2016 4:23 AM EST Temperature - - Respiratory Rate - - Oxygen Saturation - - Inhaled Oxygen Concentration - - Weight 84.4 kg (186 lb) 12/16/2018 1:58 PM EST Height 163.8 cm (5' 4.49 ) 02/25/2018 9:13 AM ED T Body Mass Index 31.45 02/25/2018 9:13 AM EDT Plan of Treatment Health Maintenance Due Date Last Done Comments Adult Td,Tdap Booster 1955 CREATININE LEVEL 1955 LIPID PANEL 1955 POTASSIUM LEVEL 1955 DEPRESSION SCREENING 1967 HEPATITIS C SCREENING 1973 MAMMOGRAM 1995 COLOGUARD 01/19/2000 COLONOSCOPY 01/19/2000 COLORECTAL CANCER SCREENING 01/19/2000 FIT TEST 01/19/2000 FOBT 01/19/2000 SIGMOIDOSCOPY 01/19/2000 VIRTUAL COLONOSCOPY 01/19/2000 PNEUMOCOCCAL VACCINES (50+ years) (1 of 1 - PCV) 2005 OSTEOPOROSIS SCREENING INITI AL (ONE-TIME) 01/19/2020 ZOSTER VACCINES (2 of 2) 11/04/2020 09/09/2020 INFLUENZA VACCINE (#1) 2025 07/22/2019 COVID-19 VACCINE (3 - 2024-2 6 season) 2025 01/20/2021, 12/30/2020 RSV VACCINE (1 - 1-dose 75+ series) 2030 SMOKING STATUS SCREENING (On ce After 26 Yrs) Completed 12/16/2018 HEPATITIS A VACCINES Aged Out No long er eligible based on patient's age to complete this topic HIB VACCINES Aged Out No longer eligi ble based on patient's age to complete this topic MENINGOCOCCAL VACCINES (ACWY) Aged Out No longer eligible based on patient's age to complete this topic MENINGOCOCCAL VACCINES (B) Aged Out N o longer eligible based on patient's age to complete this topic Medical Devices Not on file [place] [address] [place] [address] [place] [address] [place] [address] [place] [address] [place] [address] [place] [address] [place] [address] [place] [address] [place] [address] [place] [address] [place] [address] PPO EPO Care Teams Tax Analyst Relationship Specialty Start Date End Date Nicola Tello MD [address] [place] [phone] [email or web address] PCP - General 10/21/17 Additional Source Comments The information contained in this document represents components of the legal health record. It is not the complete legal health record.[facility]
== END 2025-08-27 14:10 | disposition home or self-care (01) ==
LOC: HO.HMCFM 14:09
PROVIDERS: PCP Nurse Practitioner Family; Visit Provider Nurse Practitioner Family
DX: Z23 Encounter for immunization (principal)

== ENCOUNTER → 2025-08-27 14:09 | Outpatient (BNVA) | payer OTHER, SELFPAY | PROVIDERS: PCP Nurse Practitioner Family; Visit Provider Nurse Practitioner Family | DX: Z23 Encounter for immunization (principal) | CPT/HCPCS: 90471; 90656 ==

== ENCOUNTER 2025-08-31 15:24 | Outpatient (AMB) | payer OTHER, SELFPAY ==
--- NOTE | 2025-08-31 15:29 | A.OFFPC_ITS ---
Vital Signs 08/31/25 15:31 Height 5 ft 5 in Weight 164 lb BMI 27.3 BP 116/70 Blood Pressure Location Lt brachial Position Sitting Respiration 14 Pulse 73 Pulse Source Pulse Oximeter Temp 98.5 F Temp Source Oral Pulse Oximetry (%) 99 Oxygen Delivery Method Room Air Intake Visit Reasons: Right Shoulder Rotator repair on 09/12 Intake Note: Preop for right shoulder repair Allergies No Known Allergies Allergy (Verified 04/12/25 12:20) Tobacco use date assessed: 08/31/25 Dental Screening Dental Screen Date: 04/12/25 HPI HPI Comments History of Present Illness Details 70-year-old female with pmh hypertension , hyperlipidemia, anxiety, vitamin-D deficiency, insomnia, UI presenting for preoperative clearance. She is scheduled for right shoulder surgery on 09/12/[address] Estrella No issues with anesthesia in the past No chest pain. No exertional dyspnea Can walk 1/4 mile, do housework without difficulty. No known KADEN. No loose teeth or crowns. CV: Blood pressure is stable on lisinopril. BH: Stable on current medications MSK: Right shoulder pain. Currently on meloxicam. History of bilateral hip replacement, right knee replacement She tells me she had labs within the last year at [facility] and does not believe she has to have labs prior to surgery. She is going to inquire with surgery. Labs are ordered. ROS CONSTITUTIONAL: Denies weight loss, fever and chills. HEENT: Denies changes in vision and hearing. RESPIRATORY: Denies SOB and cough. CV: Denies palpitations and CP GI: Denies abdominal pain, nausea, vomiting and diarrhea. : Denies dysuria and urinary frequency. MSK: Denies new myalgia and joint pain. SKIN: Denies rash and pruritus. NEUROLOGICAL: Denies headache PSYCHIATRIC: Denies recent changes in mood. PHYSICAL EXAM: GENERAL: Alert and oriented x 3. NAD EYES: EOMI. Anicteric. HENT: Moist mucous membranes. No scleral icterus. No cervical lymphadenopathy. LUNGS: Clear to auscultation bilaterally. CARDIOVASCULAR: Regular rate and rhythm. No murmur. No JVD. ABDOMEN: Soft, non-tender +bs EXTREMITIES: No edema. Non-tender. SKIN: No rashes or lesions. Warm. NEUROLOGIC: No focal neurological deficits. CN II-XII grossly intact PSYCHIATRIC: Cooperative. Appropriate mood and affect [facility] Medical History PVD (peripheral vascular disease) EPIFANIO (generalized anxiety disorder) Hypercholesterolemia Essential hypertension COVID Encounter to establish care Surgical History History of total knee replacement (TKR) History of left hip replacement History of dental surgery History of back surgery History of hip replacement, total Social History Household Members: Spouse and Family Both parents involved: No Caregiver staying overnight: No Housing: House Are you a primary field care manager to a significant other at home: No Do you presently have visiting nurse or other home services: No 75 years or older and lives alone: No Alcohol intake: current Alcohol intake frequency: 0-2 drinks per day Alcohol type: wine Patient Tobacco Use Status: Former Tobacco user e-Cigarette/Vaping Use: Never Used Second Hand Smoke Exposure: No service: No Current occupational status: employed 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 Cognitive needs: No Hearing needs: No Vision needs: Yes (glasses) Questionnaire Thrive Questionnaire Date Thrive assessed: 10/23/24 I am a: Patient What is your living situation today?: I have a steady place to live Within the past 12 months, did the food you bought not last and you didn't have the money to get more?: Never true Within the past 12 months, did you worry whether your food would run out before you got money to buy more?: Never true Do you have trouble paying for medicines?: No Do you have trouble getting transportation to medical appointments?: No Do you have trouble paying your heating and electricity bill?: No Do you have trouble taking care of your child, family member or friend?: No Do you have trouble with day-to-day activities such as bathing, preparing meals, shopping, managing finances, etc.?: No Are you currently unemployed and looking for a job?: No Are you interested in more education?: No Please select the resources that you would like help with: None Currently or been in a relationship where the following occur: No concerns reported THRIVE Score: 0 EPIFANIO-7 AMB Questionnaire EPIFANIO-7 Date EPIFANIO - 7 assessed: 04/12/25 Source: Developed by Drs. Andrea Jerry, Aliza Banegas, Sarthak Campbell and colleagues, with an educational gucci from [employer]. Physical exam (Primary Care) Vital Signs: Last Vital Signs Temp 98.5 F 08/31/25 15:31 Pulse 73 08/31/25 15:31 Resp 14 08/31/25 15:31 BP 116/70 08/31/25 15:31 Pulse Ox 99 08/31/25 15:31 Oxygen Delivery Method Room Air 08/31/25 15:31 BMI result Body Mass Index 27.3 Tobacco/Smoking Status: Tobacco use Status Tobacco use date assessed 08/31/25 08/31/25 15:37 Patient Tobacco Use Status Former Tobacco user 08/31/25 15:30 e-Cigarette/Vaping Use Never Used 08/31/25 15:30 Thrive Assessment: Date of Thrive Assessment Date Thrive assessed 10/23/24 08/31/25 15:30 Currently or been in a relationship where the following occur: No concerns reported Coding Level of Care Code Est Pt Level 4 (47472) Complex EM visit Add On G2211 Diagnoses Preoperative cardiovascular examination Z01.810 Essential hypertension I10 Right shoulder pain, unspecified chronicity M25.511 Chronicity: unspecified Assessment & Plan Assessment & Plan (1) Preoperative cardiovascular examination: Code(s): Z01.810 - Encounter for preprocedural cardiovascular examination (2) Essential hypertension: Comment: Blood pressure at target of less than 130/80 on lisinopril 40 mg continue Code(s): I10 - Essential (primary) hypertension Category: Medical (3) Right shoulder pain: Code(s): M25.511 - Pain in right shoulder Qualifiers: Chronicity: unspecified Qualified Code(s): M25.511 - Pain in right shoulder Plan 70 year old female presenting for preoperative cardiac exam RCRI 0 METS>/= 4 EKG normal This is an average risk patient for proposed intermediate risk surgery. She can proceed with planned surgery without further cardiac testing. Did remind patient to stop meloxicam 7-10 days prior to procedure Advised paitent to reach out to surgeons office to see if they need updated labs Orders: Orders Prothrombin Time INR Today Z01.810 - Encounter for preprocedural cardiovascular examination Partial Thromboplastin Time Today Z01.810 - Encounter for preprocedural cardiovascular examination Comprehensive Met. Panel Today Z01.810 - Encounter for preprocedural cardiovascular examination Complete Blood Count Auto Diff Today Z01.810 - Encounter for preprocedural cardiovascular examination
[2025-08-31 15:31] VITALS: BP 116/70; PULSE 73; RESP 14; TEMP 36.9; O2SAT 99; BMI 27.3
--- OUTSIDE RECORDS SUMMARY | 2025-09-01 00:22 | XMS_ITS | Encounter Summary ---
Author Organization [facility] Address [address] [place] [address] Phone Care Team Providers Care Program Consultant Name Role Phone Nicola Tello MD Primary Care Provider [phone] Encounter Details Date Type Department Care Team (Late st Contact Info) Description 12/22/2017 Ancillary Orders [facility] Medicine [address] [place] [address] Sandra Degroot PA-C [address] [place] [address] Orthopedics & Sports Medicine, [facility] [place] [address] [email or web address] Social History Tobacco Use Types Packs/Day Years [...] on filedocumented in this encounter Care Teams Program Consultant Relationship Specialty Start Date End Date Nicola Tello MD [address] [place] [address] [email or web address] PCP - General 10/21/17 documented as of this encounter Additional Source Comments The information contained in this document represents components of the legal health record. It is not the complete legal health record.[facility]
--- OUTSIDE RECORDS SUMMARY | 2025-09-01 00:23 | XMS_ITS | Clinical Summary ---
Author Organization [facility] Address [address] [place] [address] Phone Care Team Providers Care Financial Reporting Manager Name Role Phone Nicola Tello MD Primary Care Provider Allergies No known active allergies Medications zolpidem [...] you interested in more education? Not on johnnie e 02/12/2023 Are you concerned about learning? [...] patient's age to complete this topic IPV VACCINES Aged Out No longer eligi ble based on patient's age to complete this topic MENINGOCOCCAL VACCINES (ACWY) Aged Out No longer eligible based on patient's age to complete this topic MENINGOCOCCAL VACCINES (B) Aged Out N o longer eligible based on patient's age to complete this topic Medical Devices Not on file [place] [address] [place] [address] [place] [address] [place] [address] PPO EPO [facility] [place] [address] [place] [address] [place] [address] [place] [address] [place] [address] [place] [address] [address] [place] [address] [address] [place] [address] PPO EPO Member Subscriber Plan / Payer (Ef fective 2015-Present) Name:Georgi Cabello Member ID:[id number] Relation to Subscriber:Self Name:GEORGI CABELLO Subscriber ID:[id number] Payer ID:[id number] (NAIC) Type:PPO Address: [facility] [id number] [place] [id number] Care Teams Financial Reporting Manager Relationship Specialty Start Date End Date Nicola Tello MD [address] [place] [phone] [email or web address] PCP - General 10/21/17 Additional Source Comments The information contained in this document represents components of the legal health record. It is not the complete legal health record.[facility]
--- OUTSIDE RECORDS SUMMARY | 2025-09-01 00:24 | XMS_ITS | Encounter Summary ---
Author Organization [facility] Address [address] [place] [address] Phone Care Team Providers Care Heliarc Welder Name Role Phone Nicola Tello MD Primary Care Provider [phone] Encounter Details Date Type Department Care Team (Late st Contact Info) Description 12/22/2017 Ancillary Orders [address] [address] Sandra Degroot PA-C [address] [place] [address] Orthopedics & Sports Medicine, [place] [address] [email or web address] Right hip pain Social History Tobacco Use [...] thigh documented in this encounter Care Teams Heliarc Welder Relationship Specialty Start Date End Date Nicola Tello MD [address] [place] [address] [email or web address] PCP - General 10/21/17 documented as of this encounter Additional Source Comments The information contained in this document represents components of the legal health record. It is not the complete legal health record.[facility]
--- OUTSIDE RECORDS SUMMARY | 2025-09-01 00:24 | XMS_ITS | Clinical Summary ---
Author Organization [facility] Address [address] [place] [address] Phone Care Team Providers Care Hot Plate Plywood Press Feeder Name Role Phone ChrisJordyn Lagos EAGLE Primary Care Provider Encounters Date Type Department Care Team Description 06/26/2025 10:11 AM EDT - 06/26/2025 11:59 PM EDT Hospital Encounter [facility] [address] [place] [address] Encounter for screening mammogram for [...] for biopsy. PQRI CPT II 3341F Code 23194, 48393 PQRI 225 CPT II 7025F TISSUE DENSITY: The breasts are almost entirely fatty. (BI-RADS Category A) IMPRESSION: Benign. BI-RADS CATEGORY: 1 - NEGATIVE RECOMMENDATION: Screening bilateral mammogram is recommended in 1 year. Mammo Location: [facility], [address] [place] [address] -------- FINAL REPORT -------- Dictated By: Cleveland Lundberg Dictated Date: 06/26/2025 10:49 ET Assigned Physician: Cleveland Lundberg Reviewed and Electronically Signed By: Cleveland Lundberg Signed Date: 06/26/2025 10:52 ET Workstation ID: [id number] Transcribed By: Self Edit Transcribed Date: 06/26/2025 10:49 ET Narrative 06/26/2025 10:52 AM EDT CLINICAL: The patient is a 70 years Female presenting for routine screening mammography. COMPARISON: Most recently 06/22/2023 and most remotely 11/11/2015. TECHNIQUE: Full-field digital mammography of the breasts bilaterally consisting of tomosynthesis in MLO and CC projection is performed in the [employer] 2000-D unit. Computer aided detection utilizing the [...] MLO and CC projection is performed in the[employer] Edition[employer]he 2000-D unit. Computer aided detection utilizing the [employer] was utilized. FINDINGS: The breasts are again [...] for biopsy. PQRI CPT II 3341F Code 84524, 29729 PQRI 225 CPT II 7025F TISSUE DENSITY: The breasts are almost entirely fatty. (BI-RADS CategoryA) IMPRESSION: Benign. BI-RADS CATEGORY: 1 - NEGATIVE RECOMMENDATION: Screening bilateral mammogram is recommended in 1 year. Mammo Location: [facility], [address] [place] [address] -------- FINAL REPORT -------- Dictated By: Cleveland Lundberg Dictated Date: 06/26/2025 10:49 ET Assigned Physician: Cleveland Lundberg Reviewed and Electronically Signed By: Cleveland Lundberg Signed Date: 06/26/2025 10:52 ET Workstation ID: [id number] Transcribed By: Self Edit Transcribed Date: 06/26/2025 10:49 ET us Jordyn Zuluaga [facility] IM[facility] BI PROCEDURES Final Res ult * PRIYANK DEXA AXIAL SKELETON (06/22/2023 3:40 PM EDT) Anatomical Region Laterality Modality Mammography 06/22/2023 10:3 8 AM EDT Narrative 06/22/2023 3:40 PM EDT [facility] Diagnostic Imaging Department [address] [place] [id number] Patient: GEORGI PHELPS Vandana /Age/Sex: 1955 - 68 - F Unit#: [id number] Location/Status: SPDIMAM/REG CLI Mnemonic/Ordering Site: MAMDEXAAX/SPMAM Ordering Physician: AZ ZALDIVAR Priyank Dexa Axial Skeleton - 06/22/23 - [id number] Report Status:Signed History: Low estrogen state due to menopause. Bilateral hip replacements. Comparison: 02/06/21 Findings: Bone densitometry is performed utilizing dual energy x-ray absorptiometry (DXA) in the [employer] unit. The lumbar spine is evaluated in [...] lumbar spine only analysis. No significant change. [id number] Dictating Physician: JESSICA WELCH MD Electronically Signed by: JESSICA WELCH MD Dic Date/Time: 06/22/23 1530 Sign date/Time: 06/22/23 1540 Procedure Note Jessica Welch MD - 11/23/2023 [facility] Diagnostic Imaging Department [address] [place] [address] Patient: GEORGI PHELPS /Age/Sex: 1955 - 68 - F Unit#: [id number] Location/Status: SPDIMAM/REG CLI Mnemonic/Ordering Site: MAMDEXAAX/SPMAM Ordering Physician: AZ ZALDIVAR Priyank Dexa Axial Skeleton - 06/22/23 - [id number] Report Status:Signed History: Low estrogen state due to menopause. Bilateral hipreplacements. Comparison: 02/06/21 Findings: Bone densitometry is performed utilizing dual energy x-ray absorptiometry(DXA) in the [employer] unit. The lumbar spine is evaluated in [...] on lumbar spine only analysis. Nosignificant change. [id number] Dictating Physician: JESSICA WELCH MD Electronically Signed by: JESSICA WELCH MD Dic Date/Time: 06/22/23 1539 Sign date/Time: 06/22/23 1540 Az Zaldiavr SENIOR MATERIALS PLANNER IMG BI PROCEDURES Final Result from Last 3 Months or Most Recently Relevant to Health Maintenance Insurance MEDICARE [facility] Care Teams Hot Plate Plywood Press Feeder Relationship Specialty Start Date End Date Jordyn Zuluaga FNP [address] [place] [address] [place] [phone] PCP - General Nurse Practitioner 06/26/25
--- OUTSIDE RECORDS SUMMARY | 2025-09-01 00:24 | XMS_ITS | Clinical Summary ---
Author Organization [facility] Address [address] [place] [address] Care Team Providers Care Nut Culler Name Role Phone Nicola Tello MD Primary Care Provider [phone] Allergies No known active allergies Medications Medication Sig Dispensed Refills Start Date End Date Status lisinopril (PRINIVIL,ZESTRIL) tablet 20 mg daily. 0 06/29/2016 Active atorvastatin (LIPITOR) tablet 40 mg daily. 0 05/29/2016 Active traMADol (ULTRAM) 50 MG tablet every evening. 0 07/17/2016 Active zolpidem (AMBIEN) 5 MG tablet every evening. 0 06/29/2016 Active Active Problems Problem Noted Date Diagnosed Date Essential hypertension, benign 07/22/2016 Preop cardiovascular exam 07/22/2016 Pure hypercholesterolemia 07/22/2016 Nonrheumatic aortic valve insufficiency 07/22/20 16 Degenerative joint disease (DJD) of hip 07/22/20 16 Family History Medical History Relation Name Comments Cancer Father Relation Name Status Comments Brother Alive Father Mother Social History Tobacco Use Types Packs/Day Years Used Date Smoking Tobacco: Former Cigarettes Smokeless Tobacco: Never Alcohol Use Standard Drinks/Week Comments Not Asked 14 (1 standard drink = 0.6 oz pu re alcohol) Sex and Gender Information Value Date Recorded Sex Assigned at Not on file Gender Identity Not on file Sexual Orientation Not on file Last Filed Vital Signs Vital Sign Reading Time Taken Comments Blood Pressure 124/70 07/22/2016 1:30 PM EDT Pulse 93 07/22/2016 1:30 PM EDT Temperature - - Respiratory Rate - - Oxygen Saturation 95% 07/22/2016 1:30 PM EDT Inhaled Oxygen Concentration - - Weight 81.2 kg (179 lb) 07/22/2016 1:30 PM EDT Height 165.1 cm (5' 5 ) 07/22/2016 1:30 PM EDT Body Mass Index 29.79 07/22/2016 1:30 PM EDT Plan of Treatment Health Maintenance Due Date Last Done Comments Hepatitis C Screening 1955 COVID-19 Vaccine (#1) 1955 Depression Screening 1967 Preventative Health Evaluation 1973 DTap / Tdap / Td (1 - Tdap) 1974 Colon Cancer Screening (Colonoscopy) 01/19/2000 Breast Cancer Screening (Mammogram) 2005 Shingrix-Zoster Vaccine (1 of 2) 2005 Fall Risk Assessment 01/19/2020 Osteoporosis Screening (DEXA Scan) 01/19/2020 Pneumococcal Vaccine (1 of 1 - PCV) 01/19/2020 Influenza Vaccine (#1) 2025 RSV Adult > 60+ Yrs or Pregn ant (1 - 1-dose 75+ series) 2030 Hepatitis B Vaccines Aged Out No long er eligible based on patient's age to complete this topic RSV Ped < 20 months Aged Out No longe r eligible based on patient's age to complete this topic Care Teams Nut Culler Relationship Specialty Start Date End Date Nicola Tello MD [address] [place] [id number] PCP - General Internal Medicine 06/17/16
== END 2025-08-31 15:52 | disposition home or self-care (01) ==
LOC: HO.HMCFM 15:25
PROVIDERS: PCP Nurse Practitioner Family; Visit Provider Internal Medicine
DX: Z01.810 Encounter for preprocedural cardiovascular examination (principal); I10 Essential (primary) hypertension; M25.511 Pain in right shoulder